=== PATIENT | female | born 1950 | race Caucasian/White ===

== ENCOUNTER → 2017-04-09 | Day surgery (SDC) | payer MEDICARE, SELFPAY | PROVIDERS: Family Provider Nurse Practitioner Family; Visit Provider Nurse Anesthetist, Certified Registered | DX: M46.1 Sacroiliitis, not elsewhere classified (principal) | CPT/HCPCS: 27096; G0260; J1040 ==

== ENCOUNTER → 2017-05-06 15:51 | Outpatient (POV) | payer MEDICARE, SELFPAY ==
[2017-05-06 16:32] VITALS: BP 184/90; PULSE 77; RESP 18; O2SAT 96; BMI 34.9
--- NOTE | 2017-05-06 16:46 | HMH.PAINSOAP ---
[facility] Pain Management SOAP Note Subjective:: This patient is a pleasant 67-year-old white female who is status post bilateral SI joint injections in March. She notes significant relief. She has 90% better. These injections worked better than previous lumbar epidural steroid injections. She is doing well with no complaints at this time. Objective:: Alert and oriented ?3 in no acute distress. Patient does have an antalgic gait. Motor strength of the lower extremities is 5/5. There is no gross sensory deficit. Assessment:: Bilateral sacroiliitis. Degenerative disc disease of lumbar spine with lumbar radiculopathy symptoms. Plan:: This patient is doing very well. Will follow up with her in 3 months. If she does have aggravation of her pain between now and then she is to call us back in the pain clinic.
== END ==
PROVIDERS: Family Provider Nurse Practitioner Family; PCP Nurse Practitioner Family; Visit Provider Anesthesiology
DX: M46.1 Sacroiliitis, not elsewhere classified (principal)
CPT/HCPCS: 99212

== ENCOUNTER → 2017-06-18 09:45 | Outpatient (POV) | payer MEDICARE, SELFPAY ==
[2017-06-18 09:59] VITALS: BP 186/81; PULSE 70; RESP 18; TEMP 36.6; O2SAT 95; BMI 39.0
--- NOTE | 2017-06-18 10:09 | HMH.PAINSOAP ---
[facility] Pain Management SOAP Note Subjective:: Patient is a pleasant 67-year-old white female who presents today to discuss potential SI joint injections. Patient has had them back in March and has had 80-90% relief for 8 weeks. patient is beginning to have the pain returned. Patient is interested in a repeat bilateral SI joint injection. Patient states that she has been more functional since this last one. Patient has tried and failed physical therapy in the past ROS General: no recent weight change, no fever, no sleep disturbances Respiratory: no cough, no shortness of air, no recurring pulmonary infections Cardiovascular/Peripheral Vascular: No chest pain, No palpitations, no edema, no shortness of breath. Gastrointestinal: no incontinence, normal bowel movements reported Genitourinary: no incontinence Musculoskeletal: Bilateral SI joint pain Psychiatric: normal mood/ affect, [denies depression], [denies anxiety] Neurological: [denies weakness in extremities], [denies balance issues] Objective:: Physical Exam General: Alert and oriented x3, no acute distress, pleasant and cooperative, [on room air] Lungs: Resps E/U, Symmetrical chest expansion, [CTA bilateral] Eyes: PERRL Musculoskeletal: Flexion and extension of lumbar spine somewhat guarded secondary to pain, deep tendon reflexes normal, strength in upper and lower extremities [5/5], slightly antalgic gait noted, bilateral Darnell's test positive. 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 Patient has done very well with her injections in the past. This note was dictated using voice recognition software may contain errors or omissions
--- NOTE | 2017-06-18 10:12 | P.CONS_ITS ---
[facility] Pain Management SOAP Note Subjective:: Patient is a pleasant 67-year-old white female who presents today to discuss potential SI joint injections. Patient has had them back in March and has had 80-90% relief for 8 weeks. patient is beginning to have the pain returned. Patient is interested in a repeat bilateral SI joint injection. Patient states that she has been more functional since this last one. Patient has tried and failed physical therapy in the past ROS General: no recent weight change, no fever, no sleep disturbances Respiratory: no cough, no shortness of air, no recurring pulmonary infections Cardiovascular/Peripheral Vascular: No chest pain, No palpitations, no edema, no shortness of breath. Gastrointestinal: no incontinence, normal bowel movements reported Genitourinary: no incontinence Musculoskeletal: Bilateral SI joint pain Psychiatric: normal mood/ affect, [denies depression], [denies anxiety] Neurological: [denies weakness in extremities], [denies balance issues] Objective:: Physical Exam General: Alert and oriented x3, no acute distress, pleasant and cooperative, [ on room air] Lungs: Resps E/U, Symmetrical chest expansion, [CTA bilateral] Eyes: PERRL Musculoskeletal: Flexion and extension of lumbar spine somewhat guarded secondary to pain, deep tendon reflexes normal, strength in upper and lower extremities [5/5], slightly antalgic gait noted, bilateral Darnell's test positive. Neurological: speech clear, emu farmer equal, no gross sensory deficits Assessment:: sacroiliitis Plan:: We will plan a repeat bilateral SI joint injection for this patient. Patient has done very well with her injections in the past. This note was dictated using voice recognition software may contain errors or omissions
== END ==
PROVIDERS: Family Provider Nurse Practitioner Family; PCP Nurse Practitioner Family; Visit Provider Clinical Nurse Specialist Family Health
DX: M46.1 Sacroiliitis, not elsewhere classified (principal)
CPT/HCPCS: 99212

== ENCOUNTER 2017-07-05 12:43 | Day surgery (SDC) | payer MEDICARE, SELFPAY ==
[2017-07-05 12:58] VITALS: BP 156/78; PULSE 78; RESP 18; O2SAT 95; BMI 32.3
--- NOTE | 2017-07-05 13:49 | HMH.PMPROC ---
- Procedure Date: 07/05/17 Time: 13:51 Anesthesiologist:: French Velez MD Complications:: None Pre-procedure Diagnosis:: Sacroiliitis Post-procedure Diagnosis:: Same Indications for Procedure:: This patient is a pleasant 67-year-old white female who we are seeing for bilateral sacroiliitis. She is tender over both SI joints. Positive Darnell's bilaterally. She benefited previously from bilateral SI joint injections with 80-90% relief in her pain symptoms. Her pain is starting to come back over both SI joints. We will do bilateral SI joint injections today to see if this helps with her pain symptoms. Procedure Details:: B/L SI joint injection under fluoroscopy Informed consent was obtained and the risks and benefits of the procedure was explained to the patient. The patient was taken to the procedure room and placed prone on the procedure table. The patient was prepped using ChloraPrep. The skin and subcutaneous tissues overlying the SI joints were anesthetized using lidocaine. I placed a 22-gauge needle first in the left SI joint and second in the right SI joint. Needle placement was confirmed with dye. After this we injected 5 mL bupivacaine 0.25% and Depo-Medrol 40 mg into each SI joint. Patient tolerated the procedure well with no complication. Plan and Disposition:: We will follow-up with her in 2 weeks. Will reevaluate symptoms at that time.
[2017-07-05 14:01] VITALS: BP 160/95; PULSE 68; RESP 18
[2017-07-05 14:02] VITALS: BP 155/75; PULSE 70; RESP 18
[2017-07-05 14:15] VITALS: BP 141/66; PULSE 68; O2SAT 98
== END 2017-07-05 14:15 | disposition home or self-care (01) ==
LOC: SC.PAINP 12:46
PROVIDERS: Family Provider Nurse Practitioner Family; PCP Nurse Practitioner Family; Visit Provider Anesthesiology
DX: M46.1 Sacroiliitis, not elsewhere classified (principal)
CPT/HCPCS: 27096; G0260; J1030; Q9966

== ENCOUNTER → 2017-08-05 14:10 | Outpatient (CLI) | payer MEDICARE, SELFPAY ==
[2017-08-05 14:46] LABS: Basophils % 0.5 % (0.1-2.0); Eosinophils # 0.2 K/mm3 (0.0-0.4); Eosinophils % 3.7 % (0.1-12.0); Hematocrit 42.3 % (37.0-47.0); Hemoglobin 14.1 g/dL (12.2-16.2); Lymphocytes # 1.3 K/mm3 (0.7-4.5); Lymphocytes % 22.2 K/mm3 (10-50); Mean Corpuscular HGB Conc 33.4 g/dL (31.8-35.4); Mean Corpuscular Hemoglobin 29.9 pg (27.0-31.2); Mean Corpuscular Volume 89.4 fl (81-99); Mean Platelet Volume 7.8 fl (7.4-10.4); Monocytes # 0.2 K/mm3 (0.1-1.0); Monocytes % 3.8 % (1.7-9.3); Neutrophils # 4.2 K/mm3 (1.8-7.8); Neutrophils % 69.8 % (37.0-80.0); Platelet Count 203 K/mm3 (142-424); Red Blood Count 4.73 M/mm3 (4.20-5.40); Red Cell Distribution Width 12.9 % (11.5-17.5)
[2017-08-05 15:34] LABS: Alanine Aminotransferase 42 U/L (12-78); Albumin Level 3.6 gm/dL (3.4-5.0); Albumin/Globulin Ratio 1.2 (1.1-1.8); Alkaline Phosphatase 96 U/L (46-116); Anion Gap 12.6 mEq/L (5-15); Aspartate Amino Transferase 27 U/L (15-37); Bilirubin,Total 0.3 mg/dL (0.2-1.0); Blood Urea Nitrogen 33 mg/dL (7-18); Calcium 9.2 mg/dL (8.5-10.1); Carbon Dioxide 30 mmol/L (21.0-32.0); Chloride 105 mmol/L (98-107); Creatinine,Serum 1.03 mg/dL (0.55-1.02); Estimated Glomerular Filt Rate 53 ml/min (>60); GFR (African American) 64 ML/MIN (>60); Globulin 3.1 gm/dl (1.3-3.2); Glucose 106 mg/dL (74-106); Potassium 3.6 mmoL/L (3.5-5.1); Sodium 144 mmol/L (136-145); Total Protein,Serum 6.7 gm/dL (6.4-8.2)
[2017-08-05 15:44] LABS: Free T4 (Free Thyroxine) 1.01 ng/dl (0.76-1.46); Thyroid Stimulating Hormone 1.58 uIU/ml (0.358-3.740)
== END ==
PROVIDERS: Visit Provider Otolaryngology
DX: Z01.818 Encounter for other preprocedural examination (principal); L98.9 Disorder of the skin and subcutaneous tissue, unspecified; E01.0 Iodine-deficiency related diffuse (endemic) goiter
CPT/HCPCS: 36415; 80053; 84439; 84443; 85025; 93005

== ENCOUNTER → 2017-08-15 15:08 | Outpatient (CLI) | payer MEDICARE, SELFPAY ==
--- NOTE | 2017-08-15 15:12 | US_ITS ---
US thyroid HISTORY: ITS.REASON: ENLARGED THYROID,IODINE DEFICIENCY,GOITER ORDERING PHYSICIAN: Kadeem Suarez MD PATIENT AGE: 67 years FINDINGS: The right lobe is 4.5 x 1.7 x 1.3 cm. 5 mm cyst mid polar region 4 mm slightly hypoechoic nodule mid polar region 6 mm cyst lower pole. 7 mm cyst lower pole The left lobe is 4.3 x 1.6 x 1.6 cm Mixed 4 mm hypoechoic nodule upper pole 3 mm hypoechoic nodule mid pole 5 mm hypoechoic nodule mid pole The isthmus is slightly prominent at 4 mm with some nodularity along left aspect of the isthmus at 4 mm isoechoic. IMPRESSION: 1. Mild thyromegaly. 2. Bilateral subcentimeter thyroid nodules, low suspicion for malignancy. Consider 6 month follow-up to confirm short-term stability
== END ==
PROVIDERS: Family Provider Nurse Practitioner Family; PCP Nurse Practitioner Family; Visit Provider Otolaryngology
DX: E01.0 Iodine-deficiency related diffuse (endemic) goiter (principal)
CPT/HCPCS: 76536

== ENCOUNTER → 2018-03-14 08:21 | Outpatient (CLI) | payer MEDICARE, SELFPAY ==
--- NOTE | 2018-03-14 08:24 | US_ITS ---
US thyroid HISTORY: Follow-up nodule/goiter ITS.REASON: Goiter ORDERING PHYSICIAN: Kadeem Suarez MD PATIENT AGE: 67 years Comparison: 08/15/2017 FINDINGS: The right lobe is 4.5 x 1.6 x 1.7 cm. Multiple nodules are present which do not appear significantly changed and described below Nodule A: Mid polar region 4 mm cystic Nodule B: 3 mm isoechoic nodule mid aspect. Nodule C: 6 x 4 mm cyst lower pole Nodule D: 8 x 4 mm hypoechoic nodule lower pole The left lobe is 4.3 x 1.7 x 1.6 cm. Nodule A: Upper pole hypoechoic 5 x 3 mm unchanged Nodule B: 3 x 2 mm hypoechoic nodule mid polar region Nodule C: Cystic nodule lower pole millimeters unchanged Nodule D: 4 mm cystic nodule lower pole unchanged The ethmoid sinuses mildly thickened at 4 mm unchanged. IMPRESSION: No change in enlarged thyroid gland with multiple benign-appearing nodules
== END ==
PROVIDERS: PCP Internal Medicine Adolescent Medicine; Visit Provider Otolaryngology
DX: E04.9 Nontoxic goiter, unspecified (principal)
CPT/HCPCS: 76536

== ENCOUNTER → 2018-04-22 08:22 | Outpatient (CLI) | payer MEDICARE, SELFPAY ==
--- NOTE | 2018-04-22 08:26 | MM_ITS ---
MM Dig screening mamm BI w/CAD ORDERING PHYSICIAN : Lo Loyola PATIENT AGE: 68 years GENDER: Female COMPARISON: May 2016, February 2015, December 2013. April 2012. April 2006 INDICATION: ITS.REASON: SCREENING no hormones. No new complaints. Mainly history. Maternal aunt with breast cancer TECHNIQUE: Standard CC and MLO images were obtained. R2 CAD reviewed. FINDINGS: Low-density breast bilaterally with no suspicious mass or suspicious calcification breast. No significant new findings. RIGHT BREAST: No new areas of concern. The small slightly bilobed nodular density at the inferior medial breast unchanged. Studies dating back to at least 2013 and 2012. Again be followed. Small lymph node deep axillary right breast is unchanged. Central lucency reflecting benign lymph node LEFT BREAST:Stable left breast with no new areas of concern. The large up to 4.5 cm length benign fat filled left axillary lymph node is been seen on studies from 2013 & April 2006. Unchanged.. IMPRESSION: Stable bilateral mammogram. No new areas of concern Bilateral follow-up one year BI-RADS Category: 2 Benign Finding(s) RECOMMENDED FOLLOW-UP: 1YR 1 YEAR FOLLOW-UP (A letter has been sent to the patient regarding results of the study.)
== END ==
PROVIDERS: PCP Nurse Practitioner Family; Visit Provider Nurse Practitioner Family
DX: Z12.31 Encounter for screening mammogram for malignant neoplasm of breast (principal)
CPT/HCPCS: 77067

== ENCOUNTER → 2018-08-18 14:45 | Outpatient (CLI) | payer MEDICARE, SELFPAY ==
--- NOTE | 2018-08-18 14:47 | US_ITS ---
US thyroid HISTORY: Trouble swallowing, dysphasia ITS.REASON: GOITER, 6 MONTH F/U ORDERING PHYSICIAN: Kadeem Suarez MD PATIENT AGE: 68 years Comparison: 03/14/2018 FINDINGS: The right lobe is 4.4 x 1.5 x 1.4 cm. There are multiple cysts on the right which are unchanged. There is an 8 mm ill-defined isoechoic area in the lower pole posteriorly not as well demonstrated on 03/14/2018 but did appear to be present on 08/15/2017 and not significantly changed. The left lobe is 4 x 1.4 x 1.4 cm. Multiple benign-appearing hypoechoic nodules are present on the left measuring up to 7 mm in the lower pole. These are stable. The isthmus is slightly prominent at 4 mm. IMPRESSION: Overall stable appearance of the thyroid gland with small bilateral nodules which have low level of suspicion for malignancy
[2018-08-18 18:52] LABS: Free T4 (Free Thyroxine) 0.96 ng/dl (0.76-1.46); Thyroid Stimulating Hormone 1.13 uIU/ml (0.358-3.740)
== END ==
PROVIDERS: PCP Internal Medicine Adolescent Medicine; Visit Provider Otolaryngology
DX: E04.9 Nontoxic goiter, unspecified (principal)
CPT/HCPCS: 36415; 76536; 84439; 84443

== ENCOUNTER → 2018-08-18 15:44 | Outpatient (CLI) | payer MEDICARE, SELFPAY | PROVIDERS: Visit Provider Otolaryngology | DX: E04.9 Nontoxic goiter, unspecified (principal) | CPT/HCPCS: 36415; 84439; 84443 ==

== ENCOUNTER → 2018-08-22 14:06 | Outpatient (POV) | payer MEDICARE, SELFPAY ==
[2018-08-22 14:36] VITALS: BP 175/89; PULSE 74; RESP 20; O2SAT 96; BMI 39.0
--- NOTE | 2018-08-22 14:46 | P.CONS_ITS ---
[facility] Pain Management SOAP Note Subjective:: This patient is a pleasant 68-year-old white female who we previously saw for bilateral hip pain. She has had bilateral SI joint injections in the past which have helped her tremendously. Her last injection gave her increased pain. She is not been here for several months. She now has developed increasing pain over both hips. She has a positive compression test over both SI joints. She does have a positive Darnell's test and positive Laura test. I believe she would benefit from repeat bilateral SI joint injections under fluoroscopy. Objective:: Alert and oriented x3 in no acute distress. Patient does have an antalgic gait. Motor strength of the lower extremities is 5/5. There is no gross sensory deficit. There is tenderness over both SI joints. Positive SI joint compression test. Positive Darnell's test and positive Laura test. Assessment:: Chronic sacroiliitis Plan:: We will seek approval and plan on bilateral SI joint injections under fluoroscopy.
== END ==
PROVIDERS: PCP Internal Medicine Adolescent Medicine; Visit Provider Anesthesiology
DX: M46.1 Sacroiliitis, not elsewhere classified (principal)
CPT/HCPCS: 99212

== ENCOUNTER 2018-09-05 08:33 | Day surgery (SDC) | payer MEDICARE, SELFPAY ==
[2018-09-05 08:40] VITALS: BP 154/73; PULSE 77; RESP 18; TEMP 36.5; O2SAT 94; BMI 39.0
[2018-09-05 09:12] VITALS: BP 145/83; PULSE 76; RESP 18; O2SAT 95; O2SAT 96
[2018-09-05 09:20] VITALS: BP 152/86; PULSE 68; RESP 18
--- NOTE | 2018-09-05 09:30 | HMH.PMPROC ---
- Procedure Date: 09/05/18 Time: 09:30 Anesthesiologist:: French Velez MD Complications:: None Pre-procedure Diagnosis:: Sacroiliitis Post-procedure Diagnosis:: Same Indications for Procedure:: This patient is a pleasant 68-year-old white female who we are treating for bilateral hip pain. She is tender over both SI joints. She has a positive compression test. She has a positive Darnell's test and a positive Laura test. She is benefited previously from SI joint injections. She is 60 to 70% better after her last injection. She has pain that is starting to return. We will do repeat bilateral SI joint injections under fluoroscopy today. Procedure Details:: B/L SI joint injection under fluoroscopy Informed consent was obtained and the risks and benefits of the procedure was explained to the patient. The patient was taken to the procedure room and placed prone on the procedure table. The patient was prepped using ChloraPrep. The skin and subcutaneous tissues overlying the SI joints were anesthetized using lidocaine. I placed a 22-gauge needle first in the left SI joint and second in the right SI joint. Needle placement was confirmed with dye. After this we injected 5 mL bupivacaine 0.25% and Depo-Medrol 40 mg into each SI joint. Patient tolerated the procedure well with no complication. Plan and Disposition:: We will follow-up with this patient in 2 weeks. Will reevaluate symptoms at that time.
== END 2018-09-05 09:20 | disposition home or self-care (01) ==
LOC: SC.PAINP 08:34
PROVIDERS: PCP Internal Medicine Adolescent Medicine; Visit Provider Anesthesiology
DX: M46.1 Sacroiliitis, not elsewhere classified (principal)
CPT/HCPCS: 27096; G0260; J1030; Q9966

== ENCOUNTER → 2018-10-06 10:15 | Outpatient (POV) | payer MEDICARE, SELFPAY ==
[2018-10-06 10:24] VITALS: BP 165/82; PULSE 69; RESP 18; O2SAT 98; BMI 39.0
--- NOTE | 2018-10-06 10:36 | HMH.PAINSOAP ---
[facility] Pain Management SOAP Note Subjective:: Patient is a pleasant 68-year-old white female who we are treating for bilateral hip pain. She had bilateral SI joint injections about a month ago and reports that she had 90% relief with this. She has however started to develop pain to her lower back radiating to bilateral legs. She rates her pain a 4 out of 10 today. That she is also taking diclofenac 75 mg p.o. twice daily. She is also continuing a home stretching program. ROS General: no recent weight change, no fever, no sleep disturbances Respiratory: no cough, no shortness of air, no recurring pulmonary infections Cardiovascular/Peripheral Vascular: No chest pain, No palpitations, no edema, no shortness of breath. Gastrointestinal: no incontinence, normal bowel movements reported Genitourinary: no incontinence Musculoskeletal: Low back pain, bilateral leg pain Psychiatric: normal mood/ affect, [denies depression], [denies anxiety] Neurological: [denies weakness in extremities], [denies balance issues] Objective:: Physical Exam General: Alert and oriented x3, no acute distress, pleasant and cooperative, [on room air] Lungs: Resps E/U, Symmetrical chest expansion, Eyes: PERRL Musculoskeletal: Flexion and extension of lumbar spine somewhat guarded secondary to pain, deep tendon reflexes normal, strength in upper and lower extremities [5/5], [abnormal gait noted], positive Laura test, positive Darnell test, positive compression test Neurological: speech clear, diesel fitter mechanic equal, no gross sensory deficits Assessment:: Sacroiliitis Plan:: We will schedule the patient for bilateral SI joint injections. She will continue home stretching program and NSAIDs. We see her back after her procedure and reassess her symptoms at that time. She has been instructed to call the office if she has any issues before that time. Dr. Velez has reviewed this note and agrees with this plan of care. This note was dictated using voice recognition software and may contain errors or omissions
--- NOTE | 2018-10-06 10:41 | P.CONS_ITS ---
[facility] Pain Management SOAP Note Subjective:: Patient is a pleasant 68-year-old white female who we are treating for bilateral hip pain. She had bilateral SI joint injections about a month ago and reports that she had 90% relief with this. She has however started to develop pain to her lower back radiating to bilateral legs. She rates her pain a 4 out of 10 today. That she is also taking diclofenac 75 mg p.o. twice daily. She is also continuing a home stretching program. ROS General: no recent weight change, no fever, no sleep disturbances Respiratory: no cough, no shortness of air, no recurring pulmonary infections Cardiovascular/Peripheral Vascular: No chest pain, No palpitations, no edema, no shortness of breath. Gastrointestinal: no incontinence, normal bowel movements reported Genitourinary: no incontinence Musculoskeletal: Low back pain, bilateral leg pain Psychiatric: normal mood/ affect, [denies depression], [denies anxiety] Neurological: [denies weakness in extremities], [denies balance issues] Objective:: Physical Exam General: Alert and oriented x3, no acute distress, pleasant and cooperative, [on room air] Lungs: Resps E/U, Symmetrical chest expansion, Eyes: PERRL Musculoskeletal: Flexion and extension of lumbar spine somewhat guarded secondary to pain, deep tendon reflexes normal, strength in upper and lower extremities [5/5], [abnormal gait noted], positive Laura test, positive Darnell test, positive compression test Neurological: speech clear, book agent equal, no gross sensory deficits Assessment:: Sacroiliitis Plan:: We will schedule the patient for bilateral SI joint injections. She will continue home stretching program and NSAIDs. We see her back after her procedure and reassess her symptoms at that time. She has been instructed to call the office if she has any issues before that time. Dr. Velez has reviewed this note and agrees with this plan of care. This note was dictated using voice recognition software and may contain errors or omissions
== END ==
PROVIDERS: PCP Internal Medicine Adolescent Medicine; Visit Provider Clinical Nurse Specialist Family Health
DX: M46.1 Sacroiliitis, not elsewhere classified (principal)
CPT/HCPCS: 99212

== ENCOUNTER → 2018-11-25 10:37 | Outpatient (POV) | payer MEDICARE, SELFPAY ==
[2018-11-25 10:56] VITALS: BP 147/85; PULSE 77; RESP 18; O2SAT 99; BMI 39.0
--- NOTE | 2018-11-25 11:39 | HMH.PAINSOAP ---
[facility] Pain Management SOAP Note Subjective:: Patient is a pleasant 68-year-old white female who presents today for follow-up after SI joint injection. She is doing extremely well rating her pain a 2 out of 10 she states she gets 90% relief for several months with her injections. She would like to set one up in about a month. She is not on any anticoagulation therapy and is continuing her home stretching program. She is also continuing her anti-inflammatories as needed. ROS General: no recent weight change, no fever, no sleep disturbances Respiratory: no cough, no shortness of air, no recurring pulmonary infections Cardiovascular/Peripheral Vascular: No chest pain, No palpitations, no edema, no shortness of breath. Gastrointestinal: no incontinence, normal bowel movements reported Genitourinary: no incontinence Musculoskeletal: SI joint pain Psychiatric: normal mood/ affect Neurological: [denies weakness in extremities], [denies balance issues] Objective:: Physical Exam General: Alert and oriented x3, no acute distress, pleasant and cooperative, [on room air] Lungs: Resps E/U, Symmetrical chest expansion, Eyes: PERRL Musculoskeletal: Flexion and extension of lumbar spine somewhat guarded secondary to pain, deep tendon reflexes normal, strength in upper and lower extremities [5/5], slightly antalgic gait noted, positive Laura test positive Kvng's test and positive SI joint compression test bilaterally Neurological: speech clear, screen printing press operator equal, no gross sensory deficits Assessment:: Sacroiliitis Plan:: We will schedule her for bilateral SI joint injections in several weeks. Overall patient does extremely well with this.she is been instructed to call the office if she has any issues prior to next appointment. Dr. Velez has reviewed this note and agrees with this plan of care. This note was dictated using voice recognition software and may contain errors or omissions Pain Management Hx Components *Have you ever received a pneumonia vaccine?: Yes *Have you received a flu vaccine this season?: Yes - *Social History *Occupational Status:: other *Travel in the last 8 weeks: None
== END ==
PROVIDERS: PCP Internal Medicine Adolescent Medicine; Visit Provider Clinical Nurse Specialist Family Health
DX: M46.1 Sacroiliitis, not elsewhere classified (principal)
CPT/HCPCS: 99212

== ENCOUNTER → 2019-01-26 11:01 | Outpatient (POV) | payer MEDICARE, SELFPAY ==
[2019-01-26 11:37] VITALS: BP 127/78; PULSE 61; RESP 18; O2SAT 98; BMI 39.0
--- NOTE | 2019-01-26 12:14 | HMH.PAINSOAP ---
[facility] Pain Management SOAP Note Subjective:: Patient is a pleasant 68-year-old white female who presents today for follow-up after SI joint injections. Patient states she has no pain today. She would like to have another round of injections before the holidays. Patient gets typically 90% relief first several months after injections. Patient and I briefly talked about a corner lock procedure. This may be something to be interested in the future. ROS General: no recent weight change, no fever, no sleep disturbances Respiratory: no cough, no shortness of air, no recurring pulmonary infections Cardiovascular/Peripheral Vascular: No chest pain, No palpitations, no edema, no shortness of breath. Gastrointestinal: no incontinence, normal bowel movements reported Genitourinary: no incontinence Musculoskeletal: SI joint pain Psychiatric: normal mood/ affect, , Neurological: [denies weakness in extremities], [denies balance issues] Objective:: Physical Exam General: Alert and oriented x3, no acute distress, pleasant and cooperative, [on room air] Lungs: Resps E/U, Symmetrical chest expansion, [CTA bilateral] Eyes: PERRL Musculoskeletal: Flexion and extension of bar spine somewhat guarded secondary to pain, deep tendon reflexes normal, strength in upper and lower extremities [5/5], [abnormal gait noted] positive Laura test bilaterally, positive SI joint compression test bilaterally, positive Kvng's test Neurological: speech clear, senior lead java developer equal, no gross sensory deficits Assessment:: Sacroiliitis Plan:: We will schedule the patient for SI joint injections bilaterally prior to the holidays. I will follow-up with her 2 weeks after reassess her symptoms at that time she is been instructed to call the office if she has any issues prior to her next appointment. Dr. Velez has reviewed this note and agrees with this plan of care. This note was dictated using voice recognition software and may contain errors or omissions [facility] History I have reviewed the patient's past medical history: Yes Medical History: Reports:: Gastroesophageal Reflux Disease(GERD), Hyperlipidemia, Hypertension Denies:: Cancer, Diabetes Mellitus Type 1, Diabetes Mellitus Type 2, Internal Pacemaker, Lung Disease, MRSA, Seizures *Have you ever received a pneumonia vaccine?: Yes *Have you received a flu vaccine this season?: Yes Other Medical History: Reports: Blood Transfusion Reaction, Other Laterality Cases: Bilateral: Tonsillectomy Other Surgeries: Yes: Cardiac Catheterization, Hysterectomy-Total, Other. No: Pacemaker Amputation: No Fractures: No - *Social History Smoking Status: Never smoker Alcohol Intake: current Alcohol Intake Frequency:: holidays/special occasions only *Occupational Status:: other Housing: house Household Members: significant other *Travel in the last 8 weeks: None Family Hx:: Coronary Artery Disease, Diabetes
== END ==
PROVIDERS: PCP Internal Medicine Adolescent Medicine; Visit Provider Clinical Nurse Specialist Family Health
DX: M46.1 Sacroiliitis, not elsewhere classified (principal)
CPT/HCPCS: 99212

== ENCOUNTER → 2019-03-23 10:18 | Outpatient (POV) | payer MEDICARE, SELFPAY ==
--- NOTE | 2019-03-23 10:48 | HMH.PAINSOAP ---
[facility] Pain Management SOAP Note Subjective:: Patient is a pleasant 69-year-old white female who presents today for follow-up after bilateral SI joint injections overall she is doing well. She rates her pain a 4 out of 10 however it is mostly in her left knee. Patient and I discussed getting in some x-rays and potential knee injections. She like to try to do this before the end of the year. She is also will be traveling and would like to set up some SI joint injections for June. She gets 80% relief after 3 months with her injections. She has tried and failed physical therapy, anti-inflammatories. She is continuing with a home stretching program. ROS General: no recent weight change, no fever, no sleep disturbances Respiratory: no cough, no shortness of air, no recurring pulmonary infections Cardiovascular/Peripheral Vascular: No chest pain, No palpitations, no edema, no shortness of breath. Gastrointestinal: no new onset incontinence, normal bowel movements reported Genitourinary: no new onset incontinence Musculoskeletal: Left knee pain, SI joint pain Psychiatric: normal mood/ affect Neurological: [denies new onset weakness in extremities], [denies new onset balance issues] Objective:: Physical Exam General: Alert and oriented x3, no acute distress, pleasant and cooperative, [on room air] Lungs: Resps E/U, Symmetrical chest expansion, Eyes: PERRL Musculoskeletal: Flexion and extension of lumbar spine somewhat guarded secondary to pain, deep tendon reflexes normal, strength in upper and lower extremities [5/5], [abnormal gait noted] decreased range of motion left knee secondary to pain, positive Laura test, positive Darnell's test and positive SI joint compression test bilaterally Neurological: speech clear, 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 We will also set her up for bilateral SI joint injections in June. I will follow-up with the patient after her injections reassess her symptoms at that time she is been instructed to call the office if she has any issues prior to her next appointment. Dr. Velez has reviewed this note and agrees with this plan of care. This note was dictated using voice recognition software and may contain errors or omissions [facility] History I have reviewed the patient's past medical history: Yes Medical History: Reports:: Gastroesophageal Reflux Disease(GERD), Hyperlipidemia, Hypertension Denies:: Cancer, Diabetes Mellitus Type 1, Diabetes Mellitus Type 2, Internal Pacemaker, Lung Disease, MRSA, Seizures *Have you ever received a pneumonia vaccine?: (n/a) *Have you received a flu vaccine this season?: (n/a) Other Medical History: Reports: Blood Transfusion Reaction, Other Laterality Cases: Bilateral: Tonsillectomy Other Surgeries: Yes: Cardiac Catheterization, Hysterectomy-Total, Other. No: Pacemaker Amputation: No Fractures: No - *Social History Smoking Status: Never smoker Alcohol Intake: current Alcohol Intake Frequency:: a few times a month *Occupational Status:: retired Housing: house Household Members: significant other *Travel in the last 8 weeks: None Family Hx:: Coronary Artery Disease, Diabetes
--- NOTE | 2019-03-23 10:51 | P.CONS_ITS ---
[facility] Pain Management SOAP Note Subjective:: Patient is a pleasant 69-year-old white female who presents today for follow-up after bilateral SI joint injections overall she is doing well. She rates her pain a 4 out of 10 however it is mostly in her left knee. Patient and I discussed getting in some x-rays and potential knee injections. She like to try to do this before the end of the year. She is also will be traveling and would like to set up some SI joint injections for June. She gets 80% relief after 3 months with her injections. She has tried and failed physical therapy, anti- inflammatories. She is continuing with a home stretching program. ROS General: no recent weight change, no fever, no sleep disturbances Respiratory: no cough, no shortness of air, no recurring pulmonary infections Cardiovascular/Peripheral Vascular: No chest pain, No palpitations, no edema, no shortness of breath. Gastrointestinal: no new onset incontinence, normal bowel movements reported Genitourinary: no new onset incontinence Musculoskeletal: Left knee pain, SI joint pain Psychiatric: normal mood/ affect Neurological: [denies new onset weakness in extremities], [denies new onset balance issues] Objective:: Physical Exam General: Alert and oriented x3, no acute distress, pleasant and cooperative, [on room air] Lungs: Resps E/U, Symmetrical chest expansion, Eyes: PERRL Musculoskeletal: Flexion and extension of lumbar spine somewhat guarded secondary to pain, deep tendon reflexes normal, strength in upper and lower extremities [5/5], [abnormal gait noted] decreased range of motion left knee secondary to pain, positive Laura test, positive Darnell's test and positive SI joint compression test bilaterally Neurological: 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 We will also set her up for bilateral SI joint injections in June. I will follow-up with the patient after her injections reassess her symptoms at that time she is been instructed to call the office if she has any issues prior to her next appointment. Dr. Velez has reviewed this note and agrees with this plan of care. This note was dictated using voice recognition software and may contain errors or omissions [facility] History I have reviewed the patient's past medical history: Yes Medical History: Reports:: Gastroesophageal Reflux Disease(GERD), Hyperlipidemia, Hypertension Denies:: Cancer, Diabetes Mellitus Type 1, Diabetes Mellitus Type 2, Internal Pacemaker, Lung Disease, MRSA, Seizures *Have you ever received a pneumonia vaccine?: (n/a) *Have you received a flu vaccine this season?: (n/a) Other Medical History: Reports: Blood Transfusion Reaction, Other Laterality Cases: Bilateral: Tonsillectomy Other Surgeries: Yes: Cardiac Catheterization, Hysterectomy-Total, Other. No: Pacemaker Amputation: No Fractures: No - *Social History Smoking Status: Never smoker Alcohol Intake: current Alcohol Intake Frequency:: a few times a month *Occupational Status:: retired Housing: house Household Members: significant other *Travel in the last 8 weeks: None Family Hx:: Coronary Artery Disease, Diabetes
[2019-03-23 12:46] VITALS: BP 142/75; PULSE 74; RESP 18; O2SAT 99; BMI 39.0
== END ==
PROVIDERS: PCP Internal Medicine Adolescent Medicine; Visit Provider Clinical Nurse Specialist Family Health
DX: M46.1 Sacroiliitis, not elsewhere classified (principal); M25.562 Pain in left knee
CPT/HCPCS: 99212

== ENCOUNTER → 2019-04-01 09:50 | Outpatient (CLI) | payer MEDICARE, SELFPAY ==
--- NOTE | 2019-04-01 09:54 | XR_ITS ---
PROCEDURE: XR KNEE LT 3V CLINICAL INDICATION: LT KNEE PAIN COMPARISON: No exams were available for comparison FINDINGS: No fracture or dislocation. No lytic or blastic change. Moderate to severe osteoarthritic change medial compartment with chondrocalcinosis medial lateral meniscus. Mild osteoarthritic changes are present at the lateral compartment and patellofemoral joint. No fracture or dislocation. IMPRESSION: Osteoarthritis with chondrocalcinosis Dictated by: Mateo Holt MD 04/01/2019 11:55 Electronically signed by Mateo Holt MD in [place] 04/01/2019 11:55
== END ==
PROVIDERS: PCP Internal Medicine Adolescent Medicine; Visit Provider Clinical Nurse Specialist Family Health
DX: M25.562 Pain in left knee (principal)
CPT/HCPCS: 73562

== ENCOUNTER → 2019-04-13 11:58 | Outpatient (POV) | payer MEDICARE, SELFPAY ==
[2019-04-13 12:15] VITALS: BP 154/68; PULSE 64; RESP 18; O2SAT 98; BMI 39.0
--- NOTE | 2019-04-13 12:17 | HMH.PAINSOAP ---
[facility] Pain Management SOAP Note Subjective:: Patient is a pleasant 69-year-old white female who presents today for follow-up after a left knee intra-articular injection. She is being treated for left knee pain with degenerative osteoarthritis. Patient rates her pain a 0 out of 10 today. She says that she got 100% relief and is continuing to have relief of her knee pain. She says she is able to walk and stand for longer periods of time. Patient is leaving to go to [place] for the winter months. She says that she is feeling well and is not having any problems at this time. Patient is continuing with anti-inflammatories and a home stretching program. Review of Systems General: No recent weight changes, no fever, no sleep disturbances Respiratory: No cough, no shortness of air, no recurring pulmonary infections Cardiovascular/peripheral vascular: No chest pain, no palpitations, no edema, no shortness of breath Gastrointestinal: No new onset incontinence, normal bowel movements reported Genitourinary: No new onset incontinence Musculoskeletal: Left knee pain Psychiatric: Normal mood/affect Neurological: [Denies weakness in extremities], [denies balance issues] Objective:: Physical exam General: Alert and oriented x3, no acute distress, pleasant and cooperative, [on room air] Lungs: Respirations even and unlabored, symmetrical chest expansion Eyes: PERRL Musculoskeletal: Flexion and extension of lumbar spine somewhat guarded secondary to pain, deep tendon reflexes normal, strength in upper and lower extremities [5/5], [abnormal gait noted] 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 We will see the patient back in the clinic as needed. The patient has been instructed to contact the clinic if she has any concerns before her next appointment. Dr. Velez has reviewed this note and agrees with this plan of care. This note was dictated using voice recognition software and make contain errors or omissions. [facility] History I have reviewed the patient's past medical history: Yes Medical History: Reports:: Gastroesophageal Reflux Disease(GERD), Hyperlipidemia, Hypertension Denies:: Cancer, Diabetes Mellitus Type 1, Diabetes Mellitus Type 2, Internal Pacemaker, Lung Disease, MRSA, Seizures *Have you ever received a pneumonia vaccine?: Yes *Have you received a flu vaccine this season?: Yes Other Medical History: Reports: Blood Transfusion Reaction, Other Laterality Cases: Bilateral: Tonsillectomy Other Surgeries: Yes: Cardiac Catheterization, Hysterectomy-Total, Other. No: Pacemaker Amputation: No Fractures: No - *Social History Smoking Status: Never smoker Alcohol Intake: never Alcohol Intake Frequency:: a few times a month *Occupational Status:: other Housing: house Household Members: significant other *Travel in the last 8 weeks: None Family Hx:: Coronary Artery Disease, Diabetes
== END ==
PROVIDERS: PCP Internal Medicine Adolescent Medicine; Visit Provider Clinical Nurse Specialist Family Health
DX: M17.12 Unilateral primary osteoarthritis, left knee
CPT/HCPCS: 99212

== ENCOUNTER 2019-07-24 09:34 | Day surgery (SDC) | payer MEDICARE, SELFPAY ==
[2019-07-24 09:57] VITALS: BP 184/96; PULSE 66; RESP 18; TEMP 36.6; O2SAT 97; BMI 39.0
[2019-07-24 10:23] VITALS: BP 142/78; PULSE 85; RESP 18
--- NOTE | 2019-07-24 10:23 | P.PCN_ITS ---
- Procedure Date: 07/24/19 Time: 10:23 Anesthesiologist:: French Velez MD Complications:: None Pre-procedure Diagnosis:: Left knee pain with degenerative osteoarthritis Post-procedure Diagnosis:: Same Indications for Procedure:: This patient is a pleasant 69-year-old white female who we are treating for bilateral hip pain and left knee pain. She has increasing degenerative osteoarthritis with left knee pain. She has changed her gait which is aggravating her hip pain. She has exacerbated pain which is affecting her activities of daily living. It is affecting her functionality. Because of her severe left knee pain we will do an injection today to keep her out of the emergency room and off oral opioids. Procedure Details:: Left knee intra-articular injection Informed consent was obtained and the risk and benefits of the procedure were explained to the patient. Patient was taken to the procedure room. The left knee was prepped using ChloraPrep. A 25-gauge needle was inserted and advanced first medially then laterally to inject 10 mL bupivacaine 0.25% Depo-Medrol 40 mg into the left knee. Patient tolerated the procedure well with no compli cations. Plan and Disposition:: We will follow-up with her next week. We will plan on bilateral SI joint injections if she is still having significant pain over both hips.
[2019-07-24 10:24] VITALS: BP 145/87; PULSE 89; RESP 18; O2SAT 98
[2019-07-24 10:30] VITALS: BP 174/82; PULSE 62; RESP 18; O2SAT 97
== END 2019-07-24 10:33 | disposition home or self-care (01) ==
LOC: SC.PAINP 09:36
PROVIDERS: PCP Internal Medicine Adolescent Medicine; Visit Provider Anesthesiology
DX: M17.12 Unilateral primary osteoarthritis, left knee (principal); I10 Essential (primary) hypertension; E78.5 Hyperlipidemia, unspecified; K21.9 Gastro-esophageal reflux disease without esophagitis; Z90.89 Acquired absence of other organs; Z90.710 Acquired absence of both cervix and uterus; Z79.1 Long term (current) use of non-steroidal anti-inflammatories (NSAID); Z79.899 Other long term (current) drug therapy
CPT/HCPCS: 20610; J1030

== ENCOUNTER 2019-07-31 10:15 | Day surgery (SDC) | payer MEDICARE, SELFPAY ==
[2019-07-31 10:50] VITALS: BP 124/73; PULSE 62; RESP 18; O2SAT 93; BMI 39.0
--- NOTE | 2019-07-31 11:04 | P.PCN_ITS ---
- Procedure Date: 07/31/19 Time: 11:04 Anesthesiologist:: French Velez MD Complications:: None Pre-procedure Diagnosis:: Sacroiliitis Post-procedure Diagnosis:: Same Indications for Procedure:: This patient is a pleasant 69-year-old white female who we are treating for bilateral hip pain and left knee pain. She did have a left knee intra-articular injection at her last visit. Her knee is doing much better. She did have bilateral sacroiliitis and aggravation of her bilateral hip pain because of her change in gait from her previous knee problems. She is tender over both SI joints. She has positive SI joint compression test bilaterally. She has a positive Darnell's test bilaterally. She has a positive Laura test bilaterally. We will do bilateral SI joint injections today to help her with her residual pain symptoms. Both of these pains have affected her function and activities of daily living. We will do bilateral SI joint injections today to keep her off oral opioids and out of the emergency room. Procedure Details:: B/L SI joint injection under fluoroscopy Informed consent was obtained and the risks and benefits of the procedure was ex plained to the patient. The patient was taken to the procedure room and placed prone on the procedure table. The patient was prepped using ChloraPrep. The skin and subcutaneous tissues overlying the SI joints were anesthetized using lidocaine. I placed a 22-gauge needle first in the left SI joint and second in the right SI joint. Needle placement was confirmed with dye. After this we injected 5 mL bupivacaine 0.25% and Depo-Medrol 40 mg into each SI joint. Patient tolerated the procedure well with no complication. Plan and Disposition:: We will follow-up with her in 2 weeks. Will reevaluate symptoms at that time.
[2019-07-31 11:06] VITALS: BP 125/78; BP 128/78; PULSE 89; PULSE 90; RESP 18; O2SAT 99
[2019-07-31 11:32] VITALS: BP 144/77; PULSE 61; RESP 20; O2SAT 98
== END 2019-07-31 11:33 | disposition home or self-care (01) ==
LOC: SC.PAINP 10:17
PROVIDERS: PCP Internal Medicine Adolescent Medicine; Visit Provider Anesthesiology
DX: M46.1 Sacroiliitis, not elsewhere classified (principal); M25.562 Pain in left knee; I10 Essential (primary) hypertension; M19.90 Unspecified osteoarthritis, unspecified site; Z79.899 Other long term (current) drug therapy
CPT/HCPCS: 27096; G0260; J1030; Q9966

== ENCOUNTER → 2019-08-17 14:45 | Outpatient (POV) | payer MEDICARE, SELFPAY ==
[2019-08-17 15:09] VITALS: BP 147/84; PULSE 79; RESP 18; TEMP 36.6; O2SAT 98; BMI 28.7
--- NOTE | 2019-08-17 16:02 | HMH.PAINSOAP ---
[facility] Pain Management SOAP Note Subjective:: Patient is a pleasant 69-year-old white female who presents today for follow-up after bilateral SI joint injections. She rates her pain a 2 out of 10 and is doing extremely well rating her improvement at 80%. Patient would like to repeat this in several months. I do believe that would be beneficial for her. ROS General: no recent weight change, no fever, no sleep disturbances Respiratory: no cough, no shortness of air, no recurring pulmonary infections Cardiovascular/Peripheral Vascular: No chest pain, No palpitations, no edema, no shortness of breath. Gastrointestinal: no new onset incontinence, normal bowel movements reported Genitourinary: no new onset incontinence Musculoskeletal: Bilateral SI joint pain Psychiatric: normal mood/ affect Neurological: [denies new onset weakness in extremities], [denies new onset balance issues] Objective:: Physical Exam General: Alert and oriented x3, no acute distress, pleasant and cooperative, [on room air] Lungs: Resps E/U, Symmetrical chest expansion, Eyes: PERRL Musculoskeletal: Flexion and extension of lumbar spine somewhat guarded secondary to pain, deep tendon reflexes normal, strength in upper and lower extremities [5/5], slightly antalgic gait noted, SI joint compression test positive bilaterally, Darnell's test positive bilaterally, Shaw's test bilaterally positive 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 Given the efficacy of this in the past I believe it would be beneficial. I will follow-up with the patient after her injection reassess her symptoms at that time. Dr. Velez has reviewed this note and agrees with this plan of care. This note was dictated using voice recognition software and may contain errors or omissions [facility] History I have reviewed the patient's past medical history: Yes Medical History: Reports:: Gastroesophageal Reflux Disease(GERD), Hyperlipidemia, Hypertension Denies:: Cancer, Diabetes Mellitus Type 1, Diabetes Mellitus Type 2, Internal Pacemaker, Lung Disease, MRSA, Seizures *Have you ever received a pneumonia vaccine?: Yes *Have you received a flu vaccine this season?: Yes Other Medical History: Reports: Blood Transfusion Reaction, Other Laterality Cases: Bilateral: Tonsillectomy Other Surgeries: Yes: Cardiac Catheterization, Hysterectomy-Total, Other. No: Pacemaker Amputation: No Fractures: No - *Social History Smoking Status: Never smoker Alcohol Intake: never Alcohol Intake Frequency:: a few times a month *Occupational Status:: other Housing: house Household Members: significant other *Travel in the last 8 weeks: None Family Hx:: Coronary Artery Disease, Diabetes
== END ==
PROVIDERS: PCP Internal Medicine Adolescent Medicine; Visit Provider Clinical Nurse Specialist Family Health
DX: M46.1 Sacroiliitis, not elsewhere classified (principal)
CPT/HCPCS: 99212

== ENCOUNTER 2019-10-23 10:04 | Day surgery (SDC) | payer MEDICARE, SELFPAY ==
[2019-10-23 10:41] VITALS: BP 170/72; PULSE 74; RESP 20; TEMP 36.2; O2SAT 96; BMI 39.0
[2019-10-23 11:13] VITALS: BP 125/85; PULSE 85; RESP 18; O2SAT 98
[2019-10-23 11:14] VITALS: BP 133/85; PULSE 79; RESP 18; O2SAT 99
--- NOTE | 2019-10-23 11:16 | HMH.PMPROC ---
- Procedure Date: 10/23/19 Time: 11:16 Anesthesiologist:: French Velez MD Complications:: None Pre-procedure Diagnosis:: Bilateral sacroiliitis Post-procedure Diagnosis:: Same Indications for Procedure:: Patient a pleasant 69-year-old white female who we are treating for bilateral hip pain. She is tender over both SI joints. She is positive SI joint compression test bilaterally. She is positive Darnell's test bilaterally. She is positive Laura test bilaterally. We will do bilateral SI joint injections under fluoroscopy today to help her with her pain symptoms. She does get about 2-1/2 months to 3 months pain relief from these injections. Procedure Details:: B/L SI joint injection under fluoroscopy Informed consent was obtained and the risks and benefits of the procedure was explained to the patient. The patient was taken to the procedure room and placed prone on the procedure table. The patient was prepped using ChloraPrep. The skin and subcutaneous tissues overlying the SI joints were anesthetized using lidocaine. I placed a 22-gauge needle first in the left SI joint and second in the right SI joint. Needle placement was confirmed with dye. After this we injected 5 mL bupivacaine 0.25% and Depo-Medrol 40 mg into each SI joint. Patient tolerated the procedure well with no complication. Plan and Disposition:: We will follow-up with her in 2 weeks. Will reevaluate her symptoms at that time.
[2019-10-23 11:24] VITALS: BP 146/77; PULSE 68; RESP 20; O2SAT 96
== END 2019-10-23 11:25 | disposition home or self-care (01) ==
LOC: SC.PAINP 10:06
PROVIDERS: PCP Internal Medicine Adolescent Medicine; Visit Provider Anesthesiology
DX: M46.1 Sacroiliitis, not elsewhere classified (principal); I10 Essential (primary) hypertension; E11.9 Type 2 diabetes mellitus without complications; B15.9 Hepatitis A without hepatic coma; Z90.89 Acquired absence of other organs; Z79.899 Other long term (current) drug therapy
CPT/HCPCS: 27096; G0260; J1030; Q9966

== ENCOUNTER 2019-11-06 09:24 | Day surgery (SDC) | payer MEDICARE, SELFPAY ==
[2019-11-06 09:52] VITALS: BP 152/117; PULSE 66; RESP 18; TEMP 36.2; O2SAT 95; BMI 39.0
[2019-11-06 10:35] VITALS: BP 140/78; BP 145/88; PULSE 79; RESP 18; O2SAT 98
--- NOTE | 2019-11-06 10:36 | HMH.PMPROC ---
- Procedure Date: 11/06/19 Time: 10:36 Anesthesiologist:: French Velez MD Complications:: None Pre-procedure Diagnosis:: Left knee pain with degenerative osteoarthritis Post-procedure Diagnosis:: Same Indications for Procedure:: This patient is a pleasant 69-year-old white female who we have been treating for bilateral sacroiliitis. She does have some increasing left knee pain today. She has chronic left knee pain with degenerative osteoarthritis. We will do a left knee intra-articular injection today to help her with her pain symptoms. Procedure Details:: Left knee intra-articular injection Informed consent was obtained and the risk and benefits of the procedure was explained to the patient. The patient was taken to the procedure room. Left knee was prepped using ChloraPrep. We used a 25-gauge needle and injected first medially then laterally 10 mL bupivacaine 0.25% and Depo-Medrol 40 mg into the left knee. Patient tolerated the procedure well with no complications. Plan and Disposition:: We will follow-up with her in 2 weeks. Will reevaluate symptoms at that time.
[2019-11-06 10:50] VITALS: BP 135/73; PULSE 57; RESP 18; O2SAT 95
== END 2019-11-06 10:50 | disposition home or self-care (01) ==
LOC: SC.PAINP 09:26
PROVIDERS: PCP Internal Medicine Adolescent Medicine; Visit Provider Anesthesiology
DX: M17.12 Unilateral primary osteoarthritis, left knee (principal); I10 Essential (primary) hypertension; K21.9 Gastro-esophageal reflux disease without esophagitis; Z90.89 Acquired absence of other organs; B94.2 Sequelae of viral hepatitis; Z79.899 Other long term (current) drug therapy
CPT/HCPCS: 20610; J1040

== ENCOUNTER → 2019-11-16 08:59 | Outpatient (CLI) | payer MEDICARE, SELFPAY ==
--- NOTE | 2019-11-16 09:02 | MM_ITS ---
PROCEDURE: MM DIG SCREENING MAMM BI W/CAD Digital Breast Tomosynthesis Included CLINICAL INDICATION: SCREENING COMPARISON: MG DMSB DIG MAMM-SCREEN CRISTI from 02/18/2015 MG DMSB DIG MAMM-SCREEN CRISTI W/CAD from 05/22/2016 MG [facility]BI MM Dig screening mamm BI w/CAD from 04/22/2018 TECHNIQUE: Standard CC and MLO images and 3D Tomosynthesis was obtained. R2 CAD reviewed. FINDINGS: Mostly fatty replaced fibroglandular tissue. There is an area of asymmetric density in the inferior aspect of the right breast which is stable and may be due to an island of fibroglandular tissue. Benign-appearing nodule superior right breast with central lucency consistent with a lymph node. No malignant appearing mass or malignant-appearing microcalcification IMPRESSION: BI-RAD Category: 2 Benign Finding(s) FOLLOW-UP: 1YR 1 Year Follow-up (A letter has been sent to the patient regarding results of the study.) Dictated b Mateo Holt MD 11/20/2019 10:10 Mateo Holt MD in [place] 11/20/2019 10:10
--- NOTE | 2019-11-16 09:02 | US_ITS ---
PROCEDURE: US THYROID CLINICAL INDICATION: GOITER,HTN Follow-up nodules COMPARISON: THY US thyroid from 08/18/2018 FINDINGS: The right lobe is 4.5 x 1.8 x 1.6 cm. The isthmus is slightly thickened at 4 mm. Multiple cyst on the right the largest in the lower pole at 8 mm. This does contain some internal echoes. There is an isoechoic nodule in the right lobe posteriorly at 8 mm not significantly changed The left lobe is 4.4 x 1.8 x 1.4 cm containing multiple hypoechoic nodules the largest in the midpole at 6 mm not significantly changed. There are some low level internal echoes within this nodule. IMPRESSION: No change enlarged thyroid gland with bilateral benign-appearing nodules Dictated by: Mateo Holt MD 11/16/2019 17:03 Electronically signed by Mateo Holt MD in [facility] 11/16/2019 17:03
--- NOTE | 2019-11-16 09:02 | XR_ITS ---
PROCEDURE: XR DEXA AXIAL SKELETON CLINICAL HISTORY: OSTEOPENIA,HTN COMPARISON: No exams were available for comparison FINDINGS: The right hip BMD is 0.632 with a t-score of -2. The left hip BMD is 0.711 with a t-score of -1.2. The lumbar spine BMD is 1.126 with a t-score of 0.7. IMPRESSION: Osteopenia with moderate fracture risk. Treatment advised. Suggest follow-up exam in 2 years Dictated b Mateo Holt MD 11/19/2019 18:34 Mateo Holt MD in [facility] 11/19/2019 18:34
== END ==
PROVIDERS: PCP Internal Medicine Adolescent Medicine; Visit Provider Nurse Practitioner Family
DX: Z12.31 Encounter for screening mammogram for malignant neoplasm of breast (principal); M85.89 Other specified disorders of bone density and structure, multiple sites; I10 Essential (primary) hypertension
CPT/HCPCS: 76536; 77063; 77067; 77080

== ENCOUNTER → 2019-11-26 13:39 | Outpatient (POV) | payer MEDICARE, SELFPAY ==
[2019-11-26 13:52] VITALS: BP 138/88; PULSE 72; RESP 18; TEMP 36.6; O2SAT 98; BMI 39.0
--- NOTE | 2019-11-26 15:13 | HMH.PAINSOAP ---
[facility] Pain Management SOAP Note Subjective:: Patient is a pleasant 69-year-old white female who presents today for follow-up after bilateral sacroiliac joint injections. She has been treated for bilateral SI joint pain as well as bilateral hip pain. The patient's pain is worse with standing and walking and improves with sitting. Patient says that she did get up to 80% relief after the injections. She has had these injections on multiple occasions and gets relief for up to a month, however, it not relieve all of the pain and her pain does return. She rates her pain a 5 out of 10 today. She has discussed with Dr. SASHA Garza in the past possible SI stabilization procedure. Patient would like to discuss the procedure today and proceed with the procedure on the right side. Her pain is worse on the right side at this time. She does have pain on the left side as well. She did try physical therapy along with a continued home stretching program. She is also had injections with some relief. She has tried anti-inflammatories. Review of Systems General: No recent weight changes, no fever, no sleep disturbances Respiratory: No cough, no shortness of air, no recurring pulmonary infections Cardiovascular/peripheral vascular: No chest pain, no palpitations, no edema, no shortness of breath Gastrointestinal: No new onset incontinence, normal bowel movements reported Genitourinary: No new onset incontinence Musculoskeletal: Low back pain, bilateral hip pain Psychiatric: Normal mood/affect Neurological: [Denies weakness in extremities], [denies balance issues] Objective:: Physical exam General: Alert and oriented x3, no acute distress, pleasant and cooperative, [on room air] Lungs: Respirations even and unlabored, symmetrical chest expansion Eyes: PERRL Musculoskeletal: Flexion and extension of lumbar spine somewhat guarded secondary to pain, deep tendon reflexes normal, strength in upper and lower extremities [5/5], [abnormal gait noted], positive Darnell's test, positive SI compression test, positive distraction test Neurological: Speech clear, new business clerk equal, no gross sensory deficit Assessment:: Chronic bilateral sacroiliitis Plan:: Patient has undergone multiple injections and is gotten relief, but it is temporary. At this point, she would like to proceed with the SI stabilization procedure. She has tried and failed all other conservative therapies. Patient did go for a bone density scan that did show osteopenia. She is on medications for this. She did discuss with her primary care provider the side effects of chronic steroid use. She has decided she would like to proceed with the SI stabilization procedure. She is not on any anticoagulation therapy. We will schedule her for the right side and later proceed with the left side as well. Patient was given educational information and was thoroughly educated today regarding the procedure. She has been encouraged to call the clinic if she has questions concerning the procedure. We will follow-up with her after the SI stabilization procedure to reassess her symptoms. She has been instructed to contact the clinic if she has any concerns before her next appointment. The patient and I specifically discussed risk factors for COVID19. These risks include, but are not limited to age greater than 60, heart or lung disease, diabetes, immunosuppression, and travel. We also discussed NSAIDs may worsen COVID19 infection or symptoms. Patient should not use NSAIDs to treat COVID19 signs or symptoms. Patient was also informed that any type of corticosteroid of any form (oral or injection) will decrease the patient's immune system response and may increase the likelihood of COVID19 infection and symptoms[address]. Velez has reviewed this note and agrees with this plan of care. This note was dictated using voice recognition software and make contain errors or omissions. [facility] History I have reviewed the patient's p
== END ==
PROVIDERS: PCP Internal Medicine Adolescent Medicine; Visit Provider Clinical Nurse Specialist Family Health
DX: M46.1 Sacroiliitis, not elsewhere classified (principal); G89.29 Other chronic pain
CPT/HCPCS: 99212

== ENCOUNTER → 2020-01-10 13:21 | Outpatient (CLI) | payer SELFPAY | PROVIDERS: PCP Internal Medicine Adolescent Medicine; Visit Provider Physician Assistant | DX: Z02.4 Encounter for examination for driving license (principal) ==

== ENCOUNTER 2020-01-22 12:04 | Emergency (ER) | payer MEDICARE, SELFPAY ==
--- NOTE | 2020-01-22 12:18 | HMH.EDGENADL ---
ED Disposition Clinical Impression: Vertigo Disposition: Home, Self-Care Condition on Discharge: Fair Instructions: DI for Vertigo Additional Instructions: Antivert and diazepam for dizziness. Zofran for nausea. Ambulate carefully and with assistance. Return to the emergency department if worsening dizziness, vomiting, new symptoms such as visual changes or numbness or weakness of arms or legs or difficulty speaking. Follow-up with your primary care doctor next week. Additional instructions for CONTROLLED SUBSTANCES: You have been prescribed a medication that is a controlled substance. Controlled substances include pain medications known as opiates and sedative nerve medications known as benzodiazepines. Tramadol, fioricet, and gabapentin are also controlled substances. Some common opiates include: Codeine (such as Tylenol #3) Hydrocodone (Vicodin, Lortab, Lorcet, [place]) Oxycodone (Percocet, Percodan, Oxycodone, Oxy IR) Some common benzodiazepines include: Diazepam (Valium) Lorazepam (Ativan) Alprazolam (Xanax) Clonazepam (Klonopin) Oxazepam (Serax) All of these controlled substances are highly addictive and frequently abused. Misuse can and frequently does lead to addiction as well as overdose and . Medication should be stored in a locked cabinet or other secure storage unit. Do not store the medication in a motor vehicle. Short term supplies, 3 days or less, are prescribed because of the highly addictive nature of the medication. Any of the controlled substance medication NOT taken should be disposed of properly and NOT SAVED. The recommended method of disposing of unused medications is: Place the medicines in a sealable plastic bag. If the medicine is a solid, crush it or add water to dissolve it. Add something undesirable (cat litter, coffee grounds, etc.) Dispose of sealed bag in household trash Do not flush or pour unused medicines down a sink or drain. Controlled substances should not be shared, given away or sold. Because of the addictive nature and frequent abuse, these medications are sometimes stolen. These medications should be kept in a safe place where they cannot be stolen. Do not keep them in your car or purse. Lost or stolen prescriptions for controlled substances WILL NOT BE REFILLED in this emergency department, regardless of whether a police report was filed. Prescriptions: Meclizine HCl [Antivert 25mg tablet] 25 mg PO TIDP PRN #15 tab PRN Reason: Vertigo Transmission Status: Received by [facility] # diazePAM [Diazepam 2mg tablets] 2 mg PO TIDP PRN #10 tab PRN Reason: Vertigo Transmission Status: Received by [facility] # Ondansetron [Zofran 4mg ODT] 4 mg PO TIDP PRN #10 tab.rapdis PRN Reason: Nausea And Vomiting Transmission Status: Received by [facility] # Referrals: Hussain Tenorio MD [Primary Care Provider] - - Critical Care Critical Care Time: No Attestation: On 01/22/20, the high probability of a clinically significant, sudden or life threatening deterioration of the following system(s) required my full and direct attention, intervention and personal management. The time I documented below is in addition to time spent performing reported procedures but includes the following listed in this critical care notation. Medical Decision Making - Medical Records Medical records reviewed: Yes: I reviewed the patient's medical records. - Vern Inquiry Pt receiving controlled substance: Yes (Diazepam for vertigo) Vern was queried for this patient: No Reason not queried -: Emergent pt cond-no time Risks and benefits of using a controlled substance: were discussed with pt by me Vital Signs: 01/22/20 12:20 Temperature 97 F L Temperature Source Oral Pulse Rate [Right Radial] 79 Respiratory Rate 15 Blood Pressure [Right Arm] 189/98 H Blood Pressure Mean [Right Arm] 128 02 Sat by Pulse Oximetry 95
[2020-01-22 12:20] VITALS: BP 189/98; PULSE 79; RESP 15; TEMP 36.1; O2SAT 95; BMI 34.3
--- NOTE | 2020-01-22 12:22 | XR_ITS ---
PROCEDURE: XR CHEST 2V CLINICAL HISTORY: dizzy COMPARISON: CR CXR2 CHEST-AP VIEW ONLY from 03/24/2014 FINDINGS: There is mild cardiomegaly without failure. There are minimal atelectatic changes in the left lung base. There is a 1 cm nodule in the left upper lobe. This may represent a granuloma with some increased density in the central aspect of the nodule. No acute bony findings. IMPRESSION: Mild left basilar atelectasis. Left upper lobe nodule which may be due to a granuloma. Dictated by: Mateo Holt MD 01/22/2020 13:32 Mateo Holt MD in [place] 01/22/2020 13:32
--- NOTE | 2020-01-22 12:23 | CT_ITS ---
PROCEDURE: CT HEAD/BRAIN WO CON CLINICAL INDICATION: dizzy Dizziness with vomiting COMPARISON: CT HDWO CT HEAD W/O CONTRAST from 03/24/2014 TECHNIQUE: Axial images obtained. All CT scans at the facility use one or more dose reduction, viz: automated exposure control, ma/kV adjustment per patient size (including targeted exams where dose is matched to indication, i.e. head), or iterative reconstruction technique. FINDINGS: No midline shift, mass effect, intracranial hemorrhage, hydrocephalus, or extra-axial fluid collection is evident. The calvarium has an unremarkable appearance. No mastoid effusion. No sinus air-fluid level. IMPRESSION: No acute intracranial finding Dictated by: Mateo Holt MD 01/22/2020 13:28 Mateo Holt MD in [facility] 01/22/2020 13:28
--- NOTE | 2020-01-22 12:46 | ECG_ITS ---
APPROVED REPORT Exam: Resting ECG HR:63 bpm ECG Measurements Heart Rate 63 AXES ME 156 P 47 QRSd 88 QRS -15 QT 450 T 17 QTc 460 Conclusion Normal sinus rhythm Left atrial abnormality Borderline ECG Electronically signed by : Hussain Tenorio, 01/22/2020 19:11:48
[2020-01-22 12:49] LABS: Microscopic, Urine URINE MICROSCOPIC (MICROSCOPIC)
[2020-01-22 12:50] LABS: Basophils # 0.1 K/mm3 (0-0.2); Basophils % 0.6 % (0.1-2.0); Eosinophils # 0.3 K/mm3 (0.0-0.4); Eosinophils % 3.5 % (0.1-12.0); Hematocrit 45.9 % (37.0-47.0); Hemoglobin 15.1 g/dL (12.2-16.2); Lymphocytes # 2.4 K/mm3 (0.7-4.5); Lymphocytes % 25.8 % (10-50); Mean Corpuscular HGB Conc 32.8 g/dL (31.8-35.4); Mean Corpuscular Hemoglobin 29.5 pg (27.0-31.2); Mean Corpuscular Volume 90.1 fl (81-99); Monocytes # 0.4 K/mm3 (0.1-1.0); Neutrophils # 6.2 K/mm3 (1.8-7.8); Neutrophils % 66.1 % (37.0-80.0); Platelet Count 253 K/mm3 (142-424); Red Cell Distribution Width 13.3 % (11.5-17.5); White Blood Count 9.4 K/mm3 (4.8-10.8)
[2020-01-22 12:52] LABS: Appearance,Urine CLEAR (Clear); Blood, Urine Negative (Negative); Color,Urine YELLOW (Yellow); Glucose,Urine (UA) Negative (Negative); Ketones,Urine Negative (Negative); Leukocyte Esterase,Urine TRACE (Negative); Nitrate,Urine Negative (Negative); Protein,Urine Negative (Negative); Urobilinogen,Urine 0.2 EU/dl (0.2)
[2020-01-22 12:54] LABS: Chloride 103 mmol/L (98-107); Potassium 3.2 mmoL/L (3.5-5.1); Sodium 141 mmol/L (136-145)
[2020-01-22 12:56] LABS: Blood Urea Nitrogen 27 mg/dl (7-17); Creatinine Clearance Estimated 75 mL/min (50-200); Estimated Glomerular Filt Rate 62 ml/min (>60); GFR (African American) 75 ML/MIN (>60)
[2020-01-22 12:57] LABS: Bilirubin,Urine 3+ (Negative)
[2020-01-22 12:57] LABS: Alanine Aminotransferase 35 U/L (12-78); Albumin Level 4.7 g/dl (3.5-5.0); Albumin/Globulin Ratio 1.5 (1.1-1.8); Alkaline Phosphatase 95 U/L (38-126); Anion Gap 13.2 mEq/L (5-15); Aspartate Amino Transferase 37 U/L (14-36); Bilirubin,Total 0.6 mg/dl (0.2-1.3); Carbon Dioxide 28 mmol/L (22.0-30.0); Globulin 3.2 g/dL (1.3-3.2); Glucose 138 mg/dl (74-100); Total Protein,Serum 7.9 g/dl (6.3-8.2)
[2020-01-22 12:59] LABS: WBC,Urine Occasional #/hpf (0-3)
[2020-01-22 13:10] LABS: Troponin I < 0.01 ng/ml (0.00-0.034)
--- NOTE | 2020-01-22 13:45 | PC.NURSE ---
attempted to ambulate pt. pt stood up side of bed with assist. pt very unsteady pt back to bed with assist. notified
[2020-01-22 15:03] VITALS: BP 135/74; PULSE 78; RESP 16; TEMP 36.6; O2SAT 98
== END 2020-01-22 15:04 | disposition home or self-care (01) ==
LOC: UTC 12:07 → ER 12:08
PROVIDERS: Emergency Medicine; Emergency Provider Nurse Practitioner Family; PCP Internal Medicine Adolescent Medicine
DX: R42 Dizziness and giddiness (principal); K21.9 Gastro-esophageal reflux disease without esophagitis; I10 Essential (primary) hypertension; E78.5 Hyperlipidemia, unspecified; Z90.09 Acquired absence of other part of head and neck; Z90.710 Acquired absence of both cervix and uterus; Z79.899 Other long term (current) drug therapy
CPT/HCPCS: 70450; 71046; 80053; 81001; 84484; 85025; 93005; 96365; 96375; 99283; J2405

== ENCOUNTER → 2020-02-15 09:27 | Outpatient (POV) | payer MEDICARE, SELFPAY ==
--- NOTE | 2020-02-15 09:51 | P.CONS_ITS ---
[facility] Pain Management SOAP Note Subjective:: Patient is a pleasant 69-year-old white female who presents today for follow-up. Patient had a SI joint fusion denied by her insurance. At this time patient is getting ready to travel down to [place]. Patient would like to have SI joint injections and knee injections prior to going down to [place]. She rates her pain today a 1 out of 10. She has a positive Laura test Darnell's test distraction test and SI joint compression test bilaterally. She has decreased range of motion left knee. Patient gets 80% relief with her injections up to 3 months. We will move forward with this. ROS General: no recent weight change, no fever, no sleep disturbances Respiratory: no cough, no shortness of air, no recurring pulmonary infections Cardiovascular/Peripheral Vascular: No chest pain, No palpitations, no edema, no shortness of breath. Gastrointestinal: no new onset incontinence, normal bowel movements reported Genitourinary: no new onset incontinence Musculoskeletal: Back pain, leg pain, knee pain, SI joint pain Psychiatric: normal mood/ affect Neurological: [denies new onset weakness in extremities], [denies new onset balance issues] Objective:: Physical Exam General: Alert and oriented x3, no acute distress, pleasant and cooperative, [on room air] Lungs: Resps E/U, Symmetrical chest expansion, Eyes: PERRL Musculoskeletal: Flexion and extension of lumbar spine somewhat guarded secondary to pain, deep tendon reflexes normal, strength in upper and lower extremities [5/5], [abnormal gait noted] Neurological: speech clear, news writer equal, no gross sensory deficits Assessment:: Sacroiliitis, chronic knee pain on the left side Plan:: We will plan a bilateral SI joint injection for the patient at the end of February we will wait several weeks and then do her left knee injection. I will follow-up with her after her injections reassess her symptoms at that time. She has been instructed to call the office if she has any issues prior to her next appointment. Dr. Velez has reviewed this note and agrees with this plan of care. This note was dictated using voice recognition software and may contain errors or omissions [facility] History I have reviewed the patient's past medical history: Yes Medical History: Reports:: Gastroesophageal Reflux Disease(GERD), Hyperlipidemia, Hypertension Denies:: Cancer, Diabetes Mellitus Type 1, Diabetes Mellitus Type 2, Internal Pacemaker, Lung Disease, MRSA, Seizures *Have you ever received a pneumonia vaccine?: No *Have you received a flu vaccine this season?: No Other Medical History: Reports: Blood Transfusion Reaction, Other Laterality Cases: Bilateral: Tonsillectomy Other Surgeries: Yes: Cardiac Catheterization, Hysterectomy-Total, Other. No: Pacemaker Amputation: No Fractures: No - *Social History Smoking Status: Never smoker Alcohol Intake: current Alcohol Intake Frequency:: a few times a month *Occupational Status:: employed Housing: house Household Members: significant other *Travel in the last 8 weeks: None Family Hx:: Coronary Artery Disease, Diabetes
[2020-02-15 11:29] VITALS: BP 133/88; PULSE 74; RESP 18; O2SAT 98; BMI 39.0
== END ==
PROVIDERS: PCP Internal Medicine Adolescent Medicine; Visit Provider Clinical Nurse Specialist Family Health
DX: M46.1 Sacroiliitis, not elsewhere classified (principal); M25.562 Pain in left knee; G89.29 Other chronic pain
CPT/HCPCS: 99212

== ENCOUNTER 2020-03-04 10:34 | Day surgery (SDC) | payer MEDICARE, SELFPAY ==
[2020-03-04 10:39] VITALS: BP 118/62; PULSE 76; RESP 18; TEMP 36.4; O2SAT 100; BMI 39.0
[2020-03-04 11:01] VITALS: BP 122/85; PULSE 89; RESP 18; O2SAT 99
[2020-03-04 11:03] VITALS: BP 123/78; PULSE 88; RESP 18; O2SAT 98
--- NOTE | 2020-03-04 11:07 | HMH.PMPROC ---
- Procedure Date: 03/04/20 Time: 11:07 Anesthesiologist:: French Velez MD Complications:: None Pre-procedure Diagnosis:: Chronic left knee pain with degenerative osteoarthritis Post-procedure Diagnosis:: Same Indications for Procedure:: This patient is a pleasant 69-year-old white female who we have been treating for left knee pain and bilateral hip pain. She has been receiving SI joint injections as well as left knee intra-articular injections. She is leaving for [place] in March. Her pain is starting to return in her left knee. We will do a repeat left knee intra-articular injection today. Procedure Details:: Left knee intra-articular injection Informed consent was obtained the risk and benefits of the procedure were explained to the patient. Patient was taken the procedure room. The knee was prepped using ChloraPrep. 25-gauge needle was used first medially then laterally to inject 10 mL bupivacaine 0.25% and Depo-Medrol 40 mg into the left knee joint. The patient tolerated the procedure well with no complications. Plan and Disposition:: We will follow-up with her in 2 weeks. Will reevaluate her symptoms at that time. We will do a repeat injection if needed before she leaves on her trip.
[2020-03-04 11:17] VITALS: BP 120/70; PULSE 69; RESP 20; O2SAT 100
== END 2020-03-04 11:18 | disposition home or self-care (01) ==
LOC: SC.PAINP 10:36
PROVIDERS: PCP Internal Medicine Adolescent Medicine; Visit Provider Anesthesiology
DX: M17.12 Unilateral primary osteoarthritis, left knee (principal); I10 Essential (primary) hypertension; K21.9 Gastro-esophageal reflux disease without esophagitis; F41.9 Anxiety disorder, unspecified
CPT/HCPCS: 20610; J1040

== ENCOUNTER 2020-03-14 14:57 | Day surgery (SDC) | payer MEDICARE, SELFPAY ==
[2020-03-14 15:05] VITALS: BP 174/78; PULSE 78; RESP 18; TEMP 36.6; O2SAT 98; BMI 39.0
--- NOTE | 2020-03-14 15:21 | P.PCN_ITS ---
- Procedure Date: 03/14/20 Time: 15:32 Anesthesiologist:: Shweta Avitia APRN Complications:: None Pre-procedure Diagnosis:: Sacroiliitis Post-procedure Diagnosis:: Same Indications for Procedure:: Patient is a pleasant 69-year-old white female who presents today for bilateral SI joint injections. Patient gets a good relief with her SI joint injections she is planning on going to [place]. Patient's recently had an injection in her knees she presents today for an SI joint injection she gets relief up to 3 months with these injections. Physical Exam General: Alert and oriented x3, no acute distress, pleasant and cooperative, [on room air] Lungs: Resps E/U, Symmetrical chest expansion, Eyes: PERRL Musculoskeletal: Flexion and extension of lumbar spine somewhat guarded secondary to pain, deep tendon reflexes normal, strength in upper and lower extremities [5/5], [abnormal gait noted] positive Laura test Darnell's test SI joint compression test bilaterally Neurological: speech clear, quality technician fiberglass equal, no gross sensory deficits Procedure Details:: Informed consent was obtained and the risks and benefits of the procedure were explained to the patient. Patient was taken to the procedure room. Patient was placed prone on the procedure table. The [right] hip was prepped using ChloraPrep as a cleansing solution. The skin and subcutaneous tissues were anesthetized using lidocaine. Using fluoroscopic guidance I placed a 22-gauge spinal needle into the inferior aspect of the [right] SI joint. After this I injected 5 mL bupivacaine 0.25% and Depo-Medrol 40 mg into the [right] SI joint. It was then repeated on the left side. The patient tolerated the procedure well with no complication. Plan and Disposition:: We will follow up with the patient several weeks reassess her symptoms at that time she has been instructed to call the office if she has any issues prior to her next appointment. Dr. Velez has reviewed this note and agrees with this plan of care. This note was dictated using voice recognition software and may contain errors or omissions
[2020-03-14 15:26] VITALS: BP 132/85; PULSE 84; RESP 18; TEMP 36.8; O2SAT 98
[2020-03-14 15:27] VITALS: BP 133/85; PULSE 85; RESP 18; O2SAT 98
[2020-03-14 15:36] VITALS: BP 166/71; PULSE 70; RESP 20; O2SAT 98
== END 2020-03-14 15:37 | disposition home or self-care (01) ==
LOC: SC.PAINP 14:59
PROVIDERS: PCP Internal Medicine Adolescent Medicine; Visit Provider Clinical Nurse Specialist Family Health
DX: M46.1 Sacroiliitis, not elsewhere classified (principal); I10 Essential (primary) hypertension; K21.9 Gastro-esophageal reflux disease without esophagitis; M19.90 Unspecified osteoarthritis, unspecified site; B15.9 Hepatitis A without hepatic coma; Z79.899 Other long term (current) drug therapy
CPT/HCPCS: 27096; G0260; J1030; Q9966

== ENCOUNTER → 2020-03-28 10:25 | Outpatient (POV) | payer MEDICARE, SELFPAY ==
--- NOTE | 2020-03-28 10:47 | HMH.PAINSOAP ---
[facility] Pain Management SOAP Note Subjective:: Patient is a Pleasant 70-year-old white female who presents today for follow-up after bilateral SI joint injections. Patient got good relief up to 80%. She rates her pain today a 3 out of 10. She is interested in a corner lock procedure however she will be traveling for the next 3 months. Patient and I discussed giving her some prednisone in case she needs it wet during her travels. ROS General: no recent weight change, no fever, no sleep disturbances Respiratory: no cough, no shortness of air, no recurring pulmonary infections Cardiovascular/Peripheral Vascular: No chest pain, No palpitations, no edema, no shortness of breath. Gastrointestinal: no new onset incontinence, normal bowel movements reported Genitourinary: no new onset incontinence Musculoskeletal: [SI joint pain Psychiatric: normal mood/ affect Neurological: [denies new onset weakness in extremities], [denies new onset balance issues] Objective:: Physical Exam General: Alert and oriented x3, no acute distress, pleasant and cooperative, [on room air] Lungs: Resps E/U, Symmetrical chest expansion, Eyes: PERRL Musculoskeletal: Flexion and extension of lumbar spine somewhat guarded secondary to pain, deep tendon reflexes normal, strength in upper and lower extremities [5/5], [abnormal gait noted] positive Laura test SI joint compression test Darnell's test and distraction test bilaterally Neurological: speech clear, charging plug placer equal, no gross sensory deficits Assessment:: Sacroiliitis Plan:: We will see the patient back in 3 months we will give her 20 mg of prednisone 1 p.o. twice daily for 5 days in case of a flare. Patient's been instructed to call the office if she has any issues. Dr. Velez has reviewed this note and agrees with this plan of care. This note was dictated using voice recognition software and may contain errors or omissions [facility] History I have reviewed the patient's past medical history: Yes Medical History: Reports:: Gastroesophageal Reflux Disease(GERD), Hyperlipidemia, Hypertension Denies:: Cancer, Diabetes Mellitus Type 1, Diabetes Mellitus Type 2, Internal Pacemaker, Lung Disease, MRSA, Seizures *Have you ever received a pneumonia vaccine?: Yes *Have you received a flu vaccine this season?: Yes Other Medical History: Reports: Arthritis, Blood Transfusion Reaction, Thyroid Disease (watching), Other Laterality Cases: Bilateral: Tonsillectomy Other Surgeries: Yes: Cardiac Catheterization, Hysterectomy-Total, Other. No: Pacemaker Amputation: No Fractures: No - *Social History Smoking Status: Never smoker Alcohol Intake: never Alcohol Intake Frequency:: a few times a month *Occupational Status:: retired Housing: house Household Members: significant other *Travel in the last 8 weeks: None Family Hx:: Coronary Artery Disease, Diabetes
[2020-03-28 11:02] VITALS: BP 128/78; PULSE 77; RESP 18; TEMP 36.6; O2SAT 98; BMI 39.0
== END ==
PROVIDERS: PCP Internal Medicine Adolescent Medicine; Visit Provider Clinical Nurse Specialist Family Health
DX: M46.1 Sacroiliitis, not elsewhere classified (principal)
CPT/HCPCS: 99212

== ENCOUNTER → 2020-07-14 09:41 | Outpatient (POV) | payer MEDICARE, SELFPAY ==
--- NOTE | 2020-07-14 10:29 | HMH.PAINSOAP ---
[facility] Pain Management SOAP Note Subjective:: Patient is a pleasant 70-year-old white female presents today for follow-up. Patient had bilateral SI joint injections several times with good relief up to 80%. Would like to move forward with a corner lock SI joint stabilization. Patient would like to start on her right side. She states that this is the worst pain. Patient has a positive Laura test Darnell's test SI joint compression test and distraction test on the right side. She is gotten over 80% relief with SI joint diagnostic injections. We will move forward with scheduling her. ROS General: no recent weight change, no fever, no sleep disturbances Respiratory: no cough, no shortness of air, no recurring pulmonary infections Cardiovascular/Peripheral Vascular: No chest pain, No palpitations, no edema, no shortness of breath. Gastrointestinal: no new onset incontinence, normal bowel movements reported Genitourinary: no new onset incontinence Musculoskeletal: SI joint pain Psychiatric: normal mood/ affect Neurological: [denies new onset weakness in extremities], [denies new onset balance issues] Objective:: Physical Exam General: Alert and oriented x3, no acute distress, pleasant and cooperative, [on room air] Lungs: Resps E/U, Symmetrical chest expansion, Eyes: PERRL Musculoskeletal: Flexion and extension of lumbar spine somewhat guarded secondary to pain, deep tendon reflexes normal, strength in upper and lower extremities [5/5], [abnormal gait noted] Neurological: speech clear, steam finisher equal, no gross sensory deficits Assessment:: Sacroiliitis Plan:: We will order a IFC device from [employer] no substitutions. I do believe that this would benefit her pain. We will also set her up for a right SI joint stabilization. I will follow-up with her after this reassess her symptoms at that time she has been instructed to call the office if she has any issues prior to her next appointment. Dr. Velez has reviewed this note and agrees with this plan of care. This note was dictated using voice recognition software and may contain errors or omissions [facility] History I have reviewed the patient's past medical history: Yes Medical History: Reports:: Gastroesophageal Reflux Disease(GERD), Hyperlipidemia, Hypertension Denies:: Cancer, Diabetes Mellitus Type 1, Diabetes Mellitus Type 2, Internal Pacemaker, Lung Disease, MRSA, Seizures *Have you ever received a pneumonia vaccine?: Yes *Have you received a flu vaccine this season?: Yes Other Medical History: Reports: Arthritis, Blood Transfusion Reaction, Thyroid Disease (watching), Other Laterality Cases: Bilateral: Tonsillectomy Other Surgeries: Yes: Cardiac Catheterization, Hysterectomy-Total, Other. No: Pacemaker Amputation: No Fractures: No - *Social History Smoking Status: Never smoker Alcohol Intake: never Alcohol Intake Frequency:: a few times a month *Occupational Status:: other Housing: house Household Members: significant other *Travel in the last 8 weeks: None Family Hx:: Coronary Artery Disease, Diabetes
[2020-07-14 10:47] VITALS: BP 175/58; PULSE 65; RESP 18; O2SAT 98; BMI 37.8
== END ==
PROVIDERS: PCP Internal Medicine Adolescent Medicine; Visit Provider Clinical Nurse Specialist Family Health
DX: M46.1 Sacroiliitis, not elsewhere classified (principal)
CPT/HCPCS: 99212; G0463

== ENCOUNTER → 2020-07-26 10:14 | Outpatient (CLI) | payer MEDICARE, SELFPAY ==
[2020-07-26 10:55] LABS: Basophils % 0.6 % (0.1-2.0); Eosinophils # 0.4 K/mm3 (0.0-0.4); Eosinophils % 5.5 % (0.1-12.0); Hematocrit 42.6 % (37.0-47.0); Hemoglobin 14.2 g/dL (12.2-16.2); Lymphocytes # 1.6 K/mm3 (0.7-4.5); Lymphocytes % 24.3 % (10-50); Mean Corpuscular HGB Conc 33.2 g/dL (31.8-35.4); Mean Corpuscular Hemoglobin 29.9 pg (27.0-31.2); Mean Corpuscular Volume 89.9 fl (81-99); Mean Platelet Volume 8.4 fl (7.4-10.4); Monocytes # 0.2 K/mm3 (0.1-1.0); Monocytes % 3.7 % (1.7-9.3); Neutrophils # 4.3 K/mm3 (1.8-7.8); Neutrophils % 65.9 % (37.0-80.0); Platelet Count 197 K/mm3 (142-424); Red Blood Count 4.73 M/mm3 (4.20-5.40); Red Cell Distribution Width 13.3 % (11.5-17.5); White Blood Count 6.6 K/mm3 (4.8-10.8)
[2020-07-26 11:04] LABS: Chloride 104 mmol/L (98-107); Potassium 3.7 mmoL/L (3.5-5.1); Sodium 140 mmol/L (136-145)
[2020-07-26 11:07] LABS: Anion Gap 13.7 mEq/L (5-15); Blood Urea Nitrogen 29 mg/dl (7-17); Calcium 9.7 mg/dl (8.4-10.2); Carbon Dioxide 26 mmol/L (22.0-30.0); Estimated Glomerular Filt Rate 71 ml/min (>60); GFR (African American) 86 ML/MIN (>60); Glucose 134 mg/dl (74-100)
[2020-07-26 11:46] LABS: Coronavirus 19 IgG Antibody Positive (Negative); Coronavirus 19 IgM Antibody Negative (Negative)
== END ==
PROVIDERS: Visit Provider Anesthesiology
DX: Z01.812 Encounter for preprocedural laboratory examination (principal); Z20.822 Contact with and (suspected) exposure to COVID-19; M53.3 Sacrococcygeal disorders, not elsewhere classified
CPT/HCPCS: 36415; 80048; 85025; 86328

== ENCOUNTER 2020-07-27 07:27 | Day surgery (SDC) | payer MEDICARE, SELFPAY ==
[2020-07-25 14:03] VITALS: BMI 39.0
[2020-07-27] VITALS (11 sets, daily range): BP systolic 121–148; BP diastolic 60–76; PULSE 60–91; RESP 12–19; TEMP 36.2–36.6; O2SAT 92–99
--- NOTE | 2020-07-27 10:30 | P.OP_ITS ---
Date of procedure: 07/27/20 Pre-op Diagnosis:: Sacroiliitis Post-op Diagnosis:: Same Procedure performed:: Right SI joint stabilization Surgeon:: French Velez MD FIELD RECORDER:: Other Anesthesia: GETA Estimated blood loss (mL): 25 Clinical Note:: He 1-year-old white female who we have been treating for chronic sacroiliitis bilaterally. With injections she gets up to 80% relief of her symptoms for several weeks. Right side is worse than left. We will do a right SI joint stabilization with [place] to help her with long-term relief of her SI joint pain. Operative findings:: None Operative note:: Informed consent was obtained and the risk and benefits of the procedure was explained to the patient. Patient was taken to the operating room placed prone on the procedure table. Patient was prepped and draped in sterile fashion. A lateral view of the sacrum with C-arm was taken to make sure it was out of anteversion. We then did an oblique view of the right sacroiliac joint. We lined up the anterior and posterior sides of the joint to achieve a [place] . A line was drawn on the skin with the SI joint. The superior and inferior aspect of the joint were anesthetized using lidocaine. The superior and inferior aspect of the joint were marked off. 1 cm medial and 1 cm superiorly into the upper quadrant and 1 cm medial and 1 cm distal a 1 1/2 cm longitudinal incisions were made through the skin and subcutaneous tissues. Guidepins were then placed superior and inferior at a 90 degree angle to each other under C-arm guidance through the incision was made into the superior third and inferior third of the SI joint. Lateral C-arm view was then taken to check the depth of the pins into the SI joint. On the lateral view the joint finder was placed over the guidepin into the appropriate position. The working cannula retractor was then placed over the joint finder into the SI joint into the appropriate position and depth. The joint finder and guidepin were removed. The SI joint was drilled to remove cartilage and to get into the subchondral bone of the sacrum and ilium. The broach was then used to prepare a triangular groove into both the sacrum and ilium for insertion of stabilization grafts. A collagen spine was then placed into the prepared space and the stabilization graft was placed. This was done both superiorly inferiorly into the SI joint. The cannulated retractor was removed. The incisions were then closed with 2-0 Vicryl followed by 4-0 nylon and kaushik. Dressings were placed and the patient was taken recovery in stable condition. Patient tolerated the procedure well with no complications. Patient was discharged home neurologically intact and with some good relief of her pain symptoms except for some incisional pain. We did give her [place] 5 mg 1 tablet every 4 to 6 hours. I will give her 20 tablets. We will also place her on Bactrim DS 1 tablet twice daily for post procedure antibiotics. Condition: stable Disposition: PACU Complications:: None
--- NOTE | 2020-07-27 13:55 | HMH.ANESCL ---
[facility] Anesthesia Checklist - Patient Identification Patient Identification: Arm Band - Structural Data Admitted From: Home Planned Operative Procedure/s: Sacroiliac joint fusion Consent for Planned Operative Procedure(s) Verified: Yes Verified Documents: Surgical Consent - NPO Status Verified Time NPO: 00:00 - Additional verifications Anesthesia Reactions: No Hx Blood Transfusions: No Blood Transfusion Reaction: Yes - Airway Assessment C-Spine Mobility Assessed: Yes TMJ Mobility Assessed: Yes Dentition: Partials - Neurological Assessment Level of Consciousness: Awake, Alert - Anesthesia Plan Anesthesia Risk discussed: Yes Anesthesia Plan: Verified ASA Class: II Anesthesia Type: General [facility] History Medical History: Reports:: Gastroesophageal Reflux Disease(GERD), Hyperlipidemia, Hypertension Denies:: Cancer, Diabetes Mellitus Type 1, Diabetes Mellitus Type 2, Internal Pacemaker, Lung Disease, MRSA, Seizures *Have you ever received a pneumonia vaccine?: Yes *Have you received a flu vaccine this season?: Yes Other Medical History: Reports: Arthritis, Blood Transfusion Reaction, Thyroid Disease (watching), Other Anesthesia experience/problems:: None Laterality Cases: Bilateral: Tonsillectomy Other Surgeries: Yes: Cardiac Catheterization, Hysterectomy-Total, Other. No: Pacemaker Amputation: No Fractures: No - *Social History Last grade of school completed: High school graduate Smoking Status: Never smoker Alcohol Intake: current Alcohol Intake Frequency:: a few times a month Substance Use Type: denies use *Occupational Status:: retired Housing: house Household Members: significant other *Travel in the last 8 weeks: Inside the [facility] Family Hx:: Diabetes, Heart Attack, Hypertension
--- NOTE | 2020-07-27 14:01 | P.PN_ITS ---
[facility] Anesthesia Record Part I Intake, IV Amount: 700 Estimated blood loss (mL): 1 Urine output (mL): 0 Blood Products used (#): none Blood Pressure: 133/72 SaO2: 92 Pulse Rate: 91 Respiratory Rate: 12 Temperature: 97.8 F Patient is:: Drowsy, Stable
[2020-07-29 14:23] VITALS: BP 125/60; PULSE 67; TEMP 36.6
--- NOTE | 2020-07-29 14:23 | HMH.ANESII ---
[facility] Anesthesia Record Part II Discharge Time: 11:00 Destination: Surgical Day Care (OP Surgery) PACU nurse assessment reviewed?: Yes Patient Condition:: Good Anesthesia Complications:: None Swallowing reflex intact?: Yes Cyanosis?: No Blood Pressure: 125/60 Pulse Rate: 67 Temperature: 97.9 F Mental Status: Alert & Oriented Pain level:: 0 Nausea and/or vomitting:: None Intake, IV Amount: 0
== END 2020-07-27 12:41 | disposition home or self-care (01) ==
LOC: OR 07:28
PROVIDERS: PCP Internal Medicine Adolescent Medicine; Visit Provider Anesthesiology
PROC: (CPT 27280; principal; 2020-07-27 09:00)
DX: M46.1 Sacroiliitis, not elsewhere classified (principal); K21.9 Gastro-esophageal reflux disease without esophagitis; E78.5 Hyperlipidemia, unspecified; I10 Essential (primary) hypertension; M19.90 Unspecified osteoarthritis, unspecified site; E07.9 Disorder of thyroid, unspecified; Z83.3 Family history of diabetes mellitus; Z82.3 Family history of stroke; Z82.49 Family history of ischemic heart disease and other diseases of the circulatory system; Z79.82 Long term (current) use of aspirin; Z79.899 Other long term (current) drug therapy
CPT/HCPCS: 27280; 96374; C1713; J2405; J2710; J3370

== ENCOUNTER → 2020-08-11 09:03 | Outpatient (CLI) | payer MEDICARE, SELFPAY ==
[2020-08-11 10:09] LABS: Alanine Aminotransferase 26 U/L (12-78); Albumin Level 4.4 g/dl (3.5-5.0); Albumin/Globulin Ratio 1.8 (1.1-1.8); Alkaline Phosphatase 110 U/L (38-126); Anion Gap 13.2 mEq/L (5-15); Aspartate Amino Transferase 31 U/L (14-36); Bilirubin,Total 0.6 mg/dl (0.2-1.3); Blood Urea Nitrogen 23 mg/dl (7-17); Calcium 10.3 mg/dl (8.4-10.2); Carbon Dioxide 27 mmol/L (22.0-30.0); Chloride 103 mmol/L (98-107); Chol/HDL Ratio 4.7 (1-3.5); Cholesterol 229 mg/dl (140-200); Estimated Glomerular Filt Rate 82 ml/min (>60); GFR (African American) 100 ML/MIN (>60); Globulin 2.5 g/dL (1.3-3.2); Glucose 103 mg/dl (74-100); HDL Cholesterol 49 mg/dl (40-60); Potassium 4.2 mmoL/L (3.5-5.1); Sodium 139 mmol/L (136-145); Total Protein,Serum 6.9 g/dl (6.3-8.2); Triglycerides 205 mg/dl (30-150); VLDL Cholesterol 41 mg/dL (0-40)
[2020-08-11 10:15] LABS: 25-OH Vitamin D, Total 50.1 ng/mL (30-100)
[2020-08-11 10:20] LABS: Direct LDL Cholesterol 128.13 mg/dL (100-129)
[2020-08-11 10:40] LABS: Thyroid Stimulating Hormone 1.21 uIU/mL (0.465-4.68)
== END ==
PROVIDERS: Visit Provider Nurse Practitioner Family
DX: I10 Essential (primary) hypertension (principal); E55.9 Vitamin D deficiency, unspecified
CPT/HCPCS: 36415; 80053; 80061; 82306; 84443

== ENCOUNTER → 2020-08-11 13:52 | Outpatient (POV) | payer MEDICARE, SELFPAY ==
[2020-08-11 14:18] VITALS: BP 125/85; PULSE 74; RESP 18; O2SAT 98; BMI 39.0
--- NOTE | 2020-08-11 14:32 | P.CONS_ITS ---
[facility] Pain Management SOAP Note Subjective:: Patient is a pleasant 70-year-old white female who presents today for follow-up after right SI joint stabilization. Patient is doing extremely well. She denies any issues. Patient's pain is a 0 out of 10. Overall patient doing very well. Patient's incisions are well-healed we will remove her kaushik today. ROS General: no recent weight change, no fever, no sleep disturbances Respiratory: no cough, no shortness of air, no recurring pulmonary infections Cardiovascular/Peripheral Vascular: No chest pain, No palpitations, no edema, no shortness of breath. Gastrointestinal: no new onset incontinence, normal bowel movements reported Genitourinary: no new onset incontinence Musculoskeletal: SI joint pain at times Psychiatric: normal mood/ affect Neurological: [denies new onset weakness in extremities], [denies new onset balance issues] Objective:: Physical Exam General: Alert and oriented x3, no acute distress, pleasant and cooperative, [on room air] Lungs: Resps E/U, Symmetrical chest expansion, Eyes: PERRL Musculoskeletal: Flexion and extension of lumbar spine somewhat guarded secondary to pain, deep tendon reflexes normal, strength in upper and lower extremities [5/5], antalgic gait noted Neurological: speech clear, cilnical scientist equal, no gross sensory deficits Assessment:: Sacroiliitis, status post right SI joint stabilization Plan:: We will see the patient back in 1 month reassess her symptoms at that time she has been instructed to call the office if she has any issues prior to her next appointment. Dr. Velez has reviewed this note and agrees with this plan of care. This note was dictated using voice recognition software and may contain errors or omissions [facility] History I have reviewed the patient's past medical history: Yes Medical History: Reports:: Gastroesophageal Reflux Disease(GERD), Hyperlipidemia, Hypertension Denies:: Cancer, Diabetes Mellitus Type 1, Diabetes Mellitus Type 2, Internal Pacemaker, Lung Disease, MRSA, Seizures *Have you ever received a pneumonia vaccine?: Yes *Have you received a flu vaccine this season?: Yes Other Medical History: Reports: Arthritis, Blood Transfusion Reaction, Thyroid Disease (watching), Other Laterality Cases: Bilateral: Tonsillectomy Other Surgeries: Yes: Cardiac Catheterization, Hysterectomy-Total, Other. No: Pacemaker Amputation: No Fractures: No - *Social History Smoking Status: Never smoker Alcohol Intake: current Alcohol Intake Frequency:: a few times a month Substance Use Type: denies use *Occupational Status:: retired Housing: house Household Members: significant other *Travel in the last 8 weeks: None Family Hx:: Diabetes, Heart Attack, Hypertension
== END ==
PROVIDERS: PCP Internal Medicine Adolescent Medicine; Visit Provider Clinical Nurse Specialist Family Health
DX: M46.1 Sacroiliitis, not elsewhere classified (principal); Z98.1 Arthrodesis status; E78.5 Hyperlipidemia, unspecified; Z68.39 Body mass index [BMI] 39.0-39.9, adult
CPT/HCPCS: 36415; 80053; 80061; 82306; 84443; 99212; G0463

== ENCOUNTER → 2020-10-27 08:47 | Outpatient (POV) | payer MEDICARE, SELFPAY ==
[2020-10-27 08:59] VITALS: BP 152/76; PULSE 67; RESP 18; O2SAT 96; BMI 39.0
--- NOTE | 2020-10-27 09:46 | HMH.PAINSOAP ---
[facility] Pain Management SOAP Note Subjective:: Patient is a pleasant 70-year-old white female who presents today for follow-up. The patient is being treated in the clinic for chronic sacroiliitis along with low back pain. The patient did undergo a right SI stabilization procedure. She says that she got excellent relief from the stabilization procedure. She is now having left knee pain. She says she is also having a dull ache in her low back area that is worse with walking. She is unable to lift objects without having pain in her low back. She is also reporting to have pressure in the low back area to bilateral sides. She is having intermittent sharp pain in her left inner knee. She says it is worse with movement. She rates her pain a 7 out of 10. She is undergoing physical therapy once again. She has had physical therapy in the past with no significant relief, however, she is starting physical therapy at this time. She does continue with home stretching. She has tried anti-inflammatories with no significant relief. Patient I did discuss imaging of her lumbar spine. She is having some balance issues to where she feels she is going to fall along with her low back pain. She has not had recent imaging of her lumbar spine. Review of Systems General: No recent weight changes, no fever, no sleep disturbances Respiratory: No cough, no shortness of air, no recurring pulmonary infections Cardiovascular/peripheral vascular: No chest pain, no palpitations, no edema, no shortness of breath Gastrointestinal: No new onset incontinence, normal bowel movements reported Genitourinary: No new onset incontinence Musculoskeletal: Low back pain, left inner knee pain, Psychiatric: Normal mood/affect Neurological: Weakness in lower extremities, balance issues Objective:: Physical exam General: Alert and oriented x3, no acute distress, pleasant and cooperative, [on room air] Lungs: Respirations even and unlabored, symmetrical chest expansion Eyes: PERRL Musculoskeletal: Flexion and extension of [] lumbar spine and left knee somewhat guarded secondary to pain, deep tendon reflexes normal, strength in upper and lower extremities [4/5], [abnormal gait noted] Neurological: Speech clear, meat stuffer equal, no gross sensory deficit Assessment:: Low back pain, left knee pain, lumbar radiculopathy Plan:: Patient is continue with physical therapy. We will schedule her for an MRI of her lumbar spine. She is now having pain into her left knee along with pain in her low back area that is worse with lifting and with standing or walking. She has tried physical therapy in the past with no significant relief, however, we do have the patient back in physical therapy once again. She is continue with home stretching and anti-inflammatories. We will see the patient back after her MRI of her lumbar spine to establish a plan of care. Patient has been instructed to contact the clinic with any concerns before the next appointment. Dr. Velez has reviewed this note and agrees with this plan of care. This note was dictated using voice recognition software and make contain errors or omissions. [facility] History I have reviewed the patient's past medical history: Yes Medical History: Reports:: Gastroesophageal Reflux Disease(GERD), Hyperlipidemia, Hypertension Denies:: Cancer, Diabetes Mellitus Type 1, Diabetes Mellitus Type 2, Internal Pacemaker, Lung Disease, MRSA, Seizures *Have you ever received a pneumonia vaccine?: Yes *Have you received a flu vaccine this season?: Yes Other Medical History: Reports: Arthritis, Blood Transfusion Reaction, Thyroid Disease (watching), Other Laterality Cases: Bilateral: Tonsillectomy Other Surgeries: Yes: Cardiac Catheterization, Hysterectomy-Total, Other. No: Pacemaker Amputation: No Fractures: No - *Social History Smoking Status: Never smoker Alcohol Intake: current Alcohol Intake Frequency:: a few times a month Substance Use Type: d
== END ==
PROVIDERS: Visit Provider Clinical Nurse Specialist Family Health
DX: M54.5 Low back pain (principal); M25.562 Pain in left knee; M54.16 Radiculopathy, lumbar region
CPT/HCPCS: 99212; G0463

== ENCOUNTER → 2020-11-09 09:17 | Outpatient (CLI) | payer MEDICARE, SELFPAY ==
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
== END ==
PROVIDERS: Visit Provider Clinical Nurse Specialist Family Health
DX: M54.5 Low back pain (principal)
CPT/HCPCS: 72148; 76376

== ENCOUNTER → 2020-11-14 09:23 | Outpatient (POV) | payer MEDICARE, SELFPAY ==
[2020-11-14 09:35] VITALS: BP 140/83; PULSE 74; RESP 18; O2SAT 96; BMI 39.0
--- NOTE | 2020-11-14 09:47 | HMH.PAINSOAP ---
[facility] Pain Management SOAP Note Subjective:: Patient is a pleasant 70-year-old white female that presents today for a follow-up and MRI results. The patient is currently being treated for degenerative disc disease of the lumbar spine. MRI was ordered at her last visit. The patient is complaining of increasing pain in the low back. When at rest she rates her pain a 0 out of 10 with ambulation her pain is a 7 out of 10. She describes the pain as a constant ache across the mid to low back. She does experience radiating pains into bilateral legs, she has experienced numbness, tingling and weakness worse on the left as compared to the right. The pain is made worse with prolonged standing and walking. She does get relief in symptoms by rest. When walking such as at the grocery store she does lean forward over the grocery cart to help with discomfort. The patient has tried and failed conservative therapies in the past such as physical therapy, chiropractic adjustments without any significant relief in symptoms. The patient has tried anti-inflammatories with no significant relief. She does also continue at home stretching and exercise program when pain allows. She is not currently prescribed controlled substances from our office. Her [facility] number is [id number] Review of Systems General: No recent weight changes, no fever, no sleep disturbances Respiratory: No cough, no shortness of air, no recurring pulmonary infections Cardiovascular/peripheral vascular: No chest pain, no palpitations, no edema, no shortness of breath Gastrointestinal: No new onset incontinence, normal bowel movements reported Genitourinary: No new onset incontinence Musculoskeletal: [low back pain] Psychiatric: [Normal mood/affect] Neurological: [Denies weakness in extremities], [denies balance issues] Objective:: Physical exam General: Alert and oriented x3 no acute distress, pleasant and cooperative, [on room air] Lungs: Respirations even and unlabored, symmetrical chest expansion Eyes: PERRL Musculoskeletal: Flexion and extension of the lumbar spine nonguarded, deep tendon reflexes normal, strength in upper and lower extremities 5 out of 5 normal gait noted Neurological: Speech clear, hardwood floor finisher equal, no gross sensory deficit Assessment:: Degenerative disc disease of the lumbar spine, lumbar radiculopathy, ligament flavum hypertrophy, facet arthropathy, lumbar spondylosis Plan:: MRI of the lumbar spine reveals degenerative changes, L2-L3 degenerative disc disease with bulging disc with facet and ligament hypertrophic change there is severe bilateral lateral recess narrowing which is greater on the right along with severe right-sided foraminal narrowing there is severe bilateral lateral recess narrowing which is greater on the right along with severe right-sided foraminal narrowing. L3-L4 degenerative disc disease with bulging disc with severe facet and ligament hypertrophic change severe canal stenosis as well as severe bilateral lateral recess and foraminal narrowing. L4-L5 mild degenerative disc disease 7 mm anterolisthesis on L4 on L5 ligament hypertrophic change with canal stenosis. L5-S1 bulging disc which is slightly eccentric toward the left with facet and ligament hypertrophic change moderate to severe left-sided foraminal narrowing and mild right foraminal narrowing. There is also chronic wedge compression change at T12 with kyphosis at T11-T12. We will schedule the patient for lumbar epidurogram at L4-L5 for further evaluation. We did discuss the minimally invasive lumbar decompression procedure today. As the patient may be a candidate for this procedure in the future. She is not currently on any anticoagulation therapy. She is welcome to contact the clinic if she has any questions or concerns prior to her injection date. Dr. Velez has reviewed this note and agrees with this plan of care. This note was dictated using voice recognition [place]
== END ==
PROVIDERS: Visit Provider Family Medicine
DX: M51.16 Intervertebral disc disorders with radiculopathy, lumbar region (principal); M54.06 Panniculitis affecting regions of neck and back, lumbar region; M47.896 Other spondylosis, lumbar region
CPT/HCPCS: 99212; G0463

== ENCOUNTER 2020-12-02 09:23 | Day surgery (SDC) | payer MEDICARE, SELFPAY ==
[2020-12-02 09:27] VITALS: BP 180/66; PULSE 60; RESP 20; TEMP 36.4; O2SAT 97; BMI 39.0
[2020-12-02 09:47] VITALS: BP 140/67; PULSE 65; RESP 18; O2SAT 95
[2020-12-02 09:51] VITALS: BP 156/75; PULSE 70; RESP 18; O2SAT 94
[2020-12-02 10:07] VITALS: BP 158/77; PULSE 63; RESP 20; O2SAT 97
--- NOTE | 2020-12-02 10:24 | HMH.PMPROC ---
- Procedure Date: 12/02/20 Time: 10:24 Anesthesiologist:: French Velez MD Complications:: None Pre-procedure Diagnosis:: Degenerative disc disease of lumbar spine with lumbar radiculopathy symptoms and lumbar spinal stenosis with neurogenic claudication symptoms Post-procedure Diagnosis:: Same Indications for Procedure:: This patient is a pleasant 70-year-old white female who we are treating for low back pain with lumbar spinal stenosis symptoms and neurogenic claudication. She has increasing pain while standing and walking. She also has some numbness and tingling and weakness worse on the left as compared to the right which again is worse with prolonged standing and walking. We will do a lumbar epidural steroid injection with epidurogram today to see if this gives her adequate pain relief and assess levels of stenosis and candidacy for minimally invasive lumbar decompression. Procedure Details:: Informed consent was obtained and the risk and benefits of the procedure was explained to the patient. The patient was taken to the procedure room. The patient was placed prone on the procedure table. The patient was prepped and draped in sterile fashion. C-arm fluoroscopy was used to view the lumbar spine. Skin and subcutaneous tissues were anesthetized using lidocaine. I placed an 18-gauge epidural needle and advanced into the L4-L5 interspace using fluoroscopic guidance and [id number] to air. After confirmation of needle placement in the epidural space with dye I injected 2 mL of lidocaine 1.5% with Depo-Medrol 80 mg. Patient tolerated the procedure well with no complications. Plan and Disposition:: Based on epidurogram she does have significant stenosis at L3-L4 and L4-L5. We will seek approval and plan on minimally invasive lumbar decompression bilateral L3-L4 and L4-L5 to see if this helps with her pain symptoms.
== END 2020-12-02 10:08 | disposition home or self-care (01) ==
LOC: SC.PAINP 09:25
PROVIDERS: PCP Internal Medicine Adolescent Medicine; Visit Provider Anesthesiology
DX: M51.16 Intervertebral disc disorders with radiculopathy, lumbar region (principal); M48.062 Spinal stenosis, lumbar region with neurogenic claudication; E07.9 Disorder of thyroid, unspecified; E78.5 Hyperlipidemia, unspecified; I10 Essential (primary) hypertension; K21.9 Gastro-esophageal reflux disease without esophagitis; M19.90 Unspecified osteoarthritis, unspecified site; B15.9 Hepatitis A without hepatic coma
CPT/HCPCS: 62323; J1040; Q9966

== ENCOUNTER 2020-12-08 08:00 | Outpatient (RCR) | payer MEDICARE, SELFPAY ==
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
== END 2020-12-08 08:05 | disposition home or self-care (01) ==
LOC: PT 08:00
PROVIDERS: Visit Provider Clinical Nurse Specialist Family Health
DX: M54.5 Low back pain (principal)
CPT/HCPCS: 97010; 97014; 97110; 97163; G0283

== ENCOUNTER 2020-12-16 11:32 | Outpatient (CLI) | payer SELFPAY | END 2020-12-16 12:31 | PROVIDERS: Visit Provider Nurse Practitioner Family | DX: Z02.4 Encounter for examination for driving license (principal) ==

== ENCOUNTER → 2021-01-02 09:30 | Outpatient (POV) | payer MEDICARE, SELFPAY ==
[2021-01-02 09:37] VITALS: BP 139/69; PULSE 73; RESP 18; O2SAT 95; BMI 39.0
--- NOTE | 2021-01-02 10:20 | HMH.PAINSOAP ---
[facility] Pain Management SOAP Note Subjective:: Patient is a 70-year-old white female who presents today for follow-up after lumbar epidural steroid injection at L4-L5 with an epidurogram. She is being treated for degenerative disc disease lumbar spine with lumbar radiculopathy symptoms. She also has spinal stenosis with neurogenic claudication symptoms. Patient did come to the clinic with complaints of low back pain as well as unsteadiness and heaviness and weakness in lower extremities. Following the patient's injection, she reports to have gotten 80% relief. She is continuing to have relief. She states her unsteadiness and uneasiness has improved as well. Today, she is denying any pain. This was the patient's #1 injection. Review of Systems General: No recent weight changes, no fever, no sleep disturbances Respiratory: No cough, no shortness of air, no recurring pulmonary infections Cardiovascular/peripheral vascular: No chest pain, no palpitations, no edema, no shortness of breath Gastrointestinal: No new onset incontinence, normal bowel movements reported Genitourinary: No new onset incontinence Musculoskeletal: No pain at this time Psychiatric: [Normal mood/affect] Neurological: [Denies weakness in extremities], [denies balance issues] Objective:: Physical exam General: Alert and oriented x3, no acute distress, pleasant and cooperative, [on room air] Lungs: Respirations even and unlabored, symmetrical chest expansion Eyes: PERRL Musculoskeletal: Flexion and extension of [spine] nonguarded, strength in upper and lower extremities [5/5], normal gait noted Neurological: Speech clear, [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 Velez did perform an epidurogram on the patient with her initial injection. He did note the patient to have significant stenosis at L3-L4 and L4-L5. Patient got significant relief with her injective therapy. She would like to postpone any further procedures until she determines the longevity of the injections. We will schedule her for 3-month follow-up. If the pain does return we will set the patient up for a #2 injection. In the future, if injective therapy is not beneficial for her pain, she will be a great candidate for mild procedure L3-L4 L4-L5. Patient has been instructed to contact the clinic with any concerns before the next appointment. Dr. Velez has reviewed this note and agrees with this plan of care. This note was dictated using voice recognition software and make contain errors or omissions. [facility] History I have reviewed the patient's past medical history: Yes Medical History: Reports:: Gastroesophageal Reflux Disease(GERD), Hyperlipidemia, Hypertension Denies:: Cancer, Diabetes Mellitus Type 1, Diabetes Mellitus Type 2, Internal Pacemaker, Lung Disease, MRSA, Seizures *Have you ever received a pneumonia vaccine?: Yes *Have you received a flu vaccine this season?: No Other Medical History: Reports: Arthritis, Thyroid Disease, Other. Denies: Blood Transfusion Reaction Laterality Cases: Bilateral: Tonsillectomy Other Surgeries: Yes: Cardiac Catheterization, Hysterectomy-Total, Hysterectomy-Partial, Other. No: Pacemaker Amputation: No Fractures: No - *Social History Smoking Status: Never smoker Alcohol Intake: never Alcohol Intake Frequency:: a few times a month Substance Use Type: denies use *Occupational Status:: unemployed Housing: house Household Members: significant other *Travel in the last 8 weeks: None Family Hx:: Diabetes, Heart Attack, Hypertension
== END ==
PROVIDERS: Visit Provider Clinical Nurse Specialist Family Health
DX: M51.16 Intervertebral disc disorders with radiculopathy, lumbar region (principal); M48.062 Spinal stenosis, lumbar region with neurogenic claudication
CPT/HCPCS: 99212; G0463

== ENCOUNTER → 2021-01-24 09:02 | Outpatient (POV) | payer MEDICARE, SELFPAY ==
[2021-01-24 09:09] VITALS: BP 186/81; PULSE 78; RESP 18; O2SAT 100; BMI 39.0
--- NOTE | 2021-01-24 09:26 | HMH.PAINSOAP ---
[facility] Pain Management SOAP Note Subjective:: Patient is a 70-year-old white female who presents today for follow-up. She is having left knee pain. Patient is having some notable swelling as well as significant pain with movement of her left knee. She has had left intra-articular knee injections. She reports the last injection to be in February 2020. This did give her significant relief until the last month. Patient says that the pain initially started into the medial aspect of the knee but is now progressed around the entire knee area. She denies pain with raising leg, but does report to have significant pain with bending and with standing or walking. Any pressure applied to the knee causes her to have pain. She does rate her pain a 4 out of 10. She does perform a home stretching program at home along with ice and heat therapies and anti-inflammatories. Patient is routinely treated in our clinic with epidural steroid injections for her lumbar spine. She has also had an epidurogram and was noted to have significant stenosis at L3-L4 L4-L5 area. The patient was recommended to have a mild procedure but has postponed at this time due to injections given her significant relief. Patient's last lumbar epidural steroid injection was a #2 injection. Review of Systems General: No recent weight changes, no fever, no sleep disturbances Respiratory: No cough, no shortness of air, no recurring pulmonary infections Cardiovascular/peripheral vascular: No chest pain, no palpitations, no edema, no shortness of breath Gastrointestinal: No new onset incontinence, normal bowel movements reported Genitourinary: No new onset incontinence Musculoskeletal: Left knee pain worse with standing and walking and bending Psychiatric: [Normal mood/affect] Neurological: Weakness left knee due to left knee pain Objective:: Physical exam General: Alert and oriented x3, no acute distress, pleasant and cooperative Lungs: Respirations even and unlabored, symmetrical chest expansion Eyes: PERRL Musculoskeletal: Flexion and extension of left knee somewhat guarded secondary to pain, [antalgic gait noted] Neurological: Speech clear, no gross sensory deficit Assessment:: Left knee pain, osteoarthritis left knee Plan:: We will schedule patient for a left intra-articular knee injection. She has not had any recent imaging of her knee. We will also order an x-ray of the left knee. We will see her back in the clinic after her injection to establish a further plan of care and review her x-ray as well as determine if the injection gave her any relief. Possible side effects of corticosteroids have been discussed with the patient. Risks and benefits of the procedure have been explained to the patient. Patient would like to proceed with the procedure. Patient has been instructed to contact the clinic with any concerns before the next appointment. Dr. Velez has reviewed this note and agrees with this plan of care. This note was dictated using voice recognition software and make contain errors or omissions. [facility] History I have reviewed the patient's past medical history: Yes Medical History: Reports:: Gastroesophageal Reflux Disease(GERD), Hyperlipidemia, Hypertension Denies:: Cancer, Diabetes Mellitus Type 1, Diabetes Mellitus Type 2, Internal Pacemaker, Lung Disease, MRSA, Seizures *Have you ever received a pneumonia vaccine?: Yes *Have you received a flu vaccine this season?: No Other Medical History: Reports: Arthritis, Thyroid Disease, Other. Denies: Blood Transfusion Reaction Laterality Cases: Bilateral: Tonsillectomy Other Surgeries: Yes: Cardiac Catheterization, Hysterectomy-Total, Hysterectomy-Partial, Other. No: Pacemaker Amputation: No Fractures: No - *Social History Smoking Status: Never smoker Alcohol Intake: never Alcohol Intake Frequency:: a few times a month Substance Use Type: denies use *Occupational Status:: unemployed Housing: house Ho
== END ==
PROVIDERS: Visit Provider Clinical Nurse Specialist Family Health
DX: M17.12 Unilateral primary osteoarthritis, left knee
CPT/HCPCS: 73562; 99212; G0463

== ENCOUNTER → 2021-01-24 09:40 | Outpatient (CLI) | payer MEDICARE, SELFPAY ==
--- NOTE | 2021-01-24 09:46 | XR_ITS ---
PROCEDURE: XR KNEE LT 3V CLINICAL INDICATION: WORSENING PAIN COMPARISON: CR XR KNEE LT 3V from 04/01/2019 FINDINGS: No fracture or dislocation. No lytic or blastic change. There is normal mineralization. There are moderate to severe osteoarthritic changes of the medial compartment with chondrocalcinosis of the medial meniscus. The osteoarthritic changes are slightly progressed from 04/01/2019. Mild osteoarthritic changes are present at the patellofemoral joint. There is chondrocalcinosis the lateral meniscus. Other findings:None. IMPRESSION: Osteoarthritic changes as described above slightly progressed at the medial compartment with chondrocalcinosis Dictated by: Mateo Holt MD 01/24/2021 10:08 Mateo Holt MD in [place] 01/24/2021 10:08
== END ==
PROVIDERS: PCP Internal Medicine Adolescent Medicine; Visit Provider Anesthesiology
DX: M25.562 Pain in left knee (principal)
CPT/HCPCS: 73562

== ENCOUNTER 2021-01-27 14:20 | Day surgery (SDC) | payer MEDICARE, SELFPAY ==
[2021-01-27 14:21] VITALS: BP 157/76; PULSE 75; RESP 18; TEMP 35.4; O2SAT 97; BMI 39.0
[2021-01-27 14:40] VITALS: BP 149/76; PULSE 74; RESP 18; O2SAT 94
[2021-01-27 14:42] VITALS: BP 149/76; PULSE 76; RESP 18; O2SAT 96
--- NOTE | 2021-01-27 14:44 | P.PCN_ITS ---
- Procedure Date: 01/27/21 Time: 14:44 Anesthesiologist:: French Velez MD Complications:: None Pre-procedure Diagnosis:: Left knee pain with degenerative osteoarthritis Post-procedure Diagnosis:: Same Indications for Procedure:: This patient is a pleasant 70-year-old white female who we are treating for left knee pain. She is has had a knee x-ray which does show degenerative osteoarthr itis on the medial side more than the lateral side. We will plan on a left knee intra-articular injection today. Procedure Details:: Left knee intra-articular injection Form consent was obtained risk and benefits of the procedure were explained to the patient. Patient was taken to the procedure room. Left knee was prepped using ChloraPrep. A 25-gauge needle was used first medially then laterally to inject 10 mL bupivacaine 0.25% and Depo-Medrol 40 mg. Patient tolerated the procedure well with no complications. Plan and Disposition:: We will follow-up with her in 2 weeks. Will reevaluate symptoms at that time.
[2021-01-27 15:00] VITALS: BP 136/80; PULSE 74; RESP 20; O2SAT 98
== END 2021-01-27 15:00 | disposition home or self-care (01) ==
LOC: SC.PAINP 14:21
PROVIDERS: PCP Internal Medicine Adolescent Medicine; Visit Provider Anesthesiology
DX: M17.12 Unilateral primary osteoarthritis, left knee (principal); I10 Essential (primary) hypertension
CPT/HCPCS: 27096; G0260; J1040

== ENCOUNTER → 2021-02-13 09:58 | Outpatient (POV) | payer MEDICARE, SELFPAY ==
[2021-02-13 10:12] VITALS: BP 153/78; PULSE 69; RESP 18; O2SAT 99; BMI 39.0
--- NOTE | 2021-02-13 12:05 | HMH.PAINSOAP ---
[facility] Pain Management SOAP Note Subjective:: Patient is a 70-year-old white female who presents today for follow-up after left knee injection. She has been treated for osteoarthritis left knee. Patient says that she got significant relief with the injection and is doing well overall. Patient does typically get 1 to 2 months of relief with injections. She is having pain in her neck into her right hand with occasional numbness and tingling. She has seen a chiropractor for her neck pain. The patient says that she is planning to travel to [place] for 3 months and would like to undergo injective therapy to her knee before leaving. She is scheduled to leave on 01 April. She would like to undergo injective therapy on the . At this time, the patient's pain is at a 1 out of 10. She does continue with home stretching. Review of Systems General: No recent weight changes, no fever, no sleep disturbances Respiratory: No cough, no shortness of air, no recurring pulmonary infections Cardiovascular/peripheral vascular: No chest pain, no palpitations, no edema, no shortness of breath Gastrointestinal: No new onset incontinence, normal bowel movements reported Genitourinary: No new onset incontinence Musculoskeletal: Intermittent left knee pain, neck pain with radiation into right hand with numbness and tingling Psychiatric: [Normal mood/affect] Neurological: [Denies weakness in extremities], [denies balance issues] Objective:: Physical exam General: Alert and oriented x3, no acute distress, pleasant and cooperative Lungs: Respirations even and unlabored, symmetrical chest expansion Eyes: PERRL Musculoskeletal: Flexion and extension of left lower extremity somewhat guarded secondary to pain, slightly antalgic gait noted Neurological: Speech clear, no gross sensory deficit Assessment:: Osteoarthritis left knee, left knee pain Plan:: We will schedule the patient for repeat injection to her left knee on March 31 before her trip to [place]. We will plan to see her back after the injection for reevaluation of symptoms. The patient typically gets a month of relief with the injections. We also gave the patient Pennsaid cream to apply topically to the area as well. She will continue with home stretching. The patient has tried physical therapy for greater than 6 weeks in the past and continues with chiropractic therapy. Possible side effects of corticosteroids have been discussed with the patient. Risks and benefits of the procedure have been explained to the patient. Patient would like to proceed with the procedure. Patient has been instructed to contact the clinic with any concerns before the next appointment. Dr. Velez has reviewed this note and agrees with this plan of care. This note was dictated using voice recognition software and make contain errors or omissions. [facility] History I have reviewed the patient's past medical history: Yes Medical History: Reports:: Gastroesophageal Reflux Disease(GERD), Hyperlipidemia, Hypertension Denies:: Cancer, Diabetes Mellitus Type 1, Diabetes Mellitus Type 2, Internal Pacemaker, Lung Disease, MRSA, Seizures *Have you ever received a pneumonia vaccine?: Yes *Have you received a flu vaccine this season?: Yes Other Medical History: Reports: Arthritis, Thyroid Disease, Other. Denies: Blood Transfusion Reaction Laterality Cases: Bilateral: Tonsillectomy Other Surgeries: Yes: Cardiac Catheterization, Hysterectomy-Total, Hysterectomy-Partial, Other (life lock zuleima). No: Pacemaker Amputation: No Fractures: No - *Social History Smoking Status: Never smoker Alcohol Intake: never Alcohol Intake Frequency:: a few times a month Substance Use Type: denies use *Occupational Status:: unemployed Housing: house Household Members: significant other *Travel in the last 8 weeks: None Family Hx:: Diabetes, Heart Attack, Hypertension
== END ==
PROVIDERS: Visit Provider Clinical Nurse Specialist Family Health
DX: M17.12 Unilateral primary osteoarthritis, left knee (principal)
CPT/HCPCS: 99212; G0463

== ENCOUNTER 2021-03-31 08:58 | Day surgery (SDC) | payer MEDICARE, SELFPAY ==
[2021-03-31 09:11] VITALS: BP 167/91; PULSE 76; RESP 18; TEMP 36.5; O2SAT 97; BMI 39.0
[2021-03-31 09:29] VITALS: BP 179/77; PULSE 70; RESP 18; O2SAT 97
[2021-03-31 09:30] VITALS: PULSE 70; RESP 18; O2SAT 97
--- NOTE | 2021-03-31 09:33 | HMH.PMPROC ---
- Procedure Date: 03/31/21 Time: 09:33 Anesthesiologist:: Ciarra Leslie MD Complications:: None Pre-procedure Diagnosis:: left knee OA, left knee pain Post-procedure Diagnosis:: same Indications for Procedure:: Patient is a very pleasant 71-year-old white female who presents today with chronic left-sided knee pain related to the above diagnosis. She has tried and failed conservative treatment and oral pain medications and home stretching program for greater than 6 weeks. She has previously undergone left knee and injections notes 70 to 80% pain relief for 1-2 months. She states that the pain has since returned and is requesting a repeat injection. She states that she will be leaving soon for [place] and will not be returning for 3 months. The plan for today is for the patient to undergo a repeat left-sided knee corticosteroid injection. Procedure Details:: Informed consent was obtained. Risks and benefits of the procedure were explained to the patient. Patient was taken back to the procedure room. The left knee was prepped using ChloraPrep. 5 gauge needle was used in a lateral to medial trajectory and the needle was advanced until the intra-articular knee joint was approached. An injectate solution of 10 mL of bupivacaine 0.25% and Depo-Medrol 40 mg was injected into the left knee. Patient tolerated the procedure well with no complications. Plan and Disposition:: Follow-up with this patient in 2 weeks. Will reevaluate pain symptoms at that time.
[2021-03-31 09:36] VITALS: BP 172/88; PULSE 77; RESP 20; O2SAT 94
== END 2021-03-31 09:37 | disposition home or self-care (01) ==
LOC: SC.PAINP 08:59
PROVIDERS: PCP Internal Medicine Adolescent Medicine; Visit Provider Anesthesiology Pain Medicine
DX: M17.12 Unilateral primary osteoarthritis, left knee (principal); E07.9 Disorder of thyroid, unspecified; E78.5 Hyperlipidemia, unspecified; I10 Essential (primary) hypertension; K21.9 Gastro-esophageal reflux disease without esophagitis; K75.9 Inflammatory liver disease, unspecified; Z72.0 Tobacco use
CPT/HCPCS: 20610; J1040

== ENCOUNTER → 2021-07-10 10:14 | Outpatient (POV) | payer MEDICARE, SELFPAY ==
[2021-07-10 10:26] VITALS: BP 113/86; PULSE 74; RESP 18; TEMP 36.4; O2SAT 94; BMI 39.0
--- NOTE | 2021-07-10 12:26 | HMH.PAINSOAP ---
[facility] Pain Management SOAP Note Subjective:: Patient is a pleasant 71-year-old female who presents today for follow-up. Patient is current being treated for degenerative disc disease of lumbar spine with lumbar radiculopathy symptoms, chronic left-sided knee pain. Patient is currently being managed with injective therapy past. She also takes [id number] pain medications such as Tylenol and Advil. Today, patient has been complaining of low back pain that radiates to bilateral lower extremities. This is better with flexion and worse with extension. We had scheduled this patient for a minimally invasive lumbar decompression at L3-L4 and L4-L5 on December 02, 2020. However, patient canceled this procedure because she had significant relief after the lumbar epidural steroid injections. She was wondering if she can have a repeat injection scheduled today. She rates her pain as 0 out of 10 but it shoots up to 6 out of 10 when she starts walking. She is not on any scheduled medications right now. Review of Systems: General: No recent weight changes, no fever, no sleep disturbances Respiratory: No cough, no shortness of air, no recurring pulmonary infections Cardiovascular/peripheral vascular: No chest pain, no palpitations, no edema, no shortness of breath Gastrointestinal: No new onset incontinence, normal bowel movements reported Genitourinary: No new onset incontinence Musculoskeletal: Low back pain, left knee pain Psychiatric: [Normal mood/affect] Neurological: [Denies weakness in extremities], [denies balance issues] Objective:: Physical Exam: General: Alert and oriented x3, no acute distress, pleasant and cooperative, [on room air] Lungs: Respirations even and unlabored, symmetrical chest expansion Eyes: PERRL Musculoskeletal: Flexion and extension of lumbar [spine] somewhat guarded secondary to pain; limited range of motion of the left knee secondary to pain Neurological: Speech clear, no gross sensory deficit Assessment:: Degenerative disc disease of lumbar spine with lumbar radiculopathy symptoms Lumbar spinal stenosis neurogenic claudication Osteoarthritis of the left knee Plan:: Patient has tried and failed conservative therapies such as oral medication, physical therapy and at home exercises for greater than 6 weeks. Patient had a significant relief after her lumbar epidural steroid injection 4 to 5 months ago. We will schedule her for a repeat lumbar epidural steroid injection. Risk and benefits has been discussed with the patient and patient would like to proceed with this procedure. Patient is currently not on any blood thinners. Patient is not diabetic. Patient has been instructed to contact the clinic with any concerns before the next appointment. Dr. Velez has reviewed this note and agrees with this plan of care. This note was dictated using voice recognition software and make contain errors or omissions. [facility] History Medical History: Reports:: Gastroesophageal Reflux Disease(GERD), Hyperlipidemia, Hypertension Denies:: Cancer, Diabetes Mellitus Type 1, Diabetes Mellitus Type 2, Internal Pacemaker, Lung Disease, MRSA, Seizures *Have you ever received a pneumonia vaccine?: Yes *Have you received a flu vaccine this season?: Yes Other Medical History: Reports: Arthritis, Thyroid Disease, Other. Denies: Blood Transfusion Reaction Laterality Cases: Bilateral: Tonsillectomy Other Surgeries: Yes: Cardiac Catheterization, Hysterectomy-Total, Hysterectomy-Partial, Other (life lock zuleima). No: Pacemaker Amputation: No Fractures: No - *Social History Smoking Status: Current some day smoker Alcohol Intake: never Alcohol Intake Frequency:: a few times a month Substance Use Type: denies use *Occupational Status:: retired Housing: house Household Members: significant other *Travel in the last 8 weeks: None Family Hx:: Diabetes, Heart Attack, Hypertension
== END ==
PROVIDERS: Visit Provider Student in an Organized Health Care Education/Training Program
DX: M51.16 Intervertebral disc disorders with radiculopathy, lumbar region (principal); M48.062 Spinal stenosis, lumbar region with neurogenic claudication; M17.12 Unilateral primary osteoarthritis, left knee
CPT/HCPCS: 99212; G0463

== ENCOUNTER 2021-07-21 10:20 | Day surgery (SDC) | payer MEDICARE, SELFPAY ==
[2021-07-21 10:26] VITALS: BP 167/80; BP 189/78; PULSE 80; PULSE 81; RESP 18; RESP 20; TEMP 36.6; O2SAT 95; BMI 39.0
[2021-07-21 10:42] VITALS: BP 139/66; PULSE 70; RESP 20; O2SAT 95
--- NOTE | 2021-07-21 10:56 | HMH.PMPROC ---
- Procedure Date: 07/21/21 Time: 10:56 Anesthesiologist:: Kvng Tejeda CRNA Complications:: None Pre-procedure Diagnosis:: Degenerative disc disease lumbar spine multilevels with lumbar radiculopathy Post-procedure Diagnosis:: Same Indications for Procedure:: Very pleasant 71-year-old white female that presents today for lumbar epidural steroid injection. This will be the L4-5 level. Patient is status post lumbar decompression. Degenerative disc disease. Multiple levels. She presents to our clinic today for lumbar 4 5 epidural steroid injection. Procedure Details:: Procedure: Lumbar epidural steroid injection under fluoroscopy Informed consent was obtained and the risks and benefits of the procedure were explained to the patient. The patient was taken to the procedure room and noninvasive monitors placed, including noninvasive blood pressure cuff and pulse oximeter. The back was viewed using C-arm Fluoroscopy and prepped using Betadine as a cleansing solution and the L4-L5 interspace was palpated. Skin and subcutaneous tissues were anesthetized using lidocaine 1.5% and a 25-gauge needle. After this, an 18-gauge Touhy epidural needle was placed into the L4-L5 interspace and advanced using fluoroscopic guidance and loss of resistance to air until the epidural space was encountered. After confirmation of needle placement in the epidural space, with dye, a solution containing lidocaine 1.5%, 4 mL and Depo-Medrol 80 mg were incrementally injected into the lumbar epidural space. The patient tolerated the procedure well with no complications. The patient was observed in the Pain Clinic and then discharged home neurologically intact. Plan and Disposition:: Patient was discharged home without incident. She will return to see us in the clinic.
== END 2021-07-21 10:43 | disposition home or self-care (01) ==
LOC: SC.PAINP 10:21
PROVIDERS: PCP Internal Medicine Adolescent Medicine; Visit Provider Nurse Anesthetist, Certified Registered
DX: M51.36 Other intervertebral disc degeneration, lumbar region (principal); K21.9 Gastro-esophageal reflux disease without esophagitis; E78.5 Hyperlipidemia, unspecified; I10 Essential (primary) hypertension; M19.90 Unspecified osteoarthritis, unspecified site; Z72.0 Tobacco use; Z83.3 Family history of diabetes mellitus; Z82.3 Family history of stroke; Z82.49 Family history of ischemic heart disease and other diseases of the circulatory system
CPT/HCPCS: 62323; J1040

== ENCOUNTER → 2021-08-21 08:17 | Outpatient (CLI) | payer MEDICARE, SELFPAY ==
--- NOTE | 2021-08-21 08:21 | XR_ITS ---
FINAL REPORT TECHNIQUE: Bone mineral density was calculated of the lumbar spine and hip. CLINICAL HISTORY: . post menopausal , prior dexa 2019 FINDINGS: DEXA BONE DENSITY AXIAL SKELETON Using L1-4, the bone mineral density of the spine is 1.129 g/cm2, corresponding to T-score of 0.7. These values are likely falsely elevated secondary to hypertrophic change. Using the right hip, the bone mineral density of the femoral neck is 0.723 g/cm2, corresponding to a T-score of -1.1. NOTE: T-score: Standard deviation compared with peak bone mass of young adult mean. *Following the recommendations of the International Society of Bone densitometry, classification of hip BMD is based on the lower of two T-scores; total hip or femoral neck. IMPRESSION: Diminished bone mineral density of the lumbar spine and right hip consistent with osteopenia. FRAX 10 year fracture risk is 13 % for major osteoporotic fracture. Reviewed, Interpreted and Dictated by Fransisco Mohr III, MD Transcribed by Ana Laura Estrada Authenticated by Fransisco Mohr III, MD on 08/21/2021 01:24:01 PM [facility]
--- NOTE | 2021-08-21 08:21 | MM_ITS ---
PROCEDURE INFORMATION: Exam: MG Bilateral Screening 3D Mammography Exam date and time: 08/21/2021 8:25 AM Age: 71 years old Clinical indication: Screening examination TECHNIQUE: Imaging protocol: Bilateral Screening tomosynthesis and 2D mammography including computer-aided detection (CAD) when performed. COMPARISON: 1. MG MM DIG SCREENING MAMM BI W/CAD 11/16/2019 9:16 AM 2. MG SCBI MM Dig screening mamm BI w/CAD 04/22/2018 8:42 AM 3. MG DMSB DIG MAMM-SCREEN CRISTI W/CAD 05/22/2016 8:28 AM 4. MG DMSB DIG MAMM-SCREEN CRISTI 02/18/2015 9:33 AM FINDINGS: MAMMOGRAPHY: Breast composition: There are scattered areas of fibroglandular density. Mass: Stable benign-appearing nodule is present in the right breast. No new or morphologically suspicious nodule has developed to suggest malignancy. Architectural distortion: No new or suspicious architectural distortion. Calcifications: No new or suspicious calcifications are present Asymmetric density: No new or suspicious asymmetric density is present Skin thickening: None. Axillary adenopathy: None. IMPRESSION: No mammographic evidence of malignancy. Recommend annual screening mammography unless otherwise clinically indicated. ASSESSMENT: BI-RADS category 2: Benign
== END ==
PROVIDERS: PCP Internal Medicine Adolescent Medicine; Visit Provider Nurse Practitioner Family
DX: Z12.31 Encounter for screening mammogram for malignant neoplasm of breast (principal); M85.89 Other specified disorders of bone density and structure, multiple sites
CPT/HCPCS: 77063; 77067; 77080

== ENCOUNTER → 2021-09-05 11:23 | Outpatient (CLI) | payer MEDICARE, SELFPAY ==
--- NOTE | 2021-09-05 11:28 | XR_ITS ---
FINAL REPORT CLINICAL HISTORY: Tremor, imbalance FINDINGS: CERVICAL SPINE COMPLETE/FLEXION AND EXTENSION Eight views demonstrate no acute fracture. There is anterolisthesis of C2 on 3, favor degenerative. There is no worsening anterolisthesis in flexion but improved with extension. There is multilevel degenerative disc disease. The precervical soft tissues are normal. There is a nodule at the left lung apex, likely a granuloma. IMPRESSION: Mild anterolisthesis of C2 on 3 which does not worsen with flexion but improves with extension. Multilevel degenerative disc disease. Reviewed, Interpreted and Dictated by Misty Julio MD Transcribed by Rand Faria Authenticated by Misty Julio MD on 09/05/2021 01:19:53 PM [facility]
[2021-09-05 14:07] LABS: Vitamin B12 896 pg/mL (239-931)
[2021-09-05 15:01] LABS: Folate > 20.00 ng/mL
== END ==
PROVIDERS: PCP Internal Medicine Adolescent Medicine; Visit Provider Specialist
DX: R25.1 Tremor, unspecified (principal); R26.9 Unspecified abnormalities of gait and mobility
CPT/HCPCS: 36415; 72052; 82607; 82746

== ENCOUNTER → 2021-09-07 13:16 | Outpatient (POV) | payer MEDICARE, SELFPAY ==
--- NOTE | 2021-09-07 14:55 | P.CONS_ITS ---
[facility] Pain Management SOAP Note Subjective:: Patient is a pleasant 72-year-old female who presents today as a telehealth for follow-up after a lumbar epidural steroid injection on July 21, 2021. Patient is currently being treated for degenerative disc disease of the lumbar spine with lumbar radiculopathy symptoms, chronic left-sided knee pain. After her procedure, patient had significant relief of 80 to 90%. This injections typically last the patient to 3 months of relief. Today, patient is complaining more about her left knee pain and wants to know if we can schedule her for a left knee intra-articular injection. She continues to do water aerobics which seems to help with her pain and increases her mobility. She takes hhib-bgh-gny nter medications for pain. She is not on any scheduled medications. Vern [id number]. Review of Systems: General: No recent weight changes, no fever, no sleep disturbances Respiratory: No cough, no shortness of air, no recurring pulmonary infections Cardiovascular/peripheral vascular: No chest pain, no palpitations, no edema, no shortness of breath Gastrointestinal: No new onset incontinence, normal bowel movements reported Genitourinary: No new onset incontinence Musculoskeletal: Low back pain, left knee pain Psychiatric: [Normal mood/affect] Neurological: [Denies weakness in extremities], [denies balance issues] Objective:: General: Alert and oriented x3, pleasant and cooperative Lungs: Patient is able to say complete sentences without dyspnea Neurological: Speech clear Assessment:: Degenerative disc disease of lumbar spine with lumbar radiculopathy symptoms Osteoarthritis of the left knee Plan:: Patient continues to have significant relief after the lumbar epidural steroid injection. Patient is complaining of left knee pain today. We will schedule the patient for a left knee intra-articular injection. Patient has been instructed to contact the clinic with any concerns before the next appointment. Dr. Velez has reviewed this note and agrees with this plan of care. This note was dictated using voice recognition software and make contain errors or omissions. [facility] History Medical History: Reports:: Gastroesophageal Reflux Disease(GERD), Hepatitis, Hyperlipidemia, Hypertension Denies:: Cancer, Diabetes Mellitus Type 1, Diabetes Mellitus Type 2, Internal Pacemaker, Lung Disease, MRSA, Seizures *Have you ever received a pneumonia vaccine?: Yes *Have you received a flu vaccine this season?: Yes Other Medical History: Reports: Arthritis, Thyroid Disease, Other. Denies: Blood Transfusion Reaction Laterality Cases: Bilateral: Tonsillectomy Other Surgeries: Yes: Cardiac Catheterization, Colonoscopy, Hysterectomy-Total, Hysterectomy-Partial, Other (life lock bux). No: Pacemaker Amputation: No Fractures: No - *Social History Smoking Status: Never smoker Alcohol Intake: current Alcohol Intake Frequency:: a few times a month Substance Use Type: denies use *Occupational Status:: other Housing: house Household Members: significant other *Travel in the last 8 weeks: Inside the [facility] Family Hx:: Diabetes, Heart Attack, Hypertension, Other, Stroke
== END ==
PROVIDERS: Visit Provider Student in an Organized Health Care Education/Training Program
DX: M51.16 Intervertebral disc disorders with radiculopathy, lumbar region (principal); M17.12 Unilateral primary osteoarthritis, left knee

== ENCOUNTER → 2021-09-13 11:05 | Outpatient (CLI) | payer MEDICARE, SELFPAY ==
--- NOTE | 2021-10-05 08:51 | PC.NURSE ---
PATIENT PICKED UP DEVICE - RETURNED WITH NO DATA DUE TO FAMILY EMERGENCY - NO CHARGE....
== END ==
PROVIDERS: PCP Internal Medicine Adolescent Medicine; Visit Provider Specialist
DX: R42 Dizziness and giddiness (principal)

== ENCOUNTER 2021-09-29 09:25 | Day surgery (SDC) | payer MEDICARE, SELFPAY ==
[2021-09-29 09:32] VITALS: BP 162/67; PULSE 54; RESP 18; TEMP 36.3; O2SAT 96; BMI 39.0
[2021-09-29 09:53] VITALS: BP 182/96; PULSE 60; RESP 20
--- NOTE | 2021-09-29 09:58 | P.PCN_ITS ---
- Procedure Date: 09/29/21 Time: 09:59 Anesthesiologist:: Kvng Tejeda CRNA Complications:: None Pre-procedure Diagnosis:: Osteoarthritis left knee bilateral sacroiliitis. Post-procedure Diagnosis:: Same Indications for Procedure:: Very pleasant 72-year-old female whose had bilateral knee intra-articular injections in the past. She does quite well with 3 to 6 months of relief regard ing knee pain. Today she presents for left intra-articular knee injection. He rates her pain 7/10. Also, patient has had bilateral SI joint injections in the past. She does have a naloxone the right SI joint. However, she is having some increased pain in the left SI joint. We discussed in detail scheduling the patient for left SI joint injection. I think this would be appropriate. We will put her on the schedule next week with Dr. Velez. Procedure Details:: Details of the procedure were explained to the patient. The patient taken the procedure room placed in the sitting position on the fluoroscopy table. The area over the left knee was cleansed using chlorhexidine as a cleansing solution. Using 25-gauge needle the left knee was accessed using the medial condylar joint space. After negative aspiration 3 cc of 1% lidocaine and 3 cc of 0.25% Marcaine +40 mg of Depo-Medrol was injected. Patient tolerated procedure without difficulty. There are no complications. Plan and Disposition:: She was discharged without incident.
[2021-09-29 10:01] VITALS: BP 147/67; PULSE 48; RESP 18; O2SAT 96
== END 2021-09-29 10:01 | disposition home or self-care (01) ==
LOC: SC.PAINP 09:26
PROVIDERS: PCP Internal Medicine Adolescent Medicine; Visit Provider Nurse Anesthetist, Certified Registered
DX: M17.12 Unilateral primary osteoarthritis, left knee (principal); M46.1 Sacroiliitis, not elsewhere classified
CPT/HCPCS: 20610; J1040

== ENCOUNTER → 2021-10-05 09:39 | Outpatient (CLI) | payer MEDICARE, SELFPAY | PROVIDERS: PCP Internal Medicine Adolescent Medicine; Visit Provider Specialist | DX: G47.33 Obstructive sleep apnea (adult) (pediatric) (principal); R06.83 Snoring | CPT/HCPCS: G0399 ==

== ENCOUNTER 2021-10-06 10:05 | Day surgery (SDC) | payer MEDICARE, SELFPAY ==
[2021-10-06 10:19] VITALS: BP 134/63; PULSE 55; RESP 20; TEMP 36.6; O2SAT 95; BMI 38.0
[2021-10-06 11:07] VITALS: BP 155/54; PULSE 53; RESP 20
--- NOTE | 2021-10-06 11:28 | HMH.PMPROC ---
- Procedure Date: 10/06/21 Time: 11:28 Anesthesiologist:: French Velez MD Complications:: None Pre-procedure Diagnosis:: Sacroiliitis Post-procedure Diagnosis:: Same Indications for Procedure:: Patient is a pleasant 71-year-old white female who we are treating for knee pain and left hip pain. She has had SI joint injections in the past. She has done well with these. Pain is returned over the left SI joint. She does have a positive Darnell's test on the left side. She has positive [place]'s test on the left side. She is positive SI joint compression test on the left side. We will plan on left SI joint injection under fluoroscopy today. She is also doing well regarding her knee injection. Pain is well controlled in her knees. Procedure Details:: Left SI joint injection under fluoroscopy Informed consent was obtained and the risks and benefits of the procedure was explained to the patient. Patient was taken to the procedure room. Patient was placed prone on the procedure table. The left hip was prepped using ChloraPrep. The skin and subcutaneous tissues were anesthetized using lidocaine. I placed a 22-gauge spinal needle into the inferior aspect of the left SI joint. Needle placement was confirmed with dye. After this we injected 5 mL bupivacaine 0.25% and Depo-Medrol 40 mg into the left SI joint. The patient tolerated the procedure well with no complication. Plan and Disposition:: We will follow-up with her in 2 weeks. Will reevaluate symptoms at that time.
[2021-10-06 11:30] VITALS: BP 138/66; PULSE 58; RESP 18; O2SAT 96
== END 2021-10-06 11:31 | disposition home or self-care (01) ==
LOC: SC.PAINP 10:06
PROVIDERS: PCP Internal Medicine Adolescent Medicine; Visit Provider Anesthesiology
DX: M46.1 Sacroiliitis, not elsewhere classified (principal)
CPT/HCPCS: 27096; G0260; J1040; Q9966

== ENCOUNTER → 2021-10-30 10:44 | Outpatient (POV) | payer MEDICARE, SELFPAY ==
--- NOTE | 2021-10-30 11:15 | HMH.PAINSOAP ---
[facility] Pain Management SOAP Note Subjective:: Patient is a pleasant 55-year-old female who is here for medication refill and follow-up. We are currently treating the patient for degenerative disc disease of lumbar spine with lumbar radiculopathy symptoms. Today she rates her pain a 6 out of 10. She states the pain is in her right shoulder and describes it as a throbbing, intermittent and weather dependent pain. Patient states she had brain surgery in 2008 and this pain has remained since. He denies any new trauma or injury to the site. She is managed with [place] 10 mg 3 times a day, Robaxin 750 mg 3 times a day and diclofenac 75 mg twice a day. She denies any side effects from these medications. She denies any change to the location or type of pain. She states these medications do adequately manage her pain. Her Vern is [id number]. It has been reviewed and appropriate. Review of Systems: General: No recent weight changes, no fever, no sleep disturbances Respiratory: No cough, no shortness of air, no recurring pulmonary infections Cardiovascular/peripheral vascular: No chest pain, no palpitations, no edema, no shortness of breath Gastrointestinal: No new onset incontinence, normal bowel movements reported Genitourinary: No new onset incontinence Musculoskeletal: Right shoulder pain, low back pain Psychiatric: [Normal mood/affect] Neurological: [Denies weakness in extremities], [denies balance issues] Objective:: Physical Exam: General: Alert and oriented x3, no acute distress, pleasant and cooperative Lungs: Respirations even and unlabored, symmetrical chest expansion Eyes: PERRL Musculoskeletal: Flexion and extension of right shoulder and lumbar [spine] somewhat guarded secondary to pain, [antalgic gait noted] Neurological: Speech clear, no gross sensory deficit Assessment:: Degenerative disc disease of lumbar spine with lumbar radiculopathy symptoms, shoulder pain Plan:: Patient states that she is adequately managed with her pain medication. Patient stated that she has had significant improvement from when she started with this pain. I will refill her medications of [place] 10 mg 3 times a day, Robaxin-750 milligrams 3 times a day and diclofenac 75 mg twice a day. I have discussed with the patient about having updated imaging of her right shoulder as well as possible injections and possible implant down the road. At this time the patient would like to continue medications only. Patient return to clinic for follow up in 1 month. Patient has been instructed to contact the clinic with any concerns before the next appointment. Dr. Velez has reviewed this note and agrees with this plan of care. This note was dictated using voice recognition software and make contain errors or omissions. [facility] History I have reviewed the patient's past medical history: Yes Medical History: Reports:: Gastroesophageal Reflux Disease(GERD), Hepatitis, Hyperlipidemia, Hypertension Denies:: Cancer, Diabetes Mellitus Type 1, Diabetes Mellitus Type 2, Internal Pacemaker, Lung Disease, MRSA, Seizures *Have you ever received a pneumonia vaccine?: Yes *Have you received a flu vaccine this season?: Yes Other Medical History: Reports: Arthritis, Thyroid Disease, Other. Denies: Blood Transfusion Reaction Laterality Cases: Bilateral: Tonsillectomy Other Surgeries: Yes: Cardiac Catheterization, Colonoscopy, Hysterectomy-Total, Hysterectomy-Partial, Other (life lock zuleima). No: Pacemaker Amputation: No Fractures: No - *Social History Smoking Status: Never smoker Alcohol Intake: never Alcohol Intake Frequency:: a few times a month Substance Use Type: denies use *Occupational Status:: retired Housing: house Household Members: significant other *Travel in the last 8 weeks: Inside the [facility] Family Hx:: No significant family history
--- NOTE | 2021-10-30 11:43 | HMH.PAINSOAP ---
[facility] Pain Management SOAP Note Subjective:: Patient is a pleasant 71-year-old female who presents today for follow-up. Patient is currently being treated for degenerative disc disease of lumbar spine with lumbar radiculopathy symptoms, chronic left-sided knee pain, bilateral sacroiliitis. We have been managing this patient with injective therapy. She previously had a lumbar epidural steroid injection that provides 80 to 90% of relief for 2 to 3 months. She is also a good candidate for the mild procedure at L3-L4 and L4-L5 bilaterally, however, she is not ready to move forward with this procedure yet. We also have done bilateral SI injection. She had a right cornerloc procedure that continues to work. She recently had a left SI injection that provided 80-90% relief for about two weeks. She feels like this injection is starting to wear off. We also have done several left intraarticular knee injections in the past couple of years. She gets 2-3 months of relief from this injection. She has not been evaluated by Ortho per the patient. Today, she is mostly complaining of pain around her left hip and left knee. She is wanting to know if she can get a repeat lumbar epidural steroid injections since this helps her bilateral lower extremity pain. Rates her pain today as 8/10. She takes etodolac and tylenol arthritis for pain. She also endorsed taking an old prescription of [place] 5mg. Vern [id number]. Review of Systems: General: No recent weight changes, no fever, no sleep disturbances Respiratory: No cough, no shortness of air, no recurring pulmonary infections Cardiovascular/peripheral vascular: No chest pain, no palpitations, no edema, no shortness of breath Gastrointestinal: No new onset incontinence, normal bowel movements reported Genitourinary: No new onset incontinence Musculoskeletal: Low back pain, left knee pain, arm bilateral hip pain Psychiatric: [Normal mood/affect] Neurological: [Denies weakness in extremities], [denies balance issues] Objective:: Physical Exam: General: Alert and oriented x3, no acute distress, pleasant and cooperative Lungs: Respirations even and unlabored, symmetrical chest expansion Eyes: PERRL Musculoskeletal: Flexion and extension of lumbar [spine] somewhat guarded secondary to pain, [antalgic gait noted]; left SI is positive for LEIF, Oleg's, [place]'s, [place]'s, compression, and distraction. Limited range of motion of the left knee secondary to pain Neurological: Speech clear, no gross sensory deficit Assessment:: Degenerative disc disease of lumbar spine with lumbar radiculopathy symptoms, spinal stenosis with neurogenic claudication, sacroiliitis, osteoarthritis of the left knee Plan:: Patient has been having pain in her low back that radiates to the left leg. We will schedule her for a lumbar epidural steroid injection. She is not on any blood thinners. She is also complaining of left knee pain today. She does have osteoarthritis of the left knee. We have done several left knee intra-articular injections to provide 2 to 3 months of relief. We will refer the patient to Dr. Whitten for further eval. Follow-up after injection. If the patient gets minimal relief from the lumbar epidural steroid injection, I have discussed with the patient that we can schedule her for a left SI injection. I also discussed with the patient that she is a good candidate for the sacroiliac joint stabilization procedure with the cornerloc system. She is not ready to move forward with this procedure. We are also waiting to see what Dr. Whitten wants to do. Patient has been instructed to contact the clinic with any concerns before the next appointment. Dr. Velez has reviewed this note and agrees with this plan of care. This note was dictated using voice recognition software and make contain errors or omissions. [facility] History Medical History: Reports:: Gastroesophageal Reflux Disease(GERD), Hepatitis, Hyperlipidemia, Hypertension Eliud
[2021-10-30 12:13] VITALS: BP 132/72; PULSE 58; RESP 18; TEMP 36.3; O2SAT 96; BMI 38.0
== END ==
PROVIDERS: Visit Provider Student in an Organized Health Care Education/Training Program
DX: M51.16 Intervertebral disc disorders with radiculopathy, lumbar region (principal); M46.1 Sacroiliitis, not elsewhere classified; M17.12 Unilateral primary osteoarthritis, left knee; M48.062 Spinal stenosis, lumbar region with neurogenic claudication
CPT/HCPCS: 99212; G0463

== ENCOUNTER 2021-11-03 07:55 | Day surgery (SDC) | payer MEDICARE, SELFPAY ==
[2021-11-03 08:16] VITALS: BP 168/74; PULSE 76; RESP 18; TEMP 36.3; O2SAT 95; BMI 38.0
[2021-11-03 08:31] VITALS: BP 183/74; PULSE 65; O2SAT 100
--- NOTE | 2021-11-03 08:36 | P.PCN_ITS ---
- Procedure Date: 11/03/21 Time: 08:36 Anesthesiologist:: Kvng Tejeda CRNA Complications:: None Pre-procedure Diagnosis:: Degenerative disc disease lumbar spine multilevels. Lumbar radiculopathy symptoms. Post-procedure Diagnosis:: Same Indications for Procedure:: Very pleasant 71-year-old female that returns our clinic today for repeat lumbar epidural steroid injection at the L4-5 level. Patient has had these in the past with significant improvement. She complains of low back pain as well as bilateral hip and leg radicular symptoms. She rates her pain today 7/10. Procedure Details:: Procedure: Lumbar epidural steroid injection under fluoroscopy Informed consent was obtained and the risks and benefits of the procedure were explained to the patient. The patient was taken to the procedure room and noninvasive monitors placed, including noninvasive blood pressure cuff and pulse oximeter. The back was viewed using C-arm Fluoroscopy and prepped using Betadine as a cleansing solution and the L4-L5 interspace was palpated. Skin and subcutaneous tissues were anesthetized using lidocaine 1.5% and a 25-gauge needle. After this, an 18-gauge Touhy epidural needle was placed into the L4-L5 interspace and advanced using fluoroscopic guidance and loss of resistance to air until the epidural space was encountered. After confirmation of needle plac ement in the epidural space, with dye, a solution containing lidocaine 1.5%, 4 mL and Depo-Medrol 80 mg were incrementally injected into the lumbar epidural space. The patient tolerated the procedure well with no complications. The patient was observed in the Pain Clinic and then discharged home neurologically intact. Plan and Disposition:: Patient was discharged without incident.
[2021-11-03 08:40] VITALS: BP 154/71; PULSE 56; RESP 18; O2SAT 99
== END 2021-11-03 08:40 | disposition home or self-care (01) ==
LOC: SC.PAINP 07:56
PROVIDERS: PCP Internal Medicine Adolescent Medicine; Visit Provider Nurse Anesthetist, Certified Registered
DX: M51.16 Intervertebral disc disorders with radiculopathy, lumbar region (principal)
CPT/HCPCS: 62323; J1040

== ENCOUNTER 2022-01-09 09:52 | Day surgery (SDC) | payer MEDICARE, SELFPAY ==
[2022-01-09 10:03] VITALS: BP 145/54; PULSE 57; RESP 18; TEMP 36.6; O2SAT 95; BMI 39.0
[2022-01-09 10:24] VITALS: BP 144/56; PULSE 55; RESP 18; O2SAT 96
[2022-01-09 10:25] VITALS: BP 164/54; PULSE 58; RESP 18; O2SAT 97
[2022-01-09 10:30] VITALS: BP 149/78; PULSE 63; RESP 18; O2SAT 96
--- NOTE | 2022-01-09 10:51 | EXP.PAIN.PRO ---
Procedure Date: 01/09/22 Time: 10:51 Anesthesiologist:: Kvng Tejeda CRNA Complications:: None Pre-procedure Diagnosis:: Degenerative disc disease lumbar spine multilevels. Lumbar radiculopathy symptoms Post-procedure Diagnosis:: Same. Indications for Procedure:: Very pleasant 71-year-old female that has had significant improvement terms of low back pain as well as bilateral hip and leg radicular symptoms following lumbar epidural steroid injections in the past. She is requesting a repeat lumbar epidural steroid injection at the L4-5 level. Procedure Details:: Procedure: Lumbar epidural steroid injection under fluoroscopy Informed consent was obtained and the risks and benefits of the procedure were explained to the patient. The patient was taken to the procedure room and noninvasive monitors placed, including noninvasive blood pressure cuff and pulse oximeter. The back was viewed using C-arm Fluoroscopy and prepped using Betadine as a cleansing solution and the L4-L5 interspace was palpated. Skin and subcutaneous tissues were anesthetized using lidocaine 1.5% and a 25-gauge needle. After this, an 18-gauge Touhy epidural needle was placed into the L4-L5 interspace and advanced using fluoroscopic guidance and loss of resistance to air until the epidural space was encountered. After confirmation of needle placement in the epidural space, with dye, a solution containing lidocaine 1.5%, 4 mL and Depo-Medrol 80 mg were incrementally injected into the lumbar epidural space. The patient tolerated the procedure well with no complications. The patient was observed in the Pain Clinic and then discharged home neurologically intact. Plan and Disposition:: Patient was discharged without incident
== END 2022-01-09 10:30 | disposition home or self-care (01) ==
LOC: SC.PAINP 09:53
PROVIDERS: PCP Internal Medicine Adolescent Medicine; Visit Provider Nurse Anesthetist, Certified Registered
DX: M51.16 Intervertebral disc disorders with radiculopathy, lumbar region (principal)
CPT/HCPCS: 62323; J1040

== ENCOUNTER → 2022-02-27 09:33 | Outpatient (POV) | payer MEDICARE, SELFPAY ==
[2022-02-27 10:13] VITALS: BP 130/63; PULSE 53; RESP 18; O2SAT 95; BMI 39.0
--- NOTE | 2022-02-27 10:46 | EXP.PAIN.SOA ---
[facility] Pain Management SOAP Note Subjective:: Patient is a pleasant 71-year-old female who presents today for follow-up of lumbar epidural steroid injection at L4-L5 on 01/09/2022. We are currently treating the patient for degenerative disc disease of lumbar spine multilevels with lumbar radiculopathy symptoms, chronic left-sided knee pain, bilateral sacroiliitis. Today the patient states she has had at least 50% improvement following this injection and still feels like it is helping however it is starting to wear off. Patient states her pain today is a 2 out of 10. Patient denies any new trauma or injury. Patient denies any change in location or type of pain she experiences. Patient has done multiple injections in the past that provided significant improvement of upwards of even 80 to 90% relief. Patient typically gets approximately 3 months worth of relief with each injection and is interested in scheduling her next epidural at today's visit. Patient has also gotten left intra-articular knee injections in the past that provided 2 to 3 months of relief as well. Patient states she underwent a total left knee replacement on January [address] Youngblood. Patient states she has done well with this procedure and arrives today with no ambulation devices. Patient states that she has been dismissed by physical therapy due to completing the therapy and doing so well. Patient continues to do at home exercising and stretching. Patient does use etodolac and Tylenol arthritis as needed for her pain symptoms. Patient is not currently on any scheduled medications. Her Vern is [id number]. It is been reviewed and appropriate. Review of Systems: General: No recent weight changes, no fever, no sleep disturbances Respiratory: No cough, no shortness of air, no recurring pulmonary infections Cardiovascular/peripheral vascular: No chest pain, no palpitations, no edema, no shortness of breath Gastrointestinal: No new onset incontinence, normal bowel movements reported Genitourinary: No new onset incontinence Musculoskeletal: Low back pain, leg pain Psychiatric: [Normal mood/affect] Neurological: [Denies weakness in extremities], [denies balance issues] Objective:: Physical Exam: General: Alert and oriented x3, no acute distress, pleasant and cooperative Lungs: Respirations even and unlabored, symmetrical chest expansion Eyes: PERRL Musculoskeletal: Flexion and extension of lumbar [spine] somewhat guarded secondary to pain, [antalgic gait noted] Neurological: Speech clear, no gross sensory deficit Assessment:: Degenerative disc disease of lumbar spine with lumbar radiculopathy symptoms, chronic left knee pain, bilateral sacroiliitis Plan:: Patient is experiencing worsening pain in her low back that radiates into her bilateral lower extremities. Patient did have limited range of motion of her lumbar spine during today's visit. I have discussed with the patient regarding have a repeat lumbar epidural steroid injection. Her previous epidurals have provided significant improvement of her pain symptoms lasting on average 3 months. Risk and benefits were discussed with the patient. She would like to proceed forward with this plan of care. We will schedule this patient for a LESI L4-L5. Patient is not on any blood thinners. Patient has been instructed to contact the clinic with any concerns before the next appointment. Dr. Velez has reviewed this note and agrees with this plan of care. This note was dictated using voice recognition software and make contain errors or omissions. [facility] Medical History (Updated 02/06/22 @ 14:49 by Bonnie Chery APRN) Hypertension Sleep apnea Surgical History H/O total hysterectomy Family History Other Cancer Coronary artery disease Diabetes FHx: mental illness Heart attack Hypertension Stroke
== END ==
PROVIDERS: PCP Internal Medicine Adolescent Medicine; Visit Provider Nurse Practitioner Family
DX: M51.16 Intervertebral disc disorders with radiculopathy, lumbar region (principal); M46.1 Sacroiliitis, not elsewhere classified; M25.562 Pain in left knee; G89.29 Other chronic pain
CPT/HCPCS: 99212; G0463

== ENCOUNTER 2022-03-02 14:38 | Day surgery (SDC) | payer MEDICARE, SELFPAY ==
[2022-03-02 14:49] VITALS: BP 160/61; BP 177/87; PULSE 59; PULSE 67; RESP 20; TEMP 36.2; O2SAT 97; BMI 39.0
[2022-03-02 14:56] VITALS: BP 165/62; PULSE 60; RESP 18; O2SAT 97
[2022-03-02 14:57] VITALS: BP 165/62; PULSE 60; RESP 18; O2SAT 98
--- NOTE | 2022-03-02 15:24 | EXP.PAIN.PRO ---
Procedure Date: 03/02/22 Time: 15:00 Anesthesiologist:: Kvng Tejeda CRNA Complications:: None Pre-procedure Diagnosis:: Degenerative disc disease lumbar spine multilevels lumbar radiculopathy. Post-procedure Diagnosis:: Same. Indications for Procedure:: Patient is a very pleasant 71-year-old female that comes to our clinic today for repeat lumbar epidural steroid injection L4-5 level. She has had significant improvement terms of her low back pain as well as bilateral hip leg radicular symptoms with each injection. She describes her low back pain as constant, dull, aching at times. Also, bilateral hip and leg radicular symptoms. Procedure Details:: Procedure: Lumbar epidural steroid injection under fluoroscopy Informed consent was obtained and the risks and benefits of the procedure were explained to the patient. The patient was taken to the procedure room and noninvasive monitors placed, including noninvasive blood pressure cuff and pulse oximeter. The back was viewed using C-arm Fluoroscopy and prepped using Chloraprep as a cleansing solution and the L4-L5 interspace was palpated. Skin and subcutaneous tissues were anesthetized using lidocaine 1.5% and a 25-gauge needle. After this, an 18-gauge Touhy epidural needle was placed into the L4-L5 interspace and advanced using fluoroscopic guidance and loss of resistance to air until the epidural space was encountered. After confirmation of needle placement in the epidural space, with dye, a solution containing normal saline, 3 mL and Depo-Medrol 80 mg were incrementally injected into the lumbar epidural space. The patient tolerated the procedure well with no complications. The patient was observed in the Pain Clinic and then discharged home neurologically intact. Plan and Disposition:: Patient was discharged without incident
== END 2022-03-02 15:08 | disposition home or self-care (01) ==
LOC: SC.PAINP 14:39
PROVIDERS: PCP Internal Medicine Adolescent Medicine; Visit Provider Nurse Anesthetist, Certified Registered
DX: M51.16 Intervertebral disc disorders with radiculopathy, lumbar region (principal)
CPT/HCPCS: 62323; J1040

== ENCOUNTER → 2022-08-29 09:27 | Outpatient (POV) | payer MEDICARE, SELFPAY ==
[2022-08-29 09:37] VITALS: BP 158/66; PULSE 63; RESP 20; O2SAT 94; BMI 39.0
--- NOTE | 2022-08-29 10:17 | EXP.PAIN.SOA ---
[facility] Pain Management SOAP Note Subjective:: Patient is a pleasant 72-year-old female who presents today for follow-up. We are currently treating the patient for degenerative disc disease of lumbar spine multilevels with lumbar radiculopathy symptoms, chronic bilateral knee pain, bilateral sacroiliitis. Today she rates her pain a 6 out of 10. Patient denies any new trauma or injury. Patient denies any change location or type of pain she experiences. Patient did have her knees replaced and states her knee pain is much better and not bothering her anymore. Patient does state that her low back pain continues to be a very problematic area with radiating symptoms to her lower extremities and describes it as an aching, throbbing sensation that is worse with increased activity. She states she frequently cannot tolerate prolonged standing or walking due to the pain. Patient does also have to lean over to do the dishes or even shopping at [facility] has to require a shopping cart to get by. She states it does interfere with her ability to perform activities of daily living such as cooking and cleaning patient has been in [place] for the last few months and is just returning. Patient has had lumbar epidural steroid injections in the past that have given anywhere from 50 to 90% relief and very in how long they last. Patient has done physical therapy with minimal improvement of her back pain. She continues to do at home exercising and stretching with no additional relief. Patient is managed with etodolac and Tylenol arthritis as needed. She is not on any scheduled medications. Her Vern is [id number]. Its been reviewed and appropriate. Review of Systems: General: No recent weight changes, no fever, no sleep disturbances Respiratory: No cough, no shortness of air, no recurring pulmonary infections Cardiovascular/peripheral vascular: No chest pain, no palpitations, no edema, no shortness of breath Gastrointestinal: No new onset incontinence, normal bowel movements reported Genitourinary: No new onset incontinence Musculoskeletal: Low back pain, leg pain Psychiatric: [Normal mood/affect] Neurological: [Denies weakness in extremities], [denies balance issues] Objective:: Physical Exam: General: Alert and oriented x3, no acute distress, pleasant and cooperative Lungs: Respirations even and unlabored, symmetrical chest expansion Eyes: PERRL Musculoskeletal: Flexion and extension of lumbar [spine] somewhat guarded secondary to pain, [antalgic gait noted] positive shopping cart sign Neurological: Speech clear, no gross sensory deficit Assessment:: Degenerative disc disease of lumbar spine multilevels with lumbar radiculopathy symptoms, chronic bilateral knee pain, bilateral sacroiliitis, spinal stenosis with neurogenic claudication symptoms Plan:: Patient is experiencing significant pain in her low back with radiating symptoms into her lower extremities. Patient had limited range of motion of her lumbar spine with a positive shopping cart sign that is appropriate for spinal stenosis with neurogenic claudication symptoms. I have discussed with the patient that she may benefit from a minimally invasive lumbar decompression procedure in the future based off of her symptoms. I have counseled her that we can do a lumbar epidural steroid injection with epidurogram to confirm if this procedure is appropriate. Risk and benefits of the lumbar epidural steroid injection were explained to the patient and she would like to proceed forward with this plan of care. Patient is not on any blood thinners. I did give her educational handouts on the mild procedure during today's visit. We will schedule her for a lumbar epidural steroid injection of L4-L5 with epidurogram. Patient has been instructed to contact the clinic with any concerns before the next appointment. Dr. Velez has reviewed this note and agrees with this plan of care. This note was dictated using voice recognition software and make
== END ==
PROVIDERS: PCP Internal Medicine Adolescent Medicine; Visit Provider Nurse Practitioner Family
DX: M51.16 Intervertebral disc disorders with radiculopathy, lumbar region (principal); M46.1 Sacroiliitis, not elsewhere classified; M48.062 Spinal stenosis, lumbar region with neurogenic claudication; M25.561 Pain in right knee; M25.562 Pain in left knee; G89.29 Other chronic pain
CPT/HCPCS: 99212; G0463

== ENCOUNTER 2022-09-11 09:00 | Day surgery (SDC) | payer MEDICARE, SELFPAY ==
[2022-09-11 09:12] VITALS: BP 163/92; PULSE 64; RESP 18; TEMP 36.6; O2SAT 96; BMI 39.0
[2022-09-11 09:18] VITALS: BP 190/69; PULSE 66; RESP 18; O2SAT 98
--- NOTE | 2022-09-11 09:26 | P.PCN_ITS ---
Procedure Date: 09/11/22 Time: 09:20 Anesthesiologist:: Kvng Tejeda CRNA Complications:: None Pre-procedure Diagnosis:: Degenerative disc lumbar spine multilevels. Lumbar radiculopathy. Lumbar spinal stenosis. Lumbar spondylolisthesis. Post-procedure Diagnosis:: Same. Indications for Procedure:: Very pleasant 72-year-old female that comes our clinic today for lumbar epidural steroid injection at the L4-5 level with epidurogram. Patient complains of low back pain as well as bilateral hip and leg radicular symptoms. She rates her pain today 09/22 Procedure Details:: Procedure: Lumbar epidural steroid injection under fluoroscopy Informed consent was obtained and the risks and benefits of the procedure were explained to the patient. The patient was taken to the procedure room and noninvasive monitors placed, including noninvasive blood pressure cuff and pulse oximeter. The back was viewed using C-arm Fluoroscopy and prepped using Chloraprep as a cleansing solution and the L4-L5 interspace was palpated. Skin and subcutaneous tissues were anesthetized using lidocaine 1.5% and a 25-gauge needle. After this, an 18-gauge Touhy epidural needle was placed into the L4-L5 interspace and advanced using fluoroscopic guidance and loss of resistance to air until the epidural space was encountered. After confirmation of needle placement in the epidural space, with dye, a solution containing normal saline, 3 mL and Depo-Medrol 80 mg were incrementally injected into the lumbar epidural space. The patient tolerated the procedure well with no complications. The patient was observed in the Pain Clinic and then discharged home neur ologically intact. Plan and Disposition:: Patient was discharged without incident.
[2022-09-11 09:27] VITALS: BP 117/63; PULSE 67; RESP 18; O2SAT 96
== END 2022-09-11 09:27 | disposition home or self-care (01) ==
PROVIDERS: PCP Internal Medicine Adolescent Medicine; Visit Provider Nurse Anesthetist, Certified Registered
DX: M51.16 Intervertebral disc disorders with radiculopathy, lumbar region (principal); M48.061 Spinal stenosis, lumbar region without neurogenic claudication; M43.16 Spondylolisthesis, lumbar region
CPT/HCPCS: 62323; J1040; Q9966

== ENCOUNTER → 2022-09-20 07:25 | Outpatient (CLI) | payer MEDICARE, SELFPAY ==
[2022-09-20 08:15] LABS: Basophils % 0.6 % (0.1-2.0); Eosinophils # 0.4 K/mm3 (0.0-0.4); Eosinophils % 5.3 % (0.1-12.0); Hematocrit 41.6 % (37.0-47.0); Hemoglobin 13.5 g/dL (12.2-16.2); Lymphocytes # 1.1 K/mm3 (0.7-4.5); Lymphocytes % 16.7 % (10-50); Mean Corpuscular HGB Conc 32.4 g/dL (31.8-35.4); Mean Corpuscular Volume 89.5 fl (81-99); Mean Platelet Volume 8.6 fl (7.4-10.4); Monocytes # 0.3 K/mm3 (0.1-1.0); Monocytes % 4.3 % (1.7-9.3); Neutrophils # 4.9 K/mm3 (1.8-7.8); Neutrophils % 73.2 % (37.0-80.0); Platelet Count 197 K/mm3 (142-424); Red Blood Count 4.65 M/mm3 (4.20-5.40); Red Cell Distribution Width 13.7 % (11.5-17.5); White Blood Count 6.7 K/mm3 (4.8-10.8)
[2022-09-20 08:19] LABS: Alanine Aminotransferase 28 U/L (12-78); Albumin Level 4.1 g/dl (3.5-5.0); Albumin/Globulin Ratio 1.5 (1.1-1.8); Alkaline Phosphatase 99 U/L (38-126); Anion Gap 13.7 mEq/L (5-15); Aspartate Amino Transferase 31 U/L (14-36); Bilirubin,Total 0.7 mg/dl (0.2-1.3); Blood Urea Nitrogen 28 mg/dl (7-17); Calcium 9.5 mg/dl (8.4-10.2); Carbon Dioxide 29 mmol/L (22.0-30.0); Chloride 102 mmol/L (98-107); Chol/HDL Ratio 4.2 (1-3.5); Cholesterol 238 mg/dl (140-200); Estimated Glomerular Filt Rate 82 ml/min (>60); GFR (African American) 99 ML/MIN (>60); Globulin 2.7 g/dL (1.3-3.2); Glucose 99 mg/dl (74-100); HDL Cholesterol 57 mg/dl (40-60); Potassium 3.7 mmoL/L (3.5-5.1); Sodium 141 mmol/L (136-145); Total Protein,Serum 6.8 g/dl (6.3-8.2); Triglycerides 169 mg/dl (30-150); VLDL Cholesterol 34 mg/dL (0-40)
[2022-09-20 08:30] LABS: Direct LDL Cholesterol 126.97 mg/dL (100-129)
[2022-09-20 08:36] LABS: Triiodothryronine (T3) Uptake 31 % (23.5-40.5)
[2022-09-20 08:37] LABS: 25-OH Vitamin D, Total 38.3 ng/mL (30-100)
[2022-09-20 08:50] LABS: Thyroid Stimulating Hormone 1.49 uIU/mL (0.465-4.68)
[2022-09-21 12:25] LABS: Free Thyroxine Index 2.7 ug/dL (5.93-13.13); T4 (Thyroxine) 8.7 ug/dl (5.53-11.0)
== END ==
PROVIDERS: PCP Nurse Practitioner Family; Visit Provider Nurse Practitioner Family
DX: E04.9 Nontoxic goiter, unspecified (principal); I10 Essential (primary) hypertension; E78.5 Hyperlipidemia, unspecified; E55.9 Vitamin D deficiency, unspecified
CPT/HCPCS: 36415; 80053; 80061; 82306; 84436; 84443; 84479; 85025

== ENCOUNTER → 2022-09-26 09:38 | Outpatient (POV) | payer MEDICARE, SELFPAY ==
--- NOTE | 2022-09-26 09:58 | EXP.PAIN.SOA ---
[facility] Pain Management SOAP Note Subjective:: Patient is a pleasant 72-year-old female who presents today for follow-up of lumbar epidural L4-L5 with epidurogram on 09/11/2022.? We are currently treating the patient for degenerative disc disease of lumbar spine multilevels with lumbar radiculopathy symptoms, spinal stenosis with neurogenic claudication symptoms, chronic bilateral knee pain, bilateral sacroiliitis.? Today she rates her pain a 2 out of 10.? Patient denies any new trauma or injury.? Patient denies any change location or type of pain she experiences.? She states that the injection has helped at least 50% on taking away the sharp sensation she was experiencing. She does state that she still has pain with increased activity or motions of twisting. She states she does frequently have to stop and take multiple breaks due to her pain is aggravated by increased walking or standing. Patient does frequently have to lean in order to get relief or sit down. She states it does interfere with her ability to perform activities of daily living such as cooking and cleaning.? Patient has had lumbar epidural steroid injections in the past that have given anywhere from 50 to 90% relief.? Patient has done physical therapy with minimal improvement of her back pain.? She continues to do at home exercising and stretching with no additional relief.? Patient is managed with etodolac and Tylenol arthritis as needed.? She is not on any scheduled medications.? Her Vern is [id number].? Its been reviewed and appropriate. Review of Systems: General: No recent weight changes, no fever, no sleep disturbances Respiratory: No cough, no shortness of air, no recurring pulmonary infections Cardiovascular/peripheral vascular: No chest pain, no palpitations,? no edema, no shortness of breath Gastrointestinal: No new onset incontinence, normal bowel movements reported Genitourinary: No new onset incontinence Musculoskeletal: Low back pain, leg pain Psychiatric: [Normal mood/affect] Neurological: [Denies weakness in extremities], [denies balance issues] Objective:: Physical Exam: General: Alert and oriented x3, no acute distress, pleasant and cooperative Lungs: Respirations even and unlabored, symmetrical chest expansion Eyes: PERRL Musculoskeletal: Flexion and extension of lumbar [spine] somewhat guarded secondary to pain, [antalgic gait noted] Neurological: Speech clear, no gross sensory deficit Assessment:: Degenerative disc disease of lumbar spine with lumbar radiculopathy symptoms, spinal stenosis with neurogenic claudication, chronic bilateral knee pain, bilateral sacroiliitis Plan:: Patient continues to experience significant pain in her low back and legs that is made worse with walking or standing. Patient's epidurogram did show significant spinal stenosis at L3-L4 and L4-L5. I have reviewed with the patient that she would be a beneficial candidate for the minimally invasive lumbar decompression. Patient has tried and failed conservative therapy such as oral medications, heat and ice, topicals, physical therapy, injection therapy, at home stretching and exercise for longer than 6 weeks. Risk and benefits were discussed with the patient and she would like to proceed forward with this plan of care. Patient has already been given educational handouts related to this procedure. Patient is not on any blood thinners. We will schedule her for a MILD L3-L4 and L4-L5 bilaterally. Patient has been instructed to contact the clinic with any concerns before the next appointment. Dr. Velez has reviewed this note and agrees with this plan of care. This note was dictated using voice recognition software and make contain errors or omissions. [facility] Disclaimer: The information contained in this section may have been updated after the patient was seen, as this information can be updated by other users. Medical History Hypertension Sl
[2022-09-26 10:09] VITALS: BP 148/67; PULSE 63; RESP 18; TEMP 36.6; O2SAT 93; BMI 39.0
== END ==
PROVIDERS: PCP Internal Medicine Adolescent Medicine; Visit Provider Nurse Practitioner Family
DX: M51.16 Intervertebral disc disorders with radiculopathy, lumbar region (principal); M48.062 Spinal stenosis, lumbar region with neurogenic claudication; M46.1 Sacroiliitis, not elsewhere classified; M25.561 Pain in right knee; M25.562 Pain in left knee
CPT/HCPCS: 99212; G0463

== ENCOUNTER → 2022-11-07 09:07 | Outpatient (CLI) | payer MEDICARE, SELFPAY ==
[2022-11-07 09:40] LABS: Basophils % 0.6 % (0.1-2.0); Eosinophils # 0.3 K/mm3 (0.0-0.4); Eosinophils % 5.4 % (0.1-12.0); Hematocrit 40.3 % (37.0-47.0); Hemoglobin 13.3 g/dL (12.2-16.2); Lymphocytes # 1.1 K/mm3 (0.7-4.5); Lymphocytes % 19.5 % (10-50); Mean Corpuscular HGB Conc 33.1 g/dL (31.8-35.4); Mean Corpuscular Volume 87.6 fl (81-99); Mean Platelet Volume 8.5 fl (7.4-10.4); Monocytes # 0.3 K/mm3 (0.1-1.0); Monocytes % 5.4 % (1.7-9.3); Neutrophils # 3.8 K/mm3 (1.8-7.8); Neutrophils % 69.1 % (37.0-80.0); Platelet Count 196 K/mm3 (142-424); Red Cell Distribution Width 13.6 % (11.5-17.5); White Blood Count 5.5 K/mm3 (4.8-10.8)
[2022-11-07 10:54] LABS: Anion Gap 10.9 mEq/L (5-15); Blood Urea Nitrogen 31 mg/dl (7-17); Calcium 9.4 mg/dl (8.4-10.2); Carbon Dioxide 26 mmol/L (22.0-30.0); Chloride 107 mmol/L (98-107); Estimated Glomerular Filt Rate 70 ml/min (>60); GFR (African American) 85 ML/MIN (>60); Glucose 95 mg/dl (74-100); Potassium 3.9 mmoL/L (3.5-5.1); Sodium 140 mmol/L (136-145)
== END ==
PROVIDERS: PCP Internal Medicine Adolescent Medicine; Visit Provider Anesthesiology
DX: M43.26 Fusion of spine, lumbar region (principal); Z01.812 Encounter for preprocedural laboratory examination
CPT/HCPCS: 36415; 80048; 85025

== ENCOUNTER 2022-11-09 06:13 | Day surgery (SDC) | payer MEDICARE, SELFPAY ==
[2022-11-06 14:22] VITALS: BMI 39.0
[2022-11-09 06:33] VITALS: BP 138/65; PULSE 58; RESP 18; TEMP 36.2; O2SAT 94
--- NOTE | 2022-11-09 06:56 | P.PNANES_ITS ---
[facility] Disclaimer: The information contained in this section may have been updated after the patient was seen, as this information can be updated by other users. Medical History Hypertension Sleep apnea Surgical History H/O total hysterectomy History of total knee arthroplasty Status post fusion of sacroiliac joint Family History Other Cancer Coronary artery disease Diabetes FHx: mental illness Heart attack Hypertension Stroke Social History (Updated 11/09/22 @ 06:41 by Sachi Loyola RN) Smoking Status: Never smoker second hand exposure: No alcohol intake: never substance use type: denies use current occupational status: retired Travel in the last 8 weeks: [place] the [place] household members: significant other housing: house current occupational exposures/hazards: No caffeine: Yes [facility] Anesthesia Checklist Patient Identification Patient Identification: Arm Band and Verbal (Name & ) Structural Data Admitted From: Home Planned Operative Procedure/s: Lumbar Decompression Consent for Planned Operative Procedure(s) Verified: Yes Verified Documents: Surgical Consent NPO Status Verified Time NPO: 00:00 Additional verifications Anesthesia Reactions: No Hx Blood Transfusions: Yes Blood Transfusion Reaction: No Airway Assessment C-Spine Mobility Assessed: Yes TMJ Mobility Assessed: Yes Dentition: Partials Neurological Assessment Level of Consciousness: Awake and Alert Numbness or tingling in extremities: No Anesthesia Plan Anesthesia Risk discussed: Yes ASA Class: II Anesthesia Type: IV sedation
[2022-11-09 08:58] VITALS: BP 123/67; PULSE 67; RESP 14; TEMP 36.3; O2SAT 93
[2022-11-09 09:08] VITALS: BP 129/70; PULSE 67; RESP 15; O2SAT 93
[2022-11-09 09:18] VITALS: BP 132/70; PULSE 69; RESP 16; O2SAT 95
--- NOTE | 2022-11-09 09:21 | P.OP_ITS ---
Date of procedure: 11/09/22 Pre-op Diagnosis:: Degenerative disc disease of lumbar spine with lumbar spinal stenosis and neurogenic claudication symptoms Post-op Diagnosis:: Same Procedure performed:: Minimally invasive lumbar decompression bilateral L3-L4 and L4-L5 under fluoroscopy Surgeon:: French Velez MD PARTY PLANNER:: Other Anesthesia: MAC Estimated blood loss (mL): 1 Clinical Note:: This patient is a pleasant 72-year-old white female who we are treating for low back pain with lumbar spinal stenosis and neurogenic claudication symptoms. She only gets temporary relief with epidural steroid injections. We will plan on minimally invasive lumbar decompression bilateral L3-L4 and L4-L5 today. Operative findings:: None Operative note:: Informed consent was obtained and the risk and benefits of the procedure was explained to the patient. The patient was taken to the operating room and placed prone on the procedure table. The patient was prepped and draped in sterile fashion. C-arm fluoroscopy was used to view the lumbar spine. The skin and subcutaneous tissues were anesthetized using lidocaine. A epidural needle was inserted and advanced into the L3-L4 interspace. After confirmation of needle placement in the epidural space, dye was injected in a contralateral oblique view. There was an epidurogram seen at L3-L4 and L4-L5. Significant stenosis was seen at L3-L4 and L4-L5. The skin and subcutaneous tissues again were anesthetized using lidocaine. An incision was made and a access trocar was inserted and advanced to contact at the superior aspect of the L4 lamina on the left side. And a contralateral oblique view the side was viewed. Using a bone rongeur and tissue sculptor we debulked bone from the L3-L4 and L4-L5 interspace on the left side. We then used the tissue sculptor to debulk ligament at the L3-L4 and L4-L5 interspace on the left side. We then moved over to the right side and debulked bone and ligament from L3-L4 and L4-L5 on the right side. There is opening of the stenosis at L3-L4 and L4-L5 bilaterally. The access trocar was removed. A total of 3 mL's of dye was used. There is good spread of dye above and below this level as well. We injected 80 mg Depo-Medrol through the epidural needle. The epidural needle was removed and dressings were placed. This encounter for exam is for normal comparison and control in a clinical research program Patient was taken to recovery in stable condition. Patient was discharged home neurologically intact and with good relief of pain symptoms. Plan and disposition: We will follow-up with this patient in 2 weeks. Will reevaluate symptoms at that time. Condition: stable Disposition: PACU Complications:: None
[2022-11-09 09:28] VITALS: BP 125/71; PULSE 71; RESP 17; O2SAT 93
[2022-11-09 09:49] VITALS: BP 132/65; PULSE 70; RESP 18; O2SAT 94
== END 2022-11-09 10:00 | disposition home or self-care (01) ==
PROVIDERS: PCP Internal Medicine Adolescent Medicine; Visit Provider Anesthesiology
DX: M48.062 Spinal stenosis, lumbar region with neurogenic claudication (principal); Z00.6 Encounter for examination for normal comparison and control in clinical research program
CPT/HCPCS: 0275T; 96374; C1889; J1040; J2405

== ENCOUNTER → 2022-11-19 11:19 | Outpatient (POV) | payer MEDICARE, SELFPAY ==
[2022-11-19 11:27] VITALS: BP 152/68; PULSE 58; RESP 18; O2SAT 96; BMI 39.0
--- NOTE | 2022-11-19 11:37 | EXP.PAIN.SOA ---
[facility] Pain Management SOAP Note Subjective:: Patient is a pleasant 72-year-old female who presents today for follow-up of minimally invasive lumbar decompression of L3-L4 and L4-L5 on 11/09/2022.? We are currently treating the patient for degenerative disc disease of lumbar spine multilevels with lumbar radiculopathy symptoms, spinal stenosis with neurogenic claudication symptoms, chronic bilateral knee pain, bilateral sacroiliitis, status post minimally invasive lumbar decompression L3-L4 and L4-L5 bilaterally.? Today she rates her pain a 0 out of 10.? She states that she does feel like this procedure has provided significant improvement. Patient states she has been able to walk faster and feels like she has increased her distance that she is able to walk before sitting. Patient also states that standing is easier and that her posture may be better as well. She states that her pain has improved and overall she feels more functional. She states that she did take it easy after the first week following this procedure and spent a lot of time in her sewing room. She does also states she has been having some popping sensations along her left side however she has been unable to determine if it was her hip or her knee. She denies any pain at this site she just feels like as she is walking she will have the pressure sensation and then it pops. She is not on any scheduled medications.? Her Vern is [id number].? Its been reviewed and appropriate. Review of Systems: General: No recent weight changes, no fever, no sleep disturbances Respiratory: No cough, no shortness of air, no recurring pulmonary infections Cardiovascular/peripheral vascular: No chest pain, no palpitations,? no edema, no shortness of breath Gastrointestinal: No new onset incontinence, normal bowel movements reported Genitourinary: No new onset incontinence Musculoskeletal: Low back pain Psychiatric: [Normal mood/affect] Neurological: [Denies weakness in extremities], [denies balance issues] Objective:: Physical Exam: General: Alert and oriented x3, no acute distress, pleasant and cooperative Lungs: Respirations even and unlabored, symmetrical chest expansion Eyes: PERRL Musculoskeletal: Flexion and extension of lumbar [spine] somewhat guarded secondary to pain, [antalgic gait noted] Neurological: Speech clear, no gross sensory deficit Assessment:: Degenerative disc disease of lumbar spine with lumbar radiculopathy symptoms, spinal stenosis with neurogenic claudication symptoms, chronic bilateral knee pain, bilateral sacroiliitis, status post minimally invasive lumbar decompression L3-L4 and L4-L5 bilaterally Plan:: Patient has had significant improvement following her lumbar decompression. I have discussed with the patient if she is able to localize where her popping sensation is coming from when she is walking that we can do additional imaging. We will discuss this at future visits. I have counseled the patient to continue no swimming, hot tub use or tub bathing until her incision is fully healed. Patient will return to clinic in 1 month for reevaluation of symptoms and plan of care. Patient has been instructed to contact the clinic with any concerns before the next appointment. Dr. Velez has reviewed this note and agrees with this plan of care. This note was dictated using voice recognition software and make contain errors or omissions. [facility] Disclaimer: The information contained in this section may have been updated after the patient was seen, as this information can be updated by other users. Medical History Hypertension Sleep apnea Surgical History H/O total hysterectomy History of total knee arthroplasty Status post fusion of sacroiliac joint Family History Other Cancer Coronary artery disease Diabetes FHx: mental
== END ==
PROVIDERS: PCP Internal Medicine Adolescent Medicine; Visit Provider Nurse Practitioner Family
DX: M51.16 Intervertebral disc disorders with radiculopathy, lumbar region (principal); M48.062 Spinal stenosis, lumbar region with neurogenic claudication; M25.561 Pain in right knee; M25.562 Pain in left knee; G89.29 Other chronic pain; M46.1 Sacroiliitis, not elsewhere classified; M96.1 Postlaminectomy syndrome, not elsewhere classified
CPT/HCPCS: 99212; G0463

== ENCOUNTER → 2022-12-24 10:05 | Outpatient (POV) | payer MEDICARE, SELFPAY ==
--- NOTE | 2022-12-24 10:28 | EXP.PAIN.SOA ---
[facility] Pain Management SOAP Note Subjective:: Patient is a pleasant 72-year-old female who presents today for 1 month follow-up. We are currently treating the patient for degenerative disc disease of the lumbar spine with lumbar radiculopathy symptoms, spinal stenosis with neurogenic claudication symptoms, bilateral knee pain, bilateral sacroiliitis, status post minimally invasive lumbar decompression L3-L4 and L4-L5 bilaterally. Today she rates her pain a 7 out of 10. Patient states that she has been doing more work around her home and that last week she did have increased pain in her right arm that does radiate from her shoulder and her neck. She does state that it affects her range of motion in that extremity. Patient does describe this as a aching, throbbing sensation that is worse with increased activity. She has been going to the chiropractor and stated that it does hurt initially however it does make her pain better. Patient does state today that her entire arm is numb along the right side. She states she is scheduled to go back to the chiropractor today. Patient denies any recent cervical imaging. Patient does state that her low back pain has continued to do better following her minimally invasive lumbar decompression procedure back at the end of October. Patient states that she is able to walk for longer distances with decreased pain, able to stand up straighter and has had overall improvement in her pain. Patient does state that she does still continue to experience popping in her hips or her knees. Patient states she is unable to determine which location. She does also state that she has been experiencing significant vertigo and states that she does not have a ear nose and throat doctor. Patient states that her primary care has given her meclizine in the past and she uses this when it is significantly worse. Her Vern is [id number]. Its been reviewed and appropriate. Review of Systems: General: No recent weight changes, no fever, no sleep disturbances Respiratory: No cough, no shortness of air, no recurring pulmonary infections Cardiovascular/peripheral vascular: No chest pain, no palpitations, no edema, no shortness of breath Gastrointestinal: No new onset incontinence, normal bowel movements reported Genitourinary: No new onset incontinence Musculoskeletal: Neck pain, right arm pain, vertigo Psychiatric: [Normal mood/affect] Neurological: [Denies weakness in extremities], [denies balance issues] Objective:: Physical Exam: General: Alert and oriented x3, no acute distress, pleasant and cooperative Lungs: Respirations even and unlabored, symmetrical chest expansion Eyes: PERRL Musculoskeletal: Flexion and extension of cervical [spine] somewhat guarded secondary to pain, [antalgic gait noted] Neurological: Speech clear, no gross sensory deficit Assessment:: Degenerative disc disease of lumbar spine with lumbar radiculopathy symptoms, neck pain with cervical radiculopathy symptoms, knee pain, bilateral sacroiliitis, vertigo Plan:: Patient is experiencing significant pain in her neck along the right side with radiating symptoms to her right arm. Patient had limited range of motion of her cervical spine during today's visit. I have discussed with the patient that I will order x-ray and MRI imaging of her cervical spine without contrast. I have counseled the patient in future she may benefit from a cervical epidural however we will review this following her imaging. I have also discussed with the patient that I will send a referral to Dr. Moriah Coronado for evaluation for her vertigo and that it may be as simple as learning Ruiz maneuvers. Patient will return to clinic in 4 weeks for reevaluation of symptoms and plan of care. Patient has been instructed to contact the clinic with any concerns before the next appointment. Dr. Velez has reviewed this note and agrees with this plan of care. This note was dictated using voice recognition software and make co
[2022-12-24 11:04] VITALS: BP 149/76; PULSE 62; RESP 18; O2SAT 95; BMI 39.0
== END ==
PROVIDERS: PCP Internal Medicine Adolescent Medicine; Visit Provider Nurse Practitioner Family
DX: M51.16 Intervertebral disc disorders with radiculopathy, lumbar region (principal); M48.062 Spinal stenosis, lumbar region with neurogenic claudication; M25.561 Pain in right knee; M25.562 Pain in left knee; M46.1 Sacroiliitis, not elsewhere classified; Z98.890 Other specified postprocedural states; M54.12 Radiculopathy, cervical region; R42 Dizziness and giddiness
CPT/HCPCS: 99212; G0463

== ENCOUNTER → 2022-12-24 11:23 | Outpatient (CLI) | payer MEDICARE, SELFPAY ==
--- NOTE | 2022-12-24 11:28 | XR_ITS ---
FINAL REPORT TECHNIQUE: 5 views CLINICAL HISTORY: nECK PAIN, right arm pain COMPARISON: None FINDINGS: There is no fracture present. There is no malalignment. There is moderate degenerative change in the cervical spine. Multilevel osteophytes are present. There is mild retrolisthesis of C3 on C4. There is mild bilateral C4-5 neural foraminal narrowing. IMPRESSION: No acute process. Multilevel degenerative change as described. Reviewed, Interpreted and Dictated by Fransisco Mohr III, MD Transcribed by Martha Grady Authenticated and [facility]
== END ==
PROVIDERS: PCP Internal Medicine Adolescent Medicine; Visit Provider Nurse Practitioner Family
DX: M54.2 Cervicalgia (principal)
CPT/HCPCS: 72050; 99212; G0463

== ENCOUNTER → 2023-01-09 08:14 | Outpatient (CLI) | payer MEDICARE, SELFPAY ==
--- NOTE | 2023-01-09 08:15 | MR_ITS ---
FINAL REPORT TECHNIQUE: Multiplanar and multisequence imaging of the cervical spine was obtained. CLINICAL HISTORY: NECK PAIN, TINGLING DOWN RIGHT ARM, NO INJURY COMPARISON: None FINDINGS: There is reversal of the normal lordosis of the cervical spine. There is mild anterolisthesis of C2 on C3, likely degenerative.. Vertebral body height is preserved. Signal intensity within the substance of the spinal cord is normal. Bone marrow signal intensity is within normal limits. No acute paraspinal abnormality. C2/3: An annular bulge is present, with degenerative endplate change and facet osteoarthropathy. C3/4: An annular bulge is present, with degenerative endplate change and facet osteoarthropathy. There is mild canal stenosis present at this level, as well as severe right and moderate left neural foraminal narrowing. C4/5: An annular bulge is present, with degenerative endplate change and facet osteoarthropathy. There is mild canal stenosis present at this level, with severe right greater than left bilateral neural foraminal narrowing. C5/6: A central disc protrusion is present, with mild central stenosis. C6/7: There is no focal disc herniation, central stenosis or neural foraminal narrowing. C7/T1: There is no focal disc herniation, central stenosis or neural foraminal narrowing. IMPRESSION: Multilevel cervical degenerative change as described, with mild canal stenosis at multiple levels and moderate to severe neural foraminal narrowing predominantly at the C3-4 and C4-5 levels. Reviewed, Interpreted and Dictated by Misty Julio MD Transcribed by Martha Grady Authenticated and [facility]
== END ==
PROVIDERS: PCP Internal Medicine Adolescent Medicine; Visit Provider Nurse Practitioner Family
DX: M54.2 Cervicalgia (principal)
CPT/HCPCS: 72141; 76376

== ENCOUNTER → 2023-01-21 10:35 | Outpatient (POV) | payer MEDICARE, SELFPAY ==
[2023-01-21 10:52] VITALS: BP 165/93; PULSE 78; RESP 20; BMI 39.0
--- NOTE | 2023-01-21 11:26 | A.OFFVIS_ITS ---
[facility] Pain Management SOAP Note Subjective:: This patient is a very pleasant 72-year-old female that comes our clinic today for follow-up visit after having MILD procedure L3-4, L4-5 on 11/09/2022. Patient reported's 50+ percent better in her overall low back pain as well as bilateral hip and leg radicular symptoms. Patient able to ambulate for longer with minimal pain. She is able to continue with ADLs with minimal pain. Patient very pleased with results. Patient describes today some lumbar back pain as constant, dull, intermittent, aching. However, overall pain is much better. She rates her pain today 0/10. Patient is under the care of of EE for intermittent vertigo. An MRI of the cervical spine was ordered byEENT. I reviewed the cervical spine pathology with her today. Gave her a copy of the MRI report. Patient will return to see us as needed. Her Vern #[id number] is been reviewed and appropriate. Objective:: Patient is awake alert Hines x3. In no acute distress. Flexion-extension lumbar spine somewhat guarded secondary to pain. Deep tendon reflexes upper and lower extremities normal. Motor strength upper and lower extremities normal. There is no gross sensory deficit. Gait is normal. Assessment:: Degenerative disc lumbar spine multilevels. Lumbar radiculopathy. Lumbar spinal stenosis. Degenerative disc cervical spine multilevel. Disc bulge multilevel cervical spine. Cervical radiculopathy. Plan:: Patient return to see us as needed. [facility] Disclaimer: The information contained in this section may have been updated after the patient was seen, as this information can be updated by other users. Medical History Hypertension Sleep apnea Surgical History H/O total hysterectomy History of total knee arthroplasty Status post fusion of sacroiliac joint Family History Other Cancer Coronary artery disease Diabetes FHx: mental illness Heart attack Hypertension Stroke Social History (Updated 11/09/22 @ 06:41 by Sachi Loyola RN) Smoking Status: Never smoker second hand exposure: No alcohol intake: never substance use type: denies use current occupational status: other Travel in the last 8 weeks: None household members: significant other housing: house current occupational exposures/hazards: No caffeine: Yes
== END ==
PROVIDERS: PCP Internal Medicine Adolescent Medicine; Visit Provider Nurse Anesthetist, Certified Registered
DX: M51.16 Intervertebral disc disorders with radiculopathy, lumbar region (principal); M47.26 Other spondylosis with radiculopathy, lumbar region; M48.061 Spinal stenosis, lumbar region without neurogenic claudication; M50.10 Cervical disc disorder with radiculopathy, unspecified cervical region
CPT/HCPCS: 99212; G0463

== ENCOUNTER 2023-12-06 13:15 | Emergency (ER) | payer MEDICARE, SELFPAY ==
[2023-12-06 14:30] VITALS: BP 148/71; PULSE 57; RESP 20; TEMP 36.6; O2SAT 94
--- NOTE | 2023-12-06 15:10 | ED_ITS ---
Discharge Plan Disposition Patient Disposition: Home, Self-Care Condition: Good Prescriptions Prescriptions: New phenazopyridine [Pyridium] 200 mg tablet 200 mg PO Q8H 2 Days Qty: 6 0RF ciprofloxacin HCl [Cipro] 500 mg tablet 500 mg PO BID 7 Days Qty: 14 0RF ondansetron 4 mg Tablet,Disintegrating 4 mg PO Q8H PRN (Reason: Nausea) Qty: 12 0RF No Action omega 6-aso-wlq-fish oil [Fish Oil] 1,200 (144-216) mg capsule 1 cap PO DAILY amlodipine 5 mg tablet 5 mg PO DAILY propranolol 40 MG tablet 20 mg PO DAILY losartan-hydrochlorothiazide 100MG-25MG tablet 100 mg PO DAILY Patient Comments: omeprazole 20 MG capsule,delayed release(DR/EC) 20 mg PO DAILY Patient Comments: etodolac 400 MG tablet 400 mg PO BID Patient Comments: take 1 capsule by mouth three times a day multivitamin 1 EACH capsule 1 each PO DAILY calcium carbonate-vitamin D3 1 EACH capsule 1 each PO DAILY mecobalamin (vitamin B12) 1,000 MCG tablet,chewable 2,500 mcg PO DAILY trazodone 50 mg tablet 50 mg PO HS Patient Comments: TAKE 1 TABLET BY MOUTH AT NIGHT NEEDED FOR SLEEP aspirin 81 mg Capsule 81 mg PO DAILY Referrals Follow up/Referrals: Hussain Tenorio MD [Primary Care Provider] - See instructions Activity Restrictions/Add. Instructions Additional Instructions/Restrictions: Drink plenty of fluids. Take tylenol or ibuprofen for pain or fever. Take the medications as directed. Follow up with your regular doctor. GO TO THE ER FOR ANY WORSENING SYMPTOMS The pyridium will make your urine turn orange, this is an expected side effect. It will stain your clothes if it comes into contact with them. We will culture the urine. That will tell what bacteria is causing your infection and which antibiotics will treat it best. Sometimes the first antibiotic we prescribe turns out to not work against different bacteria. So, make sure you follow up within 3 days if you are not getting better. Clinical Impressions Clinical Impression: Acute UTI Instructions Patient Instructions: Urinary Tract Infection, DI for Urinary Tract Infection (UTI), Phenazopyridine, Urine Culture Print Language Print Language: [place] Discharge ED Provider: Kenrick Gonzalez [facility] [place] HPI General Stated complaint: frequent/painful urination, fever Time Seen by Provider: 12/06/23 15:09 History of Present Illness Provider Complaint: She states that for the past 2 days she has had dysuria, urinary frequency, and low back pain. Related Data Home Medications ?Medication ?Instructions ?Recorded ?Confirmed etodolac 400 mg tablet 400 mg PO BID Pain 07/05/17 12/24/22 losartan 100 100 mg PO DAILY blood pressure 07/05/17 12/24/22 mg-hydrochlorothiazide 25 mg tablet multivitamin 1 each PO DAILY Supplement 07/05/17 12/24/22 omeprazole 20 mg capsule,delayed 20 mg PO DAILY stomach 07/05/17 12/24/22 release calcium carbonate 600 mg-vitamin 1 each PO DAILY Supplement 07/25/20 12/24/22 D3 10 mcg (400 unit) capsule mecobalamin (vitamin B12) 1,000 2,500 mcg PO DAILY Supplement 07/25/20 12/24/22 mcg chewable tablet omega 8-dnc-fbi-fish oil 1,200 mg 1 cap PO DAILY Supplement 08/24/21 12/24/22 (144 mg-216 mg) capsule (Fish Oil) amlodipine 5 mg tablet 5 mg PO DAILY High blood pressure 10/05/21 12/24/22 propranolol 40 mg tablet 20 mg PO DAILY Tremor, hypertension 11/03/21 12/24/22 trazodone 50 mg tablet 50 mg PO HS sleep 11/06/22 12/24/22 aspirin 81 mg capsule 81 mg PO DAILY heart healthy 11/09/22 12/24/22 Previous Rx's ?Medication ?Instructions ?Recorded ciprofloxacin HCl 500 mg tablet 500 mg PO BID 7 days #14 tabs 12/06/23 (Cipro) ondansetron 4 mg disintegrating 4 mg PO Q8H PRN Nausea #12 tabs 12/06/23 tablet phenazopyridine 200 mg tablet 200 mg PO Q8H 2 days #6 tabs 12/06/23 (Pyridium) Allergies Allergy/AdvReac Type Severity Reaction Status Date / Time No Known Drug Allergies Allergy Unknown Verified 11/09/22 09:47 [NO KNOWN DRUG ALLERGIES] [facility] Disclaimer: The information contained in this section may have been updated after the patient was seen, as this information can be updated by other users. Medical History (Updated 12/06/23 @ 15:28 by Kenrick Gonzalez APRN) Sleep apnea Hypertension Surgical History Status post fusion of sacroiliac joint History of total knee arthroplasty H/O total hysterectomy Family History Other Cancer Coronary artery disease Diabetes FHx: mental illness Heart attack Hypertension Stroke Social History (Updated 11/09/22 @ 06:41 by Sachi Loyola, RN) Smoking Status: Never smoker second hand exposure: No alcohol intake: never substance use type: denies use current occupational status: other Travel in the last 8 weeks: None household members: significant other housing: house current occupational exposures/hazards: No caffeine: Yes ROS Obtained: Yes All systems reviewed & no additional complaints except as documented Constitutional Constitutional: Reports system reviewed and no additional complaints, except as documented, Denies chills and Denies fever(s) Eyes Eyes: Denies eye discharge ENT Ears, Nose, Mouth, and Throat: Denies dysphagia, Denies sore throat and Denies throat swelling Cardiovascular Cardiovascular: Denies chest pain and Denies dyspnea Respiratory Respiratory: Denies chest congestion, Denies cough and Denies dyspnea Gastrointestinal Gastrointestingal: Denies abdominal pain, constipation, diarrhea, dysphagia, nausea or vomiting Genitourinary Female Genitourinary: Reports as per HPI, Reports dysuria, Reports urinary frequency, Denies urinary incontinence, Reports urinary hesitancy and Reports urinary urgency Musculoskeletal Musculoskeletal: Denies arthralgias and Reports back pain Integumentary/Breasts Skin/Breast: Denies rash Neurologic Neurologic: Denies paresthesias Allergic/Immunologic Allergic/Immunologic: Denies throat swelling Physical Exam General General appearance: alert and in no apparent distress Head Head exam: atraumatic and normocephalic Eye Eye exam: Present normal appearance, PERRL and EOMI ENT ENT exam: Present normal exam, mucous membranes moist, TM's normal bilaterally and normal external ear exam Neck Neck exam: Present normal inspection, full ROM and trachea midline; Absent tenderness, meningismus or lymphadenopathy Chest Chest inspection: Present normal inspection and symmetric chest wall rise; Absent tenderness Respiratory Respiratory exam: Present normal lung sounds bilaterally; Absent respiratory distress, wheezes or stridor Cardiovascular Cardiovascular exam: Present regular rate, normal rhythm and normal heart sounds Abdominal Exam Abdominal exam: Present soft and normal bowel sounds; Absent distention, tenderness, guarding, rebound, rigidity, incision, psoas sign, obturator sign, heel tap sign, Cota's sign, Rovsing's sign or tenderness at McBurney's Point Extremities Exam Extremities exam: Present normal inspection, full ROM and normal capillary refill; Absent tenderness, edema, joint swelling, calf tenderness or cyanosis Back Exam Back exam: Present normal inspection and full ROM; Absent tenderness, CVA tenderness (R) or CVA tenderness (L) Neurological Exam Neurological exam: Present alert, oriented X3 and normal gait Psychiatric Psychiatric exam: Present normal affect and normal mood Skin Skin exam: Present warm, dry, intact and normal color Lymphatic Lymphatic Findings: no adenopathy Medical Decision Making Medical Records Medical records reviewed: No I reviewed the patient's medical records. Vern Inquiry Pt receiving controlled substance: No Lab Data Lab results reviewed: Yes I reviewed the patient's lab results.
[2023-12-06 16:42] LABS: Apearance,Urine Cloudy (Clear); Blood, Urine Negative (Negative); Color,Urine Yellow (Yellow); Glucose,Urine (UA) Negative (Negative); Ketones,Urine Negative (Negative); Protein,Urine Trace (Negative)
[2023-12-06 16:43] LABS: Bilirubin,Urine 3+ (Negative); UTC Leukocyte Esterase,Urine 1+ (Negative); UTC Nitrate,Urine Positive (Negative); Urobilinogen,Urine 0.2 EU/dl (0.2)
== END 2023-12-06 15:09 | disposition home or self-care (01) ==
PROVIDERS: Emergency Provider Nurse Practitioner Family; PCP Internal Medicine Adolescent Medicine
DX: N39.0 Urinary tract infection, site not specified (principal); B96.29 Other Escherichia coli [E. coli] as the cause of diseases classified elsewhere; M54.59 Other low back pain; R30.0 Dysuria; R35.0 Frequency of micturition
CPT/HCPCS: 81003; 87086; 87088; 87186; 99204; 99212; G0463

== ENCOUNTER 2024-01-17 10:00 | Outpatient (RCR) | payer MEDICARE, SELFPAY | END 2024-01-17 23:59 | disposition home or self-care (01) | LOC: PT 10:00 | PROVIDERS: Visit Provider Orthopaedic Surgery Adult Reconstructive Orthopaedic Surgery | DX: M25.551 Pain in right hip (principal); Z96.641 Presence of right artificial hip joint | CPT/HCPCS: 97110; 97116; 97163; 97164; 97530 ==

== ENCOUNTER 2025-03-08 08:10 | Outpatient (CLI) | payer MEDICARE, SELFPAY ==
--- NOTE | 2025-03-08 08:15 | MM_ITS ---
PROCEDURE INFORMATION: Exam: MG Bilateral Screening 3D Mammography Exam date and time: 03/08/2025 8:32 AM Age: 74 years old Clinical indication: Screening examination TECHNIQUE: Imaging protocol: Bilateral Screening tomosynthesis and 2D mammography including computer-aided detection (CAD) when performed. COMPARISON: 1. MG MM DIG SCREENING MAMM BI W/CAD 08/21/2021 8:25 AM 2. MG MM DIG SCREENING MAMM BI W/CAD 11/16/2019 9:16 AM FINDINGS: MAMMOGRAPHY: Breast composition: There are scattered areas of fibroglandular density. Mass: Questioned 0.6 cm mass medial right breast anterior depth. Architectural distortion: None. Calcifications: No suspicious calcifications. Asymmetric density: None. Skin thickening: None. Axillary adenopathy: None. IMPRESSION: Questioned subcentimeter right breast mass.Recommend right breast diagnostic mammogram including spot compression views of the right breast in the CC and MLO projections, a full 90 degree lateral view, and right breast ultrasound for further evaluation. ASSESSMENT: BI-RADS Category 0: Incomplete- Need Additional Imaging Evaluation.
--- NOTE | 2025-03-08 08:50 | XR_ITS ---
FINAL REPORT TECHNIQUE: Bone densitometry calculations of the lumbar spine and left hip were obtained. CLINICAL HISTORY: SCREENING right hip replaced COMPARISON: 08/21/2021 FINDINGS: Using L1-4, the bone mineral density of the spine is 1.208 g/cm2, corresponding to T-score of 1.5 and a Z score of 3.9. This is within the range of normal. The bone mineral density change versus baseline is 7.3%. Using the left hip, the bone mineral density of the femoral neck is 0.727 g/cm2, corresponding to a T-score of -1.1 and a Z-score of 1.0. This is within the range of osteopenia. The bone mineral density change versus baseline is -1.6%. NOTE: T-score: Standard deviation compared with peak bone mass of young adult mean. *Following the recommendations of the International Society of Bone densitometry, classification of hip BMD is based on the lower of two T-scores; total hip or femoral neck. IMPRESSION: 1. Bone mineral density of the lumbar spine within the range of normal, and is slightly improved since the prior DEXA of 2021. 2. Bone mineral density of the left femoral neck within the range of osteopenia, and is slightly worse when compared to the prior exam of 2021. Reviewed, Interpreted and Dictated by Misty Julio MD Transcribed by Martha Grady Authenticated and [facility]
== END 2025-03-08 23:59 | disposition home or self-care (01) ==
LOC: RAD 08:10
PROVIDERS: PCP Internal Medicine Adolescent Medicine; Visit Provider Nurse Practitioner Family
DX: Z12.31 Encounter for screening mammogram for malignant neoplasm of breast (principal); N63.10 Unspecified lump in the right breast, unspecified quadrant; M85.852 Other specified disorders of bone density and structure, left thigh; R92.323 Mammographic fibroglandular density, bilateral breasts
CPT/HCPCS: 77063; 77067; 77080